=== PATIENT | male | born 1970 | race Caucasian/White ===

== ENCOUNTER 2020-06-05 20:19 | Inpatient (IN) ==
[2020-06-05] MEDS ORDERED: SODIUM CHLORIDE 0.9% 1000ML 1,000 ML IV STA (20:58)
[2020-06-05] MEDS ORDERED: ONDANSETRON INJ 2 MG/ML 2 ML VIAL IV STA ×2 (20:58→22:43)
[2020-06-05] MEDS ORDERED: MoRPHine SULFATE 4 MG/ML 1 ML CARP\\VIAL IV STA ×2 (20:58→22:43)
[2020-06-05 21:18] LABS: Basophils # (auto) 0.03 K/uL (0-0.2); Basophils % (auto) 0.2 %; Eosinophils # (auto) 0.13 K/uL (0-0.5); Eosinophils % (auto) 0.8 %; Hematocrit (blood only) 43.5 % (42-52); Hemoglobin 15.4 g/dL (14.0-18.0); Immature Granulocytes # (auto) 0.11 K/uL (0.00-0.02); Immature Granulocytes % (auto) 0.7 %; Lymphocytes # (auto) 2.59 K/uL (1.2-3.4); Lymphocytes % (auto) 16.7 %; Mean Corpuscular Hemoglobin 31.1 pg (25-34); Mean Corpuscular Hgb Conc 35.4 g/dL (32-36); Mean Corpuscular Volume 87.9 fL (80-100); Mean Platelet Volume 10.6 fL (7.4-10.4); Monocytes # (auto) 1.01 K/uL (0.11-0.59); Monocytes % (auto) 6.5 %; Neutrophils % (auto) 75.1 %; Platelet Count 202 K/uL (130-400); RDW Coefficient of Variation 12.8 % (11.5-14.5); RDW Standard Deviation 41.3 fL (36.4-46.3); Red Blood Count 4.95 M/uL (4.7-6.1); White Blood Count 15.47 K/uL (4.8-10.8)
[2020-06-05 21:29] LABS: INR 1.1 (0.9-1.1); Partial Thromboplastin Ratio 0.9; Partial Thromboplastin Time 22.4 Seconds (21.0-31.0)
[2020-06-05 21:33] LABS: Alanine Aminotransferase 25 U/L (12-78); Aspartate Aminotransferase 32 U/L (15-37); BUN Creatinine Ratio 19.5 (10-20); Bilirubin Direct < 0.1 mg/dl (0-0.2); Blood Urea Nitrogen 24 mg/dl (7-18); Calcium 8.8 mg/dl (8.5-10.1); Carbon Dioxide 22 mmol/L (21-32); Chloride 111 mmol/L (98-107); Creatinine Clr Calc Pharmacy 82.4 ml/min; Est GFR (African American) 77.5; Est GFR (Non-African American) 66.9; Glucose 136 mg/dl (70-99); Potassium 2.9 mmol/L (3.5-5.1); Sodium 142 mmol/L (136-145)
[2020-06-05 21:41] LABS: Alkaline Phosphatase 54 U/L (45-117); Bilirubin,Total 0.7 mg/dl (0.2-1); Lipase 27643 U/L (73-393); Total Protein 7.4 gm/dl (6.4-8.2); Troponin I < 0.015 ng/ml (0-0.045)
[2020-06-05 22:08] LABS: D Dimer 640 ug/L FEU (0-500)
[2020-06-05] MEDS ORDERED: SODIUM CHLORIDE 0.9% 1000ML 1,000 ML IV ONE (22:43)
[2020-06-05] MEDS ORDERED: OPTIRAY 320 125ml IV ONE (23:45)
[2020-06-06 00:56] LABS: Influenza A virus by PCR Negative (Neg); Influenza B virus by PCR Negative (Neg); RSV by PCR Negative (Neg); SARS CoV2 RNA(COVID-19) InHosp NEGATIVE (Negative)
[2020-06-06] MEDS ORDERED: ONDANSETRON INJ 2 MG/ML 2 ML VIAL IV STA (01:34)
[2020-06-06] MEDS ORDERED: SODIUM CHLORIDE 0.9% 1000ML 1,000 ML IV SCH (01:45)
[2020-06-06] MEDS: POTASSIUM CHLORIDE / WTR 10 MEQ/100 ML PLCT IV SCH ×2 (01:59→03:18)
--- NOTE | 2020-06-06 02:07 | History & Physical Report ---
Date of Service June 06, 2020 Assessment & Plan (1) Acute pancreatitis: Lipase 12446 upon admission. Follow serial CBC with differential, chemistry profile and lipase levels CT angiography chest PE protocol is negative for PE. Aneurysm of the aortic root measuring 5 cm. Mild cardiomegaly. Heterogeneous opacities in the left upper lobe and both lower lobes suggesting atelectasis or infiltrates NPO Famotidine 20 mg IV every 12 hours NSS + KCl 20 mEq at 125 mils per hour Zofran 4 mg IV every 6 hours as needed Famotidine 20 mg IV every [address] scan abdomen Order MRCP, since patient has already had CT angiography of chest, and unable to use dye for CT of abdomen and pelvis Will need orbital x-rays Present on Admission?: Yes (2) Hypokalemia: NSS + KCl 20 mEq at 125 mils per hour. Patient did receive 210 mEq riders while in the ED Repeat laboratories in a.m. Present on Admission?: Yes (3) Pneumonia: CT angiography suggesting infiltrates left upper and bilateral lower lobes. Hypoxia, with lowest pulse ox recorded 78% on room air With history of vomiting, may represent aspiration. Placed on Zosyn 4.5 g IV every 8 hours DuoNebs every 2 hours as needed Nasal cannula oxygen, titrate to keep pulse ox 94 to 95% Present on Admission?: Yes History of Present Illness Chief Complaint: The patient presents to the emergency department with acute onset of back pain, nausea vomiting about 7 PM this evening, about 1 1/2 hours after supper Primary Care Provider: Dharmesh Ryan The patient is a 50-year-old male with no significant past medical history, who presents with symptoms of acute onset of back pain, nausea and vomiting about 1- 1/2 hours after eating supper this evening. He said no previous occurrence of the symptoms. He denies any recent travel or sick exposures. He denies any alcohol use. Allergies Allergy/AdvReac Type Severity Reaction Status Date / Time No Known Allergies Allergy Verified 06/05/20 21:06 Home Medications Medication Instructions Recorded Confirmed Type No Known Home Medications 06/05/20 06/05/20 History Past Med/Surg History Medical History (Updated 06/06/20 @ 03:12 by Ar Hoyt MD) No pertinent family history No pertinent past medical history Surgical History (Updated 06/06/20 @ 02:13 by Vick Boswell) No pertinent past surgical history Social History Smoking Status: Never smoker Hx Alcohol Use: No Hx Substance Use: No Preferred Language: Belarusian Communication Ability: Effective Air Boatswain Required: No Current Living Situation: Spouse Feels Safe at Home: Yes Assistive Devices: None Review of Systems Review of Systems: The patient denies chest pain, palpitations, shortness of breath, dyspnea on exertion, cough, lower extremity swelling, sore throat, fevers, chills, sweats, diarrhea , constipation, abdominal pain, pelvic pain, blood in urine or stool, dysuria, urinary frequency or urgency, lightheadedness, dizziness, headache, memory loss, loss of consciousness, rash, abnormal bruising or bleeding, imbalance, focal or generalized weakness, numbness or tingling in arms or legs, generalized arthralgias or myalgias, neck pain, or night sweats. The review of systems is otherwise negative other than for that already noted above, and at least 10 systems have been reviewed. Physical Exam Physical Exam: The patient is awake, alert and oriented 3, well developed and well nourished, normocephalic and atraumatic, lying in bed and in no acute distress. HEENT--PERRL, EOMI, mucous membranes and oropharynx dry. Neck--supple. No JVD. No bruits. Thyroid normal, trachea midline, no theron opathy. Heart--normal S1 and S2. No murmurs, rubs or gallops. Lungs--clear bilaterally, no respiratory distress, no accessory muscle use. Abdomen--normal bowel sounds and soft. Tender left flank. Nondistended Extremities--no cyanosis or clubbing. No edema. Dermatologic--normal skin turgor, normal color, no abnormal lymph nodes, no rash. Neurologic--cranial nerves II through XII grossly intact. Rheumatologic--normal range of motion. Psychiatric--normal affect. Results & Data Results & Data ([facility]) Vital Signs (Past 12 Hours) Vital Signs Temp Pulse Resp BP Pulse Ox 06/06/20 00:49 92 06/06/20 00:48 66 24 149/93 H 90 06/06/20 00:30 64 21 06/06/20 00:00 73 20 06/05/20 23:30 91 06/05/20 23:00 94 06/05/20 22:58 93 06/05/20 22:08 126/82 06/05/20 21:30 58 L 17 125/76 99 06/05/20 21:20 58 L 14 98 06/05/20 21:15 55 L 15 117/77 95 06/05/20 21:10 69 22 93 06/05/20 21:00 58 L 20 95 06/05/20 20:50 65 15 94 06/05/20 20:40 65 22 96 06/05/20 20:39 61 20 96 06/05/20 20:38 98.1 F 56 L 20 117/71 96 06/05/20 20:33 60 26 H 117/71 96 Laboratory Results Laboratory Results WBC 15.47 K/uL (4.8-10.8) H 06/05/20 20:30 RBC 4.95 M/uL (4.7-6.1) 06/05/20 20:30 Hgb 15.4 g/dL (14.0-18.0) 06/05/20 20:30 Hct 43.5 % (42-52) 06/05/20 20:30 MCV 87.9 fL (80-100) 06/05/20 20:30 MCH 31.1 pg (25-34) 06/05/20 20:30 MCHC 35.4 g/dL (32-36) 06/05/20 20:30 RDW Std Deviation 41.3 fL (36.4-46.3) 06/05/20 20:30 RDW Coeff of Brittany 12.8 % (11.5-14.5) 06/05/20 20:30 Plt Count 202 K/uL (130-400) 06/05/20 20:30 MPV 10.6 fL (7.4-10.4) H 06/05/20 20:30 Immature Gran % (Auto) 0.7 % 06/05/20 20:30 Neut % (Auto) 75.1 % 06/05/20 20:30 Lymph % (Auto) 16.7 % 06/05/20 20:30 Barron % (Auto) 6.5 % 06/05/20 20:30 Eos % (Auto) 0.8 % 06/05/20 20:30 Baso % (Auto) 0.2 % 06/05/20 20:30 Neut # (Auto) 11.60 K/uL (1.4-6.5) H 06/05/20 20:30 Lymph # (Auto) 2.59 K/uL (1.2-3.4) 06/05/20 20:30 Barron # (Auto) 1.01 K/uL (0.11-0.59) H 06/05/20 20:30 Eos # (Auto) 0.13 K/uL (0-0.5) 06/05/20 20:30 Baso # (Auto) 0.03 K/uL (0-0.2) 06/05/20 20:30 Immature Gran # (Auto) 0.11 K/uL (0.00-0.02) H 06/05/20 20:30 PT 11.0 Seconds (9.0-12.0) 06/05/20 20:30 INR 1.1 (0.9-1.1) 06/05/20 20:30 APTT 22.4 Seconds (21.0-31.0) 06/05/20 20:30 PTT Ratio 0.9 06/05/20 20:30 D-Dimer 640 ug/L FEU (0-500) H* 06/05/20 20:30 Sodium 142 mmol/L (136-145) 06/05/20 20:30 Potassium 2.9 mmol/L (3.5-5.1) L 06/05/20 20:30 Chloride 111 mmol/L (98-107) H 06/05/20 20:30 Carbon Dioxide 22 mmol/L (21-32) 06/05/20 20:30 Anion Gap 9.0 (3-11) 06/05/20 20:30 BUN 24 mg/dl (7-18) H 06/05/20 20:30 Creatinine 1.24 mg/dl (0.6-1.4) 06/05/20 20:30 Est Cr Clr Drug Dosing 82.4 ml/min 06/05/20 20:30 Est GFR ( Amer) 77.5 06/05/20 20:30 Est GFR (Non-Af Amer) 66.9 06/05/20 20:30 BUN/Creatinine Ratio 19.5 (10-20) 06/05/20 20:30 Glucose 136 mg/dl (70-99) H 06/05/20 20:30 Calcium 8.8 mg/dl (8.5-10.1) 06/05/20 20:30 Total Bilirubin 0.7 mg/dl (0.2-1) 06/05/20 20:30 Direct Bilirubin < 0.1 mg/dl (0-0.2) 06/05/20 20:30 AST 32 U/L (15-37) 06/05/20 20:30 ALT 25 U/L (12-78) 06/05/20 20:30 Alkaline Phosphatase 54 U/L (45-117) 06/05/20 20:30 Troponin I < 0.015 ng/ml (0-0.045) 06/05/20 20:30 Total Protein 7.4 gm/dl (6.4-8.2) 06/05/20 20:30 Albumin 4.0 gm/dl (3.4-5.0) 06/05/20 20:30 Lipase 79946 U/L (73-393) H 06/05/20 20:30 COVID-19 Eval Order CovFluRsv at [facility] 06/06/20 00:01 SARS-CoV-2 (PCR) NEGATIVE (Negative) 06/06/20 00:01 Influenza Type A (PCR) Negative (Neg) 06/06/20 00:01 Influenza Type B (PCR) Negative (Neg) 06/06/20 00:01 RSV (RT-PCR) Negative (Neg) 06/06/20 00:[address] [facility] Patient: LIDIA PRECIADO (Male) : 68 Status: ER Date: 06/05/20 23:54 Room #: History: SHORTNESS OF BREATH, ABDOMINAL PAINS, NAUSEA AND VOMITING Slices: [id number] Priors: Tech: Shelby Joiner @ [phone] Exams: CTA CHEST Contrast: IV Amt: 119ML OF OPTIRAY 320 Accession Numbers: [id number] Preliminary Findings Only See Final Report For Complete Findings CTA CHEST: No acute pulmonary embolism. Aneurysm of the aortic root measuring 5 cm. Mild cardiomegaly. No pericardial effusion. Heterogeneous dependent opacities in the left upper lobe and both lower lobes, atelectasis or infiltrates. No pleural effusion or pneumothorax. Small sliding-type hiatal hernia. No acute osseous findings. Radiologist: Patrick Rasmussen M.D. Study ready at 00:00 and initial results transmitted at 00:11 *This report constitutes a preliminary interpretation only. Non-acute findings felt to be unrelated to the clinical presentation may not be discussed in this report. The study will be interpreted and a final report will be generated by the local Radiologist the following shift. To reach the hospital radiology department call [phone]. If a discrepancy is found between the preliminary and final interpretations of this study, please notify us via our Client Portal at [email or web address] under [email or web address].You can also fax this report with a description of the discrepancy, or include the final report, to our daytime fax number [phone].If faxing, please indicate the severity of discrepancy using one of the following categories: [ ] 1 - Agree/Informational [ ] 2 - Unlikely to Affect Management [ ] 3 - Possible Eventual Change of Management [ ] 4 - Probable Immediate Change of Management For all other patient related information, please fax us at [phone]. [id number] Code Status & VTE Plan Code Status Full code VTE Prophylaxis Plan VTE Prophylaxis will be ordered: Yes PG Care Time/CCT Total # of Minutes Spent Total Time Spent with Patient: Total time spent is greater than 50% in coordination of care (as documented) at patient's floor/unit and/or counseling patient: Coding Level of Care Code 87424 Initial Inpt Care Lvl 3 Diagnoses Acute pancreatitis K85.90 Acute pancreatitis complication: unspecified Pancreatitis type: unspecified pancreatitis type Hypokalemia E87.6 Pneumonia J18.9 (1) Acute pancreatitis Acute pancreatitis complication: unspecified Pancreatitis type: unspecified pancreatitis type Qualified Code(s): K85.90 - Acute pancreatitis without necrosis or infection, unspecified
--- NOTE | 2020-06-06 02:18 | Emergency Department Note ---
History of Present Illness General Chief Complaint: Abdominal Pain Time Seen by Provider: 06/05/20 20:30 History of Present Illness Provider Complaint: abdominal pain Onset (ago): 1 day(s) Pain Consistency: constant Location: epigastric Radiation: back Migration to: no migration Severity: moderate Maximum Pain Intensity: 5 Current Pain Intensity: 5 Quality: + stabbing and + sharp Relieved By: + nothing Exacerbated By: + nothing Context: no foreign travel, no possible food poisoning, no recent antibiotic use and no recent surgery/procedure Associated Symptoms: + nausea, + vomiting and + back pain; no diarrhea, no fever, no dysuria, no hematemesis, no hematochezia, no melena, no hematuria, no anorexia, no neck pain and no breathing difficulty Home Medications Medication Instructions Recorded Confirmed Type No Known Home Medications 06/05/20 06/05/20 History Allergies Allergy/AdvReac Type Severity Reaction Status Date / Time No Known Allergies Allergy Verified 06/05/20 21:06 Past Med/Surg History Medical History (Updated 06/06/20 @ 02:22 by Vick Boswell) No pertinent family history No pertinent past medical history Surgical History (Updated 06/06/20 @ 02:13 by Vick Boswell) No pertinent past surgical history Social History Smoking Status: Never smoker Hx Alcohol Use: No Hx Substance Use: No Preferred Language: Macedonian Communication Ability: Effective 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 Current Living Situation: Spouse Feels Safe at Home: Yes Assistive Devices: None Review of Systems A total of 10 systems reviewed and were otherwise negative Physical Exam Vital Signs: Vital Signs - 24 hr 06/05/20 20:33 06/05/20 20:38 06/05/20 20:39 Temperature 36.7 C Temperature Source Oral Pulse Rate 60 56 L 61 Pulse Rate from Sp O2 Sensor 60 61 Respiratory Rate 26 H 20 20 Respiratory Effort / Characteristics Non-Labored Sponta neous Respiratory Depth Normal Blood Pressure 117/71 117/71 Blood Pressure Shayy n 86 86 Blood Pressure Pos ition Lying Pulse Oximetry 96 96 96 Oxygen Delivery Me thod Room Air Oxygen Flow Rate Sepsis Recent Feve r Within 48 Hours No Sepsis New/Unexpla ined Change in Men jazzy Status No Sepsis Action Take n by Nursing No Action Required Oxygen Flow Rate - Titration Pulse Oximetry Pos t Tiitration 06/05/20 20:40 06/05/20 20:50 06/05/20 21:00 Temperature Temperature Source Pulse Rate 65 65 58 L Pulse Rate from Sp O2 Sensor 65 66 58 L Respiratory Rate 22 15 20 Respiratory Effort / Characteristics Respiratory Depth Blood Pressure Blood Pressure Shayy n Blood Pressure Pos ition Pulse Oximetry 96 94 95 Oxygen Delivery Me thod Room Air Oxygen Flow Rate Sepsis Recent Feve r Within 48 Hours Sepsis New/Unexpla ined Change in Men jazzy Status Sepsis Action Take n by Nursing Oxygen Flow Rate - Titration Pulse Oximetry Pos t Tiitration 06/05/20 21:10 06/05/20 21:15 06/05/20 21:20 Temperature Temperature Source Pulse Rate 69 55 L 58 L Pulse Rate from Sp O2 Sensor 69 55 L 58 L Respiratory Rate 22 15 14 Respiratory Effort / Characteristics Respiratory Depth Blood Pressure 117/77 Blood Pressure Shayy n 90 Blood Pressure Pos ition Pulse Oximetry 93 95 98 Oxygen Delivery Me thod Room Air Oxygen Flow Rate Sepsis Recent Feve r Within 48 Hours Sepsis New/Unexpla ined Change in Men jazzy Status Sepsis Action Take n by Nursing Oxygen Flow Rate - Titration 3 Pulse Oximetry Pos t Tiitration 97 06/05/20 21:30 06/05/20 22:08 06/05/20 22:58 Temperature Temperature Source Pulse Rate 58 L Pulse Rate from Sp O2 Sensor 58 L 64 Respiratory Rate 17 Respiratory Effort / Characteristics Respiratory Depth Blood Pressure 125/76 126/82 Blood Pressure Shayy n 92 96 Blood Pressure Pos ition Pulse Oximetry 99 93 Oxygen Delivery Me thod Oxygen Flow Rate Sepsis Recent Feve r Within 48 Hours Sepsis New/Unexpla ined Change in Men jazzy Status Sepsis Action Take n by Nursing Oxygen Flow Rate - Titration Pulse Oximetry Pos t Tiitration 06/05/20 23:00 06/05/20 23:30 06/06/20 00:00 Temperature Temperature Source Pulse Rate 73 Pulse Rate from Sp O2 Sensor 62 63 Respiratory Rate 20 Respiratory Effort / Characteristics Respiratory Depth Blood Pressure Blood Pressure Shayy n Blood Pressure Pos ition Pulse Oximetry 94 91 Oxygen Delivery Me thod Oxygen Flow Rate Sepsis Recent Feve r Within 48 Hours Sepsis New/Unexpla ined Change in Men jazzy Status Sepsis Action Take n by Nursing Oxygen Flow Rate - Titration Pulse Oximetry Pos t Tiitration 06/06/20 00:30 06/06/20 00:48 06/06/20 00:49 Temperature Temperature Source Pulse Rate 64 66 Pulse Rate from Sp O2 Sensor Respiratory Rate 21 24 Respiratory Effort / Characteristics Respiratory Depth Blood Pressure 149/93 H Blood Pressure Shayy n 111 Blood Pressure Pos ition Pulse Oximetry 90 92 Oxygen Delivery Me thod Room Air Nasal Cannula Oxygen Flow Rate 2 Sepsis Recent Feve r Within 48 Hours Sepsis New/Unexpla ined Change in Men jazzy Status Sepsis Action Take n by Nursing Oxygen Flow Rate - Titration Pulse Oximetry Pos t Tiitration Physical Exam: Physical Exam GENERAL: He is oriented to person, place, and time. He appears well-developed and well-nourished. He does not appear distressed. HENT: Exam performed. - Head: Normocephalic and atraumatic. - Right Ear: External ear normal. No mastoid tenderness. - Left Ear: External ear normal. No mastoid tenderness. - Mouth/Throat: The oropharynx is clear and moist. No trismus in the jaw. No dental abscesses or uvula swelling. No oropharyngeal exudate or tonsillar abscesses. EYES: Conjunctivae and EOM are normal. Pupils are equal, round, and reactive to light. Right eye exhibits no discharge. Left eye exhibits no discharge. No scleral icterus. NECK: Normal range of motion. Neck supple. No JVD present. No spinous process tenderness present. No carotid bruit present. No rigidity. No tracheal deviation and normal range of motion present. No Brudzinski's sign and no Kernig's sign noted. CV: Normal rate, regular rhythm, normal heart sounds and intact distal pulses. There is no peripheral edema. Palpable radial pulses bue. PULM/CHEST: Effort normal and breath sounds normal. No respiratory distress. No stridor. He has no wheezes. He has no rales. - Chest Wall: He exhibits no tenderness. ABD: The abdomen is soft. Bowel sounds are normal. He has no distension. No mass is present. There is tenderness to palpation of the epigastric area. There is no rebound, no guarding, no Chang's sign and no tenderness at McBurney's point. Rovsig negative. MUSC/SKEL: Normal range of motion. There is no peripheral edema, tenderness or deformity. LYMPH: No cervical adenopathy. NEURO: He is alert and oriented to person, place, and time. He has normal strength. No cranial nerve deficit or sensory deficit. Coordination and gait normal. GCS eye subscore is 4. GCS verbal subscore is 5. GCS motor subscore is 6. Cerebellar tests wnl. SKIN: Skin is warm and dry. He is not diaphoretic. PSYCH: He has a normal mood and affect. Behavior is normal. Judgment and thought content normal. Course Course 2030: The patient was evaluated in room C12. A complete history and physical exam was performed Cardiac monitoring: An order was placed for continuous cardiac monitoring. The monitor shows a rate of 60 with sinus rhythm 2245: Vital signs stable. Labs show leukocytosis of 15.4. Potassium 2.9. Lipase 27,643. D-dimer elevated 640. Will obtain CTA of the chest and plan on admitting the patient to the hospitalist team. Potassium will be replaced in the emergency department. 0015: CTA negative for PE. Patient required multiple doses of pain medication for pancreatitis. Will admit to the hospital service Dr. Rosy Romano any hospitalist. Administered Medications Sodium Chloride (Nss 1000ml) 1,000 mls @ 125 mls/hr IV .Q8H ARIANA Stop: 07/06/20 01:44 Last Admin: 06/06/20 01:59 Dose: 125 mls/hr Documented by: [id number] Potassium Chloride (K Cameron / Wtr) 10 meq in 100 mls @ 100 mls/hr IV Q1H ARIANA Stop: 06/06/20 03:44 Last Admin: 06/06/20 01:59 Dose: 100 mls/hr Documented by: [id number] Discontinued Medications Sodium Chloride (Nss 1000ml) 1,000 mls @ 999 mls/hr IV .Q1H1M STA Stop: 06/05/20 21:58 Last Infusion: 06/05/20 22:05 Dose: 0 mls/hr Documented by: [id number] Admin: 06/05/20 21:04 Dose: 999 mls/hr Documented by: [id number] Sodium Chloride (Nss 1000ml) 1,000 mls @ 999 mls/hr IV .Q1H1M ONE Stop: 06/05/20 23:43 Last Infusion: 06/06/20 00:49 Dose: 0 mls/hr Documented by: [id number] Admin: 06/05/20 22:56 Dose: 999 mls/hr Documented by: [id number] Ioversol (Optiray 320 125ml) 119 ml IV ONCE ONE Stop: 06/05/20 23:46 Last Admin: 06/05/20 23:45 Dose: 119 ml Documented by: [id number] Morphine Sulfate (Morphine Sulfate 4 Mg/Ml 1 Ml Carp\Vial) 4 mg IV NOW STA Stop: 06/05/20 20:59 Last Admin: 06/05/20 21:04 Dose: 4 mg Documented by: [id number] Morphine Sulfate (Morphine Sulfate 4 Mg/Ml 1 Ml Carp\Vial) 4 mg IV NOW STA Stop: 06/05/20 22:44 Last Admin: 06/05/20 22:56 Dose: 4 mg Documented by: [id number] Ondansetron HCl (Ondansetron Inj 2 Mg/Ml 2 Ml Vial) 4 mg IV NOW STA Stop: 06/05/20 20:59 Last Admin: 06/05/20 21:04 Dose: 4 mg Documented by: [id number] Ondansetron HCl (Ondansetron Inj 2 Mg/Ml 2 Ml Vial) 4 mg IV NOW STA Stop: 06/05/20 22:44 Last Admin: 06/05/20 22:56 Dose: 4 mg Documented by: [id number] Ondansetron HCl (Ondansetron Inj 2 Mg/Ml 2 Ml Vial) 4 mg IV NOW STA Stop: 06/06/20 01:35 Last Admin: 06/06/20 01:59 Dose: 4 mg Documented by: [id number] Medical Decision Making Laboratory Data Result diagrams: 06/05/20 20:30 06/05/20 20:30 Lab Results 06/05/20 06/05/20 06/05/20 Range/Units 20:30 20:30 20:30 WBC 15.47 H (4.8-10.8) K/uL RBC 4.95 (4.7-6.1) M/uL Hgb 15.4 (14.0-18.0) g/dL Hct 43.5 (42-52) % MCV 87.9 (80-100) fL MCH 31.1 (25-34) pg MCHC 35.4 (32-36) g/dL RDW Std Deviation 41.3 (36.4-46.3) fL RDW Coeff of Brittany 12.8 (11.5-14.5) % Plt Count 202 (130-400) K/uL MPV 10.6 H (7.4-10.4) fL Immature Gran % (Auto) 0.7 % Neut % (Auto) 75.1 % Lymph % (Auto) 16.7 % [place] % (Auto) 6.5 % Eos % (Auto) 0.8 % Baso % (Auto) 0.2 % Neut # (Auto) 11.60 H (1.4-6.5) K/uL Lymph # (Auto) 2.59 (1.2-3.4) K/uL [place] # (Auto) 1.01 H (0.11-0.59) K/uL Eos # (Auto) 0.13 (0-0.5) K/uL Baso # (Auto) 0.03 (0-0.2) K/uL Immature Gran # (Auto) 0.11 H (0.00-0.02) K/uL PT 11.0 (9.0-12.0) Seconds INR 1.1 (0.9-1.1) APTT 22.4 (21.0-31.0) Seconds PTT Ratio 0.9 D-Dimer 640 H* (0-500) ug/L FEU Sodium 142 (136-145) mmol/L Potassium 2.9 L (3.5-5.1) mmol/L Chloride 111 H (98-107) mmol/L Carbon Dioxide 22 (21-32) mmol/L Anion Gap 9.0 (3-11) BUN 24 H (7-18) mg/dl Creatinine 1.24 (0.6-1.4) mg/dl Est Cr Clr Drug Dosing 82.4 ml/min Est GFR ( Amer) 77.5 Est GFR (Non-Af Amer) 66.9 BUN/Creatinine Ratio 19.5 (10-20) Glucose 136 H (70-99) mg/dl Calcium 8.8 (8.5-10.1) mg/dl Total Bilirubin 0.7 (0.2-1) mg/dl Direct Bilirubin < 0.1 (0-0.2) mg/dl AST 32 (15-37) U/L ALT 25 (12-78) U/L Alkaline Phosphatase 54 (45-117) U/L Troponin I < 0.015 (0-0.045) ng/ml Total Protein 7.4 (6.4-8.2) gm/dl Albumin 4.0 (3.4-5.0) gm/dl Lipase 43341 H (73-393) U/L COVID-19 Eval Order SARS-CoV-2 (PCR) (Negative) Influenza Type A (PCR) (Neg) Influenza Type B (PCR) (Neg) RSV (RT-PCR) (Neg) 06/06/20 06/06/20 Range/Units 00:01 00:01 WBC (4.8-10.8) K/uL RBC (4.7-6.1) M/uL Hgb (14.0-18.0) g/dL Hct (42-52) % MCV (80-100) fL MCH (25-34) pg MCHC (32-36) g/dL RDW Std Deviation (36.4-46.3) fL RDW Coeff of Brittany (11.5-14.5) % Plt Count (130-400) K/uL MPV (7.4-10.4) fL Immature Gran % (Auto) % Neut % (Auto) % Lymph % (Auto) % [place] % (Auto) % Eos % (Auto) % Baso % (Auto) % Neut # (Auto) (1.4-6.5) K/uL Lymph # (Auto) (1.2-3.4) K/uL [place] # (Auto) (0.11-0.59) K/uL Eos # (Auto) (0-0.5) K/uL Baso # (Auto) (0-0.2) K/uL Immature Gran # (Auto) (0.00-0.02) K/uL PT (9.0-12.0) Seconds INR (0.9-1.1) APTT (21.0-31.0) Seconds PTT Ratio D-Dimer (0-500) ug/L FEU Sodium (136-145) mmol/L Potassium (3.5-5.1) mmol/L Chloride (98-107) mmol/L Carbon Dioxide (21-32) mmol/L Anion Gap (3-11) BUN (7-18) mg/dl Creatinine (0.6-1.4) mg/dl Est Cr Clr Drug Dosing ml/min Est GFR ( Amer) Est GFR (Non-Af Amer) BUN/Creatinine Ratio (10-20) Glucose (70-99) mg/dl Calcium (8.5-10.1) mg/dl Total Bilirubin (0.2-1) mg/dl Direct Bilirubin (0-0.2) mg/dl AST (15-37) U/L ALT (12-78) U/L Alkaline Phosphatase (45-117) U/L Troponin I (0-0.045) ng/ml Total Protein (6.4-8.2) gm/dl Albumin (3.4-5.0) gm/dl Lipase (73-393) U/L COVID-19 Eval Order CovFluRsv at [facility] SARS-CoV-2 (PCR) NEGATIVE (Negative) Influenza Type A (PCR) Negative (Neg) Influenza Type B (PCR) Negative (Neg) RSV (RT-PCR) Negative (Neg) Imaging Data My Impression: Chest x-ray negative. Airway clear. No pneumothorax. No consolidation. No cardiomegaly or cephalization.. No free air under the diaphragm. No fractures of the skeletal structures. No air-fluid levels. Radiologist's Impression: Preliminary Findings Only See Final Report For Complete Findings CTA CHEST: No acute pulmonary embolism. Aneurysm of the aortic root measuring 5 cm. Mild cardiomegaly. No pericardial effusion. Heterogeneous dependent opacities in the left upper lobe and both lower lobes, atelectasis or infiltrates. No pleural effusion or pneumothorax. Small sliding-type hiatal hernia. No acute osseous findings. Radiologist: Patrick Rasmussen M.D. Study ready at 00:00 and initial results transmitted at 00:11 Preliminary Findings Only See Final Report For Complete Findings US GALLBLADDER: No cholelithiasis. Borderline gallbladder wall thickness measuring 3 mm. No convincing imaging findings of acute cholecystitis. No biliary dilatation. No hydronephrosis of the right kidney. Liver is unremarkable. Radiologist: Patrick Rasmussen M.D. Study ready at 22:29 and initial results transmitted at 22:55 ECG Data Indication: abdominal pain Rate (beats per minute): 56 Rhythm: normal sinus Findings: no ST depression, no ST elevation and no prolonged QT MDM Narrative 2030: The patient was evaluated in room C12. A complete history and physical exam was performed Cardiac monitoring: An order was placed for continuous cardiac monitoring. The monitor shows a rate of 60 with sinus rhythm 2245: Vital signs stable. Labs show leukocytosis of 15.4. Potassium 2.9. Lipase 27,643. D-dimer elevated 640. Will obtain CTA of the chest and plan on admitting the patient to the hospitalist team. Potassium will be replaced in the emergency department. 0015: CTA negative for PE. Patient required multiple doses of pain medication for pancreatitis. Will admit to the hospital service Dr. Gallegos [facility] hospitalist. Impression & Plan Acute pancreatitis Discharge Plan Visit Data Chief Complaint: Abdominal Pain ED Provider: Vick Boswell Discharge Problem: Acute pancreatitis Patient Disposition: Admitted As Inpatient Forms Stand Alone Forms: [place] Prescriptions Prescriptions: No Action No Known Home Medications RF: 0 Referrals Referrals: Dharmesh Ryan [Primary Care Provider] - Discharge Problem: Acute pancreatitis Qualifiers: Pancreatitis type: unspecified pancreatitis type Acute pancreatitis complication: unspecified Qualified Code(s): K85.90 - Acute pancreatitis without necrosis or infection, unspecified
[2020-06-06] MEDS ORDERED: HYDROmorphone INJ 0.5 MG/0.5 ML SYR ONE (02:27)
[2020-06-06] MEDS: HYDROmorphone INJ 0.5 MG/0.5 ML SYR IV PRN ×6 (02:31→20:49)
[2020-06-06] MEDS ORDERED: PIPERACILL/TAZOBAC CONSULT ACTIVE PRN (03:13)
[2020-06-06] MEDS ORDERED: ALBUT/IPRATROP 3MG/0.5MG NEB 3 ML VIAL NEB PRN (03:14)
[2020-06-06] MEDS ORDERED: PROMETHAZINE HCL 12.5 MG in SODIUM CHLORIDE 0.9% 50 ML IV STA (03:25)
[2020-06-06] MEDS ORDERED: PIPERACILLIN/TAZOBACTAM 4.5 GM in DEXTROSE 5% 100 ML IV ONE (03:30)
[2020-06-06] MEDS: FAMOTIDINE 20 MG in SYRINGE 3 ML IV SCH ×2 (04:20→15:56)
[2020-06-06] MEDS: NSS + 20MEQ KCL 20 MEQ/1,000 ML BAG IV SCH ×2 (04:20→13:06)
--- NOTE | 2020-06-06 07:01 | XRay Report ---
XR abdomen 2V w PA chest HISTORY: 50 years-old Male epigastric pain acute epigastric abdominal pain COMPARISON: Right upper quadrant abdominal ultrasound and CTA chest study of same day TECHNIQUE: AP view of the chest with upright and supine views of the abdomen FINDINGS: Cardiac silhouette is mildly enlarged. Right hemidiaphragmatic elevation with mild bibasilar opacitie s. There is no pneumothorax, pleural effusion or overt pulmonary edema. Degenerative changes of the s houlders and spine. There is no pneumatosis or pneumoperitoneum. Bowel gas pattern is nonobstructive. No urolith identifi ed. Mild levoscoliosis of the lumbar spine. No acute fracture. IMPRESSION: 1. Right hemidiaphragm elevation with bibasilar opacities suggestive of atelectasis versus pneumoniti s. 2. Nonobstructive bowel gas pattern. ACT 112: Negative or not required by law. The above report was generated using voice recognition software. It may contain grammatical, syntax o r spelling errors. Electronically signed by: Wicho Haines M.D. 06/06/2020 7:00 AM
--- NOTE | 2020-06-06 07:18 | Hospitalist Progress Note ---
Date of Service June 06, 2020 Assessment & Plan (1) Acute pancreatitis: 50 y/o male w/ no significant past medical hx who presents w/ pancreatitis x 1 day. acute pancreatitis, confirmed by imaging - no etoh use, obesity, gallstones, or tobacco use. lipid panel wnl. - Lipase 67295->[id number] - no acute findings on gallbladder US. MRCP consistent w/ acute pancreatitis. outpt imaging f/u because cannot r/o pancreatic head mass - pain control w/ prn dilaudid, morphine and tylenol - clear liquid diet - famotidine IV BID. zofran IV prn pneumonia - bibailar densities on cxr. groundglass opacities on ct. imaging suggests pneumonia vs atelectasis. CTA neg for PE. + leukocytosis ~15. afebrile - on empiric IV Zosyn - duonebs as needed - new O2 requirement this admission, satting low 90s on 2L nasal cannula - will order sputum culture and gram stain because of purulent sputum hypokalemia, resolved - s/p repletion dilated aortic root - outpt f/u pulm nodules, up to 6 mm - outpt f/u FEN/GI: clear liquid diet. 250 mL/hr LR. code: full ppx: lovenox sq 40mg daily. famotidine IV 20 q12 dispo: med/surg (2) Pneumonia: (3) Hypokalemia: Admission and Anticipated Discharge Date Admission Date: June 06, 2020 Supervising Physician Co-Signing Physician Notes Attending Attestation I also saw the patient confirmed perez portions of the history and physical examination. Agree with the impression and plan as noted in the resident documentation. Upon my exam of the patient around 2 PM, he complained of continued abdominal pain, although improved compared to yesterday. His was at bedside. He describes discomfort really in his entire abdomen. He describes a tight sensation across his upper abdomen that radiates into his back. He also has a generalized discomfort of his lower abdomen as well. Exam 151/95, 79, 18, 36.8, 92% on nasal cannula 2 L/min He is alert and oriented. He does look to be uncomfortable. Heart regular Respirations are nonlabored. He is able to speak in full sentences. He does have tenderness throughout his abdomen. No rebound or guarding is appreciated on my exam Laboratory White blood cell count 15.26, hemoglobin 16.2, platelet count 183. Lipase upon admission 27,643, repeat today 3751. Lipid profile shows total cholesterol 169, LDL 113, HDL 39, triglycerides 84. Liver function is unremarkable with AST 29, ALT 23, alkaline phosphatase 50. D-dimer 640. Imaging Gallbladder ultrasound was unremarkable. Common bile duct measured at 6 mm. A CTA of the chest was negative for pulmonary emboli. Also noted was moderate ground glass opacities, atelectasis favored; a dilated aortic root; a small amount of fluid adjacent to the gallbladder; a few low suspicion pulmonary nodules measuring up to 6 mm. MRCP demonstrated moderate peripancreatic fluid and edematous pancreas consistent with acute pancreatitis. Follow-up dedicated pancreatic CT was recommended once acute infection was resolved. A KUB done this afternoon showed no evidence for bowel obstruction. Impression Acute pancreatitis Hypokalemia, resolved Pneumonia, with hypoxia Change severe to lactated Ringer's and increase rate Morphine added for additional pain management KUB ordered and completed today to exclude SBO Trend labs/markers Subjective Patient is still in considerable pain at mid-lower midline abdomen. Bilious emesis and mild purulent sputum this AM. Lack of appetite even w/ clear diet. Some tightness at chest. No fever or chills. Review of Systems Review of Systems: Constitutional: Denies fever, chills Cardiovascular: Denies chest pain, palpitations Respiratory: Denies shortness of breath Gastrointestinal: Denies vomiting, constipation, diarrhea. + abd pain. Genitourinary: Denies urinary symptoms including dysuria Musculoskeletal: Denies weakness Neurological: Denies headache, numbness, tingling, focal weakness Physical Exam Physical Exam: General: Grossly A&O. NAD. Cooperative. Appears uncomfortable from pain. HEENT: Atraumatic, normocephalic. Pulm: CTAB anteriorly. No respiratory distress. Cardiac: RRR, -mrg. No LE edema. Abdominal: Mild distension. Diffusely mild-moderately tender, most near epigastrium. Results & Data Results & Data ([facility]) Vital Signs (Past 12 Hours) Vital Signs Temp Pulse Pulse Resp BP BP Pulse Ox 06/06/20 07:15 36.7 C 65 18 152/98 H 95 06/06/20 03:01 36.4 C L 58 L 16 152/89 H 95 06/06/20 02:48 92 06/06/20 00:49 92 06/06/20 00:48 66 24 149/93 H 90 06/06/20 00:30 64 21 06/06/20 00:00 73 20 06/05/20 23:30 91 06/05/20 23:00 94 06/05/20 22:58 93 06/05/20 22:08 126/82 06/05/20 21:30 58 L 17 125/76 99 06/05/20 21:20 58 L 14 98 06/05/20 21:15 55 L 15 117/77 95 06/05/20 21:10 69 22 93 06/05/20 21:00 58 L 20 95 06/05/20 20:50 65 15 94 06/05/20 20:40 65 22 96 06/05/20 20:39 61 20 96 06/05/20 20:38 36.7 C 56 L 20 117/71 96 06/05/20 20:33 60 26 H 117/71 96 Resident Activity Tracking Resident Involvement: Resident Care Provided Care Provided: Adult Hospital Medicine (1) Acute pancreatitis Acute pancreatitis complication: unspecified Pancreatitis type: unspecified pancreatitis type Qualified Code(s): K85.90 - Acute pancreatitis without necrosis or infection, unspecified
--- NOTE | 2020-06-06 07:33 | Ultrasound Report ---
US gallbladder HISTORY: 50 years-old Male ro jose acute right upper quadrant abdominal pain COMPARISON: CTA chest of same day TECHNIQUE: Multiple real-time sonographic images of the abdominal right upper quadrant were obtained assessing grayscale appearance and color flow FINDINGS: The pancreas is mostly obscured by bowel gas. The liver appears unremarkable. The gallbladder wall me asures within the upper limits of normal at 3 mm. There is no shadowing cholelithiasis or pericholecy stic fluid. Common bile duct measures the upper limits of normal at 6 mm. Patient reports pain diffus miguelina throughout the abdomen. Imaged right kidney is unremarkable without hydronephrosis. IMPRESSION: 1. No cholelithiasis or definitive sonographic evidence of acute cholecystitis. 2. No biliary ductal dilation. ACT 112: Negative or not required by law. The above report was generated using voice recognition software. It may contain grammatical, syntax o r spelling errors. Electronically signed by: Wicho Haines M.D. 06/06/2020 7:31 AM
--- NOTE | 2020-06-06 07:47 | CT Scan Report ---
CT ANGIOGRAPHY OF THE CHEST, PULMONARY EMBOLUS PROTOCOL CLINICAL HISTORY: Shortness of breath. Evaluate for pulmonary embolus. COMPARISON STUDY: Chest radiograph June 05, 2020. TECHNIQUE: Following IV administration of 119 mL of Optiray-320, helical axial images of the chest we re obtained utilizing the pulmonary embolus protocol. Maximal intensity projections and sagittal and coronal reformats were viewed on an independent 3D workstation. IV contrast was administered withou t complication. Automated exposure control was utilized for the study. A dose lowering technique wa s utilized adhering to the principles of ALARA. CT DOSE: 481.20 mGy.cm FINDINGS: No pulmonary emboli are identified. There is no thoracic aortic dissection. The aortic jeana t is suboptimally assessed on this nongated exam but is dilated, measuring approximately 5 cm at the level of the sinuses of Valsalva. There is mild cardiomegaly. There is no pericardial effusion. No pn eumothorax or pleural effusion is noted. There is no thoracic lymphadenopathy. The central airways ar e patent. Note is made of moderate groundglass opacities within the lungs. There is a 6 mm right midd le lobe nodule on image 124 of 243 is noted. There is also a nodule along the right minor fissure marian t measures 5 mm. There is a possible additional 5 mm nodule within the apical segment of the right up per lobe on image 178. Bony thorax is unremarkable. There is a small hiatal hernia. There is probable small amount of fluid adjacent to the gallbladder. There is trace perisplenic fluid. IMPRESSION: 1. No pulmonary emboli identified. 2. Moderate ground glass opacities within the lungs. Atelectasis is favored although an infectious pr ocess could appear similar. 3. Dilated aortic root, suboptimally assessed on this nongated exam. Aortic root measures approximate ly 5 cm at the level of the sinuses of Valsalva. Nonemergent cardiology consultation is recommended. No thoracic aortic dissection. 4. Suspected small amount of fluid adjacent to the gallbladder, partially imaged on this examination. This could be correlated with right upper quadrant pain and can be assessed on MRCP which has been o rdered. Trace perisplenic fluid. 5. A few low suspicion pulmonary nodules measuring up to 6 mm. A follow-up chest CT in 6 months is re commended to ensure stability. ACT 112: Positive. There are findings on this exam that require communication between the performing entity and the patient following Patient Test Result Information Act ([place] Act 112) guidelines. Electronically signed by: Kumar Mccray M.D. 06/06/2020 7:45 AM
[2020-06-06 07:57] LABS: Chol HDL Ratio 4; Cholesterol 169 mg/dl (0-200); HDL Cholesterol 39 mg/dl; LDL Cholesterol Calculated 113 mg/dl; Triglycerides 84 mg/dl (0-150); VLDL Cholesterol 17 mg/dl
--- NOTE | 2020-06-06 08:53 | XRay Report ---
ORBIT RADIOGRAPHS 3 VIEWS HISTORY: pre-MRI screening. COMPARISON: None. FINDINGS: There are no radiopaque foreign bodies identified within the orbits. IMPRESSION: No radiopaque foreign bodies identified within the orbits. ACT 112: Negative or not required by law. Electronically signed by: Dilshad Miles M.D. 06/06/2020 8:52 AM
--- NOTE | 2020-06-06 09:49 | Magnetic Resonance Report ---
MR MRCP HISTORY: Mid abdominal pain. pancreatitis TECHNIQUE: MRCP of the abdomen was performed without contrast according to standard departmental prot ocol. COMPARISON STUDY: None. FINDINGS: There is mild motion artifact. The liver, spleen, adrenal glands, and kidneys are within no rmal limits. There is trace perihepatic and paraspinal ascites. There is edematous pancreas with mode rate peripancreatic fluid extending into the bilateral anterior pararenal spaces. Findings are consis tent with acute pancreatitis. The main portal vein appears patent. Bulbous appearance to the pancreat ic head which is diffusely heterogeneous. This is likely secondary to the acute pancreatitis. However , follow-up dedicated pancreatic CT is recommended once the patient's acute pancreatitis is resolved to exclude the possibility of underlying pancreatic mass. There are no gallstones identified. Near no ndiagnostic evaluation of the common bile duct given the motion artifact. However, the common bile du ct appears to be normal in caliber. Thickening at the second portion of the duodenum is likely reacti ve to the acute pancreatitis. Of note, the pancreas is not entirely included on this study. IMPRESSION: 1. Moderate peripancreatic fluid extending to the bilateral anterior perirenal spaces. The pancreas i s also heterogeneous and likely edematous consistent with acute pancreatitis. 2. Bulbous appearance to the pancreatic head which is diffusely heterogeneous. This is likely seconda ry to the acute pancreatitis. However, follow-up dedicated pancreatic CT is recommended once the travon ent's acute pancreatitis is resolved to exclude the possibility of underlying pancreatic mass. 3. Near nondiagnostic evaluation of the common bile duct given the motion artifact. However, the comm on bile duct appears to be normal in caliber. ACT 112: Positive. There are findings on this exam that require communication between the performing entity and the patient following Patient Test Result Information Act ([place] Act 112) guidelines. Electronically signed by: Dilshad Miles M.D. 06/06/2020 9:47 AM
[2020-06-06] MEDS: ONDANSETRON INJ 2 MG/ML 2 ML VIAL IV PRN ×2 (09:50→19:46)
[2020-06-06] MEDS: PIPERACILLIN/TAZOBACTAM 4.5 GM in DEXTROSE 5% 100 ML IV SCH ×2 (11:20→17:38)
[2020-06-06 11:40] LABS: Basophils # (auto) 0.01 K/uL (0-0.2); Basophils % (auto) 0.1 %; Eosinophils # (auto) 0.01 K/uL (0-0.5); Eosinophils % (auto) 0.1 %; Hematocrit (blood only) 46.7 % (42-52); Hemoglobin 16.2 g/dL (14.0-18.0); Immature Granulocytes # (auto) 0.04 K/uL (0.00-0.02); Immature Granulocytes % (auto) 0.3 %; Lymphocytes # (auto) 1.12 K/uL (1.2-3.4); Lymphocytes % (auto) 7.3 %; Mean Corpuscular Hemoglobin 30.5 pg (25-34); Mean Corpuscular Hgb Conc 34.7 g/dL (32-36); Mean Corpuscular Volume 87.9 fL (80-100); Mean Platelet Volume 10.3 fL (7.4-10.4); Monocytes # (auto) 0.58 K/uL (0.11-0.59); Monocytes % (auto) 3.8 %; Neutrophils % (auto) 88.4 %; Platelet Count 183 K/uL (130-400); RDW Coefficient of Variation 13.3 % (11.5-14.5); RDW Standard Deviation 43.1 fL (36.4-46.3); Red Blood Count 5.31 M/uL (4.7-6.1); White Blood Count 15.26 K/uL (4.8-10.8)
[2020-06-06 12:11] LABS: BUN Creatinine Ratio 15.4 (10-20); Creatinine Clr Calc Pharmacy 87.4 ml/min; Est GFR (African American) 83.2; Est GFR (Non-African American) 71.8; Potassium 4.4 mmol/L (3.5-5.1)
--- NOTE | 2020-06-06 12:55 | Electrocardiogram Report ---
Test Reason : Blood Pressure : / mmHG Vent. Rate : 056 BPM Atrial Rate : 056 BPM P-R Int : 178 ms QRS Dur : 096 ms QT Int : 436 ms P-R-T Axes : 030 -15 019 degrees QTc Int : 420 ms Sinus bradycardia with sinus arrhythmia Abnormal ECG Confirmed by Gus Tan ([id number]) on 06/06/2020 12:55:09 PM Referred By: REFERRED SELF Confirmed By:Beltran Tan
[2020-06-06] MEDS: LACTATED RINGER'S 1,000 ML IV SCH ×3 (12:58→21:41)
--- NOTE | 2020-06-06 16:17 | XRay Report ---
KUB HISTORY: Generalized abdominal pain. COMPARISON: Chest and abdominal series 06/05/2020. FINDINGS: The bowel gas pattern is unremarkable. There are no dilated loops of small bowel to suggest an obstruction. No renal calculi. No ureteral calculi. No pneumoperitoneum or pneumatosis. Bibasila r linear densities suggesting subsegmental atelectasis. IMPRESSION: No evidence for bowel obstruction. ACT 112: Negative or not required by law. Electronically signed by: Dilshad Miles M.D. 06/06/2020 4:15 PM
[2020-06-06 16:49] LABS: Albumin Level 3.7 gm/dl (3.4-5.0); Bilirubin,Total 0.9 mg/dl (0.2-1); Globulin 3.7 gm/dl (2.5-4.0); Total Protein 7.4 gm/dl (6.4-8.2)
[2020-06-06] MEDS: MoRPHine SULFATE 2 MG/ML CARP IV PRN ×2 (19:33→19:38)
[2020-06-06] MEDS: ENOXAPARIN INJ 40 MG/0.4 ML SYR SQ SCH (20:44)
[2020-06-07] MEDS: PIPERACILLIN/TAZOBACTAM 4.5 GM in DEXTROSE 5% 100 ML IV SCH ×4 (00:36→17:26)
[2020-06-07] MEDS: MoRPHine SULFATE 2 MG/ML CARP IV PRN (01:15)
[2020-06-07] MEDS: ONDANSETRON INJ 2 MG/ML 2 ML VIAL IV PRN ×2 (01:21→15:09)
[2020-06-07] MEDS: LACTATED RINGER'S 1,000 ML IV SCH ×6 (01:39→23:41)
[2020-06-07] MEDS: FAMOTIDINE 20 MG in SYRINGE 3 ML IV SCH ×2 (04:23→15:37)
[2020-06-07 06:06] LABS: Basophils # (auto) 0.01 K/uL (0-0.2); Eosinophils # (auto) 0.01 K/uL (0-0.5); Hematocrit (blood only) 43.7 % (42-52); Hemoglobin 15.2 g/dL (14.0-18.0); Immature Granulocytes # (auto) 0.07 K/uL (0.00-0.02); Immature Granulocytes % (auto) 0.3 %; Lymphocytes # (auto) 0.91 K/uL (1.2-3.4); Lymphocytes % (auto) 4.5 %; Mean Corpuscular Hemoglobin 30.7 pg (25-34); Mean Corpuscular Hgb Conc 34.8 g/dL (32-36); Mean Corpuscular Volume 88.3 fL (80-100); Mean Platelet Volume 10.4 fL (7.4-10.4); Monocytes # (auto) 1.44 K/uL (0.11-0.59); Monocytes % (auto) 7.1 %; Neutrophils # (auto) 17.82 K/uL (1.4-6.5); Neutrophils % (auto) 88.1 %; Platelet Count 175 K/uL (130-400); RDW Coefficient of Variation 13.3 % (11.5-14.5); RDW Standard Deviation 43.3 fL (36.4-46.3); Red Blood Count 4.95 M/uL (4.7-6.1); White Blood Count 20.26 K/uL (4.8-10.8)
--- NOTE | 2020-06-07 06:53 | Hospitalist Progress Note ---
Date of Service June 07, 2020 Assessment & Plan (1) Acute pancreatitis: 50 y/o male w/ no significant past medical hx who presents w/ pancreatitis. Stable. acute pancreatitis, confirmed by imaging - no etoh use, obesity, gallstones, or tobacco use. lipid panel wnl. - Lipase 58048->3751 - no acute findings on gallbladder US. MRCP consistent w/ acute pancreatitis. outpt imaging f/u because cannot r/o pancreatic head mass - pain control w/ prn dilaudid, morphine and tylenol - famotidine IV BID. zofran IV prn - continue LR 250 mL/hr - 06/07 consulted GI because of abdominal tenderness in context of bloating/distention. NG tube on low intermittent suction, 270 mL dark brown gastric output 2 hours after placement. - bloating may be secondary to pancreatitis. repeat KUB did not suggest bowel obstruction. hyperbilirubinemia - asymptomatic - GI consulted - no anemia. mrcp did not show bile ductal dilation. - will follow clinically pneumonia - bibailar densities on cxr. groundglass opacities on ct. imaging suggests pneumonia vs atelectasis. CTA neg for PE. - 06/07 cxr: Progressive bibasilar pulmonary opacities. + leukocytosis 15->20.26. afebrile - on empiric IV Zosyn - duonebs as needed - new O2 requirement this admission, satting low 90s on 2L nasal cannula - sputum culture ordered, but sample was contaminated. will defer reorder until after off NG suction. hypokalemia - 3.3 on 06/07. repleted dilated aortic root - outpt f/u pulm nodules, up to 6 mm - outpt f/u FEN/GI: NPO. 250 mL/hr LR. NG on low intermittent suction code: full ppx: lovenox sq 40mg daily. famotidine IV 20 q12 dispo: med/surg (2) Pneumonia: (3) Hypokalemia: (4) Hyperbilirubinemia: Admission and Anticipated Discharge Date Admission Date: June 06, 2020 Supervising Physician Co-Signing Physician Notes Attending Attestation I also saw the patient confirmed perez portions of the history and physical examination. Agree with the impression and plan as noted in the resident documentation. I also discussed the case with the gastroenterology team Per the patient, the abdominal pain is better than yesterday although he still complains of a considerable amount of bloating. He has not had a bowel movement. He is somewhat short of breath when walking although he believes this is mostly due to the operative pressure from his distended belly. Exam 142/86, 80, 16, 36.8, 90% via nasal cannula 2 L/min He is alert and oriented. He looks more comfortable than compared to yesterday Heart regular Respirations are nonlabored. He is able to speak in full sentences. Abdomen is distended, decreased bowel sounds, tympanic to percussion. Some generalized tenderness although this seems less than yesterday Laboratory White blood cell count 20.26, this is up from 15.26 yesterday. Hemoglobin 15.2. Sodium 138, potassium 3.3, BUN 10, creatinine 1.12. Lipase 2136, down from yesterday. Total bilirubin 2.0, up from 0.9 yesterday. Liver transaminases and alkaline phosphatase are normal. Imaging Chest x-ray done this morning shows progressive bibasilar pulmonary opacities with possibly small effusions. KUB done this afternoon shows a prominent small bowel loop within the left mid abdomen. There is no evidence of bowel obstruction. Gallbladder ultrasound was unremarkable. Common bile duct measured at 6 mm. A CTA of the chest was negative for pulmonary emboli. Also noted was moderate ground glass opacities, atelectasis favored; a dilated aortic root; a small amount of fluid adjacent to the gallbladder; a few low suspicion pulmonary nodules measuring up to 6 mm. MRCP demonstrated moderate peripancreatic fluid and edematous pancreas consistent with acute pancreatitis. Follow-up dedicated pancreatic CT was recommended once acute infection was resolved. A KUB done this afternoon showed no evidence for bowel obstruction. Impression Acute pancreatitis Pneumonia, with hypoxia Continue lactated Ringer's 250 cc/h Continue Zosyn for pneumonia Consult gastroenterology Given the patient's abdominal distention, discussed with him placement of NG tube for gastric decompression and comfort Labs and repeat chest x-ray in AM Subjective The patient's pain this morning was a 3-4 intensity. His abdomen is slightly more bloated. He is not passing flatus. Last BM was 2 days ago. Appetite is small, but he tolerated clear liquids. Review of Systems Review of Systems: Constitutional: Denies fever, chills Cardiovascular: Denies chest pain, palpitations Respiratory: Mild SOB that he attributes to his abdominal distention Gastrointestinal: + abdominal bloating and mild discomfort at rest Genitourinary: Denies urinary symptoms including dysuria Musculoskeletal: Denies weakness, muscle aches/pain, joint aches/pain Neurological: Denies headache, numbness, tingling, focal weakness Physical Exam Physical Exam: General: Grossly A&O. NAD. Cooperative. HEENT: Atraumatic, normocephalic. Pulm: CTAB anteriorly. No respiratory distress. Cardiac: RRR, -mrg. No LE edema. Abdominal: Mildly bloated/distended and is mildly diffusely tender to palpation. No rebound or guarding. Results & Data Results & Data ([facility]) Vital Signs (Past 12 Hours) Vital Signs Temp Pulse Resp BP Pulse Ox 06/06/20 21:46 37.0 C 71 18 136/80 93 Resident Activity Tracking Resident Involvement: Resident Care Provided Care Provided: Adult Hospital Medicine (1) Acute pancreatitis Acute pancreatitis complication: unspecified Pancreatitis type: unspecified pancreatitis type Qualified Code(s): K85.90 - Acute pancreatitis without necrosis or infection, unspecified
[2020-06-07 07:02] LABS: Albumin Globulin Ratio 0.9 (0.9-2); Albumin Level 3.1 gm/dl (3.4-5.0); BUN Creatinine Ratio 9.3 (10-20); Calcium 7.7 mg/dl (8.5-10.1); Creatinine Clr Calc Pharmacy 91.3 ml/min; Est GFR (African American) 87.7; Est GFR (Non-African American) 75.7; Globulin 3.4 gm/dl (2.5-4.0); Potassium 3.3 mmol/L (3.5-5.1); Total Protein 6.5 gm/dl (6.4-8.2)
[2020-06-07] MEDS ORDERED: ENOXAPARIN INJ 40 MG/0.4 ML SYR SQ SCH (09:00)
--- NOTE | 2020-06-07 13:08 | XRay Report ---
XR chest 1V portable CLINICAL HISTORY: pneumonia COMPARISON STUDY: 06/05/2020 FINDINGS: The heart is borderline enlarged. There are progressive bibasilar pulmonary opacities. Smal l pleural effusions cannot be excluded. There is no overt failure[ IMPRESSION: Progressive bibasilar pulmonary opacities. Possible small effusions. ACT 112: Negative or not required by law. Electronically signed by: Hammad Ley M.D. 06/07/2020 1:07 PM
--- NOTE | 2020-06-07 13:26 | XRay Report ---
KUB CLINICAL HISTORY: Abdominal distention. COMPARISON STUDY: KUB June 06, 2020. FINDINGS: A prominent small bowel loop within left mid abdomen is noted. There is no evidence for a b owel obstruction. Pelvic calcifications likely reflect phleboliths. Although sensitivity is diminishe d on this supine exam, there is no evidence for free air. No pneumatosis is identified. IMPRESSION: No evidence for a bowel obstruction. ACT 112: Negative or not required by law. Electronically signed by: Kumar Mccray M.D. 06/07/2020 1:25 PM
--- NOTE | 2020-06-07 14:06 | Gastrointestinal Consultation ---
Date of Consultation June 07, 2020 Assessment & Plan (1) Acute pancreatitis: (2) Abdominal distension: Acute pancreatitis: Patient presented to the ED with abdominal pain, nausea, vomiting and back pain 06/06/2020. Lipase elevated at 27,643 with WBC 15.47. Lipase trending down - now 2136. WBC trending up - now 20.26. LFTs were within normal limits on admission, total bilirubin today is 2.0. MRCP demonstrated acute pancreatitis, no gallstones identified. Near nondiagnostic evaluation of the common bile duct given the motion artifact. However, the common bile duct appears to be normal in caliber. Radiology recommended repeat imaging after acute inflammation resolved to better visualize pancreas to r/o underlying mass. Patient was started on Zosyn 4.5 gm IV q 6 hours on admission now with rising WBC count, will continue antibiotic and monitor. Daily labs CBCD, CMP, Lipase. Start IVF - LR @ 250 ml/hour. Continue supportive care measures. Abdominal distension: Patient with complaints of increasing abdominal distension. Hypoactive bowel sounds and now with generalized abdominal pain. KUB today demonstrated prominent small bowel loops within the left mid abdomen with no evidence for bowel obstruction. Would hold clear liquids and maintain NPO except medications. Spoke to Dr. Dumont regarding placement of NGT for decompression. Would recommend NGT insertion if patient is agreeable. Obtain KUB tomorrow morning. Case reviewed with Dr. Giron. Please refer to supervising physician addendum for further recommendations. Supervising Physician Co-Signing Physician Notes Attending Attestation I also saw the patient confirmed perez portions of the history and physical examination. Agree with the impression and plan as noted in the resident documentation. I also discussed the case with the gastroenterology team Per the patient, the abdominal pain is better than yesterday although he still complains of a considerable amount of bloating. He has not had a bowel movement. He is somewhat short of breath when walking although he believes this is mostly due to the operative pressure from his distended belly. Exam 142/86, 80, 16, 36.8, 90% via nasal cannula 2 L/min He is alert and oriented. He looks more comfortable than compared to yesterday Heart regular Respirations are nonlabored. He is able to speak in full sentences. Abdomen is distended, decreased bowel sounds, tympanic to percussion. Some generalized tenderness although this seems less than yesterday Laboratory White blood cell count 20.26, this is up from 15.26 yesterday. Hemoglobin 15.2. Sodium 138, potassium 3.3, BUN 10, creatinine 1.12. Lipase 2136, down from yesterday. Total bilirubin 2.0, up from 0.9 yesterday. Liver transaminases and alkaline phosphatase are normal. Imaging Chest x-ray done this morning shows progressive bibasilar pulmonary opacities with possibly small effusions. KUB done this afternoon shows a prominent small bowel loop within the left mid abdomen. There is no evidence of bowel obstruction. Gallbladder ultrasound was unremarkable. Common bile duct measured at 6 mm. A CTA of the chest was negative for pulmonary emboli. Also noted was moderate ground glass opacities, atelectasis favored; a dilated aortic root; a small amount of fluid adjacent to the gallbladder; a few low suspicion pulmonary nodules measuring up to 6 mm. MRCP demonstrated moderate peripancreatic fluid and edematous pancreas consistent with acute pancreatitis. Follow-up dedicated pancreatic CT was recommended once acute infection was resolved. A KUB done this afternoon showed no evidence for bowel obstruction. Impression Acute pancreatitis Pneumonia, with hypoxia Continue lactated Ringer's 250 cc/h Continue Zosyn for pneumonia Consult gastroenterology Given the patient's abdominal distention, discussed with him placement of NG tube for gastric decompression and comfort Labs and repeat chest x-ray in AM I have seen and examined the patient. I agree with note above by HANS Hernandez except as noted below. HPI Pt with abd pain and pancreatitsi. Pain somewhat better today but significant abd distension and elevated WBC. PE Abdomen pos bs, soft, moderate distension, NO guarding nor rebound A/P pancreatitis---NPO and adequate IVF in form of LR to perfuse pancreas following general guideline of watching urine output 0.5 ml/kg/hour. Etiology not clear with no stones, normal calcium, no ETOH, and normal triglycerides. NO obvious reason on MRCP although motion artifact degrades the interpretation of bile duct pathology. After resolution recommend EUS to look for underlying pancreas lesion as causative agent. IF zosyn for pneumonia then continue. Otherwise, prophylactic abx for pancreatitis is controversial. abdominal distension--- agree with NG and put on low, intermittent suction. if this does not help would repeat CT in am to see if he is massively third spacing fluid from pancreaitis causing this. If massively third spaces will have to watch for abdominal compartment syndrome and be careful with fluids. History of Present Illness Attending Physician: Donnie Dumont DO History of Present Illness The patient is a 50-year-old male with no significant past medical history that presented to the emergency department 06/06/2020 due to abrupt onset of epigastric pain, nausea, vomiting, back pain. Laboratory testing consistent with acute pancreatitis and he was admitted for further evaluation. The GI service was consulted today due to acute pancreatitis, elevated total bilirubin, and abdominal bloating. On exam/interview today, the patient reports that Thursday night he began having epigastric abdominal pain and pain in his chest with nausea and vomiting. He presented to the emergency department due to severity of symptoms. He reports now that his abdominal pain is generalized. It is worse in the epigastric region. Denies any nausea except when taking pain medications. Denies further vomiting. Denies any melena or hematochezia. He reports that he has not had much of an appetite and is poorly tolerating clear fluids diet. He has not had any fevers. He has been unable to move his bowels since prior to admission. He feels extremely bloated abdominally. He has been up and walking the floor per his and the nursing report. The patient is a lifetime non-smoker. He denies any alcohol intake. Denies use of recreational drugs including marijuana. 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 He is and has a total of 8 children, four of these children are still at home. Allergies Allergy/AdvReac Type Severity Reaction Status Date / Time No Known Allergies Allergy Verified 06/05/20 21:06 Home Medications Medication Instructions Recorded Confirmed Type No Known Home Medications 06/05/20 06/05/20 History Patient History Medical History (Updated 06/07/20 @ 14:11 by HANS Sanchez) No pertinent family history No pertinent past medical history Surgical History (Updated 06/06/20 @ 02:13 by Vick Boswell) No pertinent past surgical history Social History Smoking Status: Never smoker Hx Alcohol Use: No Hx Substance Use: No Preferred Language: Hungarian Communication Ability: Effective Spare [employer] Clerk Required: No Current Living Situation: Spouse Feels Safe at Home: Yes Assistive Devices: Glasses Review of Systems Review of Systems: All systems reviewed & are unremarkable except as noted in Subjective Physical Exam Constitutional: well developed and well nourished; no acute distress Eyes: EOM intact bilaterally ENMT: Ears: no hearing impairment Neck: normal visual inspection and trachea midline Respiratory: normal respiratory effort, lungs clear to auscultation Cardiovascular: RRR, no murmur, no edema Gastrointestinal (Abdomen): Inspection/Auscultation: abdomen normal to inspection, + abdomen distended and + hypoactive bowel sounds Percussion/Palpation: + abdomen tender (generalized tenderness with mild palpation worse epigastric area) and + tympanic to percussion; abdomen not rigid Musculoskeletal: Extremities: extremities normal to inspection Skin: no rashes, warm and dry Neurologic: PERRL, EOMI, accommodation nl, no face palsy, no dysarthria Psychiatric: A+Ox3, euthymic affect Results & Data ([facility]) Vital Signs (Past 12 Hours) Vital Signs Temp Pulse Resp BP Pulse Ox 06/07/20 07:19 36.8 C 74 16 141/81 H 94 Laboratory Results - last 24 hr 06/06/20 06/07/20 06/07/20 11:02 05:35 05:35 WBC 20.26 H RBC 4.95 Hgb 15.2 Hct 43.7 MCV 88.3 MCH 30.7 MCHC 34.8 RDW Std Deviation 43.3 RDW Coeff of Brittany 13.3 Plt Count 175 MPV 10.4 Immature Gran % (Auto) 0.3 Neut % (Auto) 88.1 Lymph % (Auto) 4.5 Briscoe % (Auto) 7.1 Eos % (Auto) 0.0 Baso % (Auto) 0.0 Neut # (Auto) 17.82 H Lymph # (Auto) 0.91 L Briscoe # (Auto) 1.44 H Eos # (Auto) 0.01 Baso # (Auto) 0.01 Immature Gran # (Auto) 0.07 H Sodium 141 138 Potassium 4.4 D 3.3 L D Chloride 112 H 105 Carbon Dioxide 26 28 Anion Gap 3.0 5.0 BUN 18 10 D Creatinine 1.17 1.12 Est Cr Clr Drug Dosing 87.4 91.3 Est GFR ( Amer) 83.2 87.7 Est GFR (Non-Af Amer) 71.8 75.7 BUN/Creatinine Ratio 15.4 9.3 L Glucose 160 H 128 H Calcium 8.0 L 7.7 L Total Bilirubin 0.9 2.0 H D AST 29 33 ALT 23 18 Alkaline Phosphatase 50 46 Total Protein 7.4 6.5 Albumin 3.7 3.1 L Globulin 3.7 3.4 Albumin/Globulin Ratio 1.0 0.9 Lipase 2136 H 06/07/2020: KUB today obtained for abdominal distention demonstrated prominent small bowel loops within the left mid abdomen with no evidence for bowel obstruction. 06/06/2020: MRCP demonstrated mild motion artifact. The liver, spleen, adrenal glands, and kidneys are within normal limits. There is trace perihepatic and paraspinal ascites. There is edematous pancreas with moderate peripancreatic fluid extending into the bilateral anterior pararenal spaces. Findings are consistent with acute pancreatitis. The main portal vein appears patent. Bulbous appearance to the pancreatic head which is diffusely heterogeneous. This is likely secondary to the acute pancreatitis. However, follow-up dedicated pancreatic CT is recommended once the patient's acute pancreatitis is resolved to exclude the possibility of underlying pancreatic mass. There are no gallstones identified. Near nondiagnostic evaluation of the common bile duct given the motion artifact. However, the common bile duct appears to be normal in caliber. Thickening at the second portion of the duodenum is likely reactive to the acute pancreatitis. Of note, the pancreas is not entirely included on this study. (1) Acute pancreatitis Acute pancreatitis complication: unspecified Pancreatitis type: unspecified pancreatitis type Qualified Code(s): K85.90 - Acute pancreatitis without necrosis or infection, unspecified
[2020-06-07] MEDS ORDERED: CHLORASEPTIC 1.4% SOLN 180 ML BTL MT PRN (19:22)
[2020-06-07] MEDS: ENOXAPARIN INJ 40 MG/0.4 ML SYR SQ SCH (19:45)
[2020-06-07] MEDS: POTASSIUM CHLORIDE / WTR 10 MEQ/100 ML PLCT IV SCH ×4 (20:03→23:39)
[2020-06-08] MEDS: PIPERACILLIN/TAZOBACTAM 4.5 GM in DEXTROSE 5% 100 ML IV SCH ×3 (00:53→12:02)
--- NOTE | 2020-06-08 01:18 | Communication Note ---
Date of Service: June 08, 2020 Called by bedside nursing staff earlier in the evening for patient's expressed concern of discomfort surrounding the NG tube. Chloraseptic [place] provided. Later in the evening patient reported that this discomfort became too much, and he removed the NG tube on his own without notifying nursing staff or this provider (this was done between 2220 and 2300). For several hours patient did not have any complications or increasing abdominal distention/tenderness following NG removal. At 0100 recalled by nursing staff, as patient having new onset crackles in bilateral lower lobes. Ordered KUB, CXR for evaluation of fluid status and abdominal distention given earlier removal of NG tube. On my presentation to bedside patient with nonlabored breathing, crackles to bilateral lower lobes, with poor inspiratory effort; tender abdomen with tympany and some mild distention. CXR demonstrating interval progression of bibasilar opacities, KUB demonstrating maintained gaseous distention of intestines. Discussed these findings with patient, and subsequently ordered Lasix and replacement of NG tube to low intermittent suction. Resident Activity Tracking Resident Involvement: Resident Care Provided and [employer] Operator Coverage Note Care Provided: Adult Hospital Medicine
[2020-06-08] MEDS ORDERED: FUROSEMIDE 80 MG in SYRINGE 0 ML IV ONE (02:30)
[2020-06-08] MEDS: FAMOTIDINE 20 MG in SYRINGE 3 ML IV SCH ×2 (03:27→16:23)
[2020-06-08] MEDS: LACTATED RINGER'S 1,000 ML IV SCH ×2 (05:06→16:24)
[2020-06-08 06:23] LABS: Basophils # (auto) 0.01 K/uL (0-0.2); Basophils % (auto) 0.1 %; Eosinophils # (auto) 0.02 K/uL (0-0.5); Eosinophils % (auto) 0.1 %; Hematocrit (blood only) 41.5 % (42-52); Hemoglobin 14.5 g/dL (14.0-18.0); Immature Granulocytes # (auto) 0.05 K/uL (0.00-0.02); Immature Granulocytes % (auto) 0.3 %; Lymphocytes # (auto) 0.68 K/uL (1.2-3.4); Lymphocytes % (auto) 3.6 %; Mean Corpuscular Hemoglobin 30.6 pg (25-34); Mean Corpuscular Hgb Conc 34.9 g/dL (32-36); Mean Corpuscular Volume 87.6 fL (80-100); Mean Platelet Volume 10.5 fL (7.4-10.4); Monocytes # (auto) 1.13 K/uL (0.11-0.59); Neutrophils % (auto) 89.9 %; Platelet Count 145 K/uL (130-400); RDW Coefficient of Variation 13.1 % (11.5-14.5); RDW Standard Deviation 42.1 fL (36.4-46.3); Red Blood Count 4.74 M/uL (4.7-6.1); White Blood Count 18.99 K/uL (4.8-10.8)
[2020-06-08 06:56] LABS: Albumin Level 2.9 gm/dl (3.4-5.0); BUN Creatinine Ratio 14.8 (10-20); Calcium 8.2 mg/dl (8.5-10.1); Creatinine Clr Calc Pharmacy 111.1 ml/min; Est GFR (African American) 111.2; Potassium 2.9 mmol/L (3.5-5.1)
[2020-06-08 06:59] LABS: Albumin Globulin Ratio 0.7 (0.9-2); Bilirubin,Total 2.1 mg/dl (0.2-1); Globulin 3.9 gm/dl (2.5-4.0); Total Protein 6.8 gm/dl (6.4-8.2)
--- NOTE | 2020-06-08 07:20 | Hospitalist Progress Note ---
Date of Service June 08, 2020 Assessment & Plan (1) Acute pancreatitis: 50 y/o male w/ no significant past medical hx who presents w/ pancreatitis. Stable. acute pancreatitis, confirmed by imaging - no etoh use, obesity, gallstones, or tobacco use. lipid panel wnl. - Lipase 37604->3751->489 - no acute findings on gallbladder US. MRCP consistent w/ acute pancreatitis. outpt imaging f/u because cannot r/o pancreatic head mass - pain control w/ prn morphine and tylenol - famotidine IV BID. zofran IV prn - continue LR 250 mL/hr - 06/07 consulted GI because of abdominal tenderness in context of bloating/distention. NG tube on low intermittent suction, 270 mL dark brown gastric output 2 hours after placement. - bloating may be secondary to pancreatitis. repeat KUB did not suggest bowel obstruction. - 06/08 CT abd/pelv ordered because patient having symptoms in AM despite night of NG suction. Result showed peripancreatic fat infiltration consistent w/ acute pancreatitis. No free air or evidence of bowel obstruction. - removed NG tube at 1830 after reexamination of abdomen did not suggest worsened distention since AM. total 24 hr NG output was 900cc. restarted clear liquid diet. will encourage ambulation. LR is at 75/hr. Additional IV fluids also from antibiotics and k riders. hyperbilirubinemia - asymptomatic. 0.9->2.0->2.1 - 06/08 also has mild ast elevation to 51 - GI consulted - no anemia. mrcp did not show bile ductal dilation. - will follow clinically pneumonia - bibailar densities on cxr. groundglass opacities on ct. imaging suggests pneumonia vs atelectasis. CTA neg for PE. - 06/07 cxr: Progressive bibasilar pulmonary opacities. - 06/08 cxr: Slight progression in the bibasilar pulmonary opacities. No overt failure + leukocytosis 15->20.26->18.99. afebrile - 06/08: empiric Zosyn switched to IV ceftriaxone 1g daily and IV azithromycin 500mg daily - duonebs as needed - ordered incentive spirometry - new O2 requirement this admission, satting low 90s on 2L nasal cannula - sputum culture ordered, but sample was contaminated. reordered hypokalemia - 2.9 on 06/08. repleting. 4 bags of 10 meq k rider and 20 meq PO power ordered dilated aortic root - outpt f/u pulm nodules, up to 6 mm - outpt f/u FEN/GI: Clear liquid diet. 75 mL/hr LR. code: full ppx: lovenox sq 40mg daily. famotidine IV 20 q12 dispo: med/surg (2) Pneumonia: (3) Hypokalemia: (4) Hyperbilirubinemia: (5) Pulmonary nodule: (6) Dilated aortic root: Admission and Anticipated Discharge Date Admission Date: June 06, 2020 Supervising Physician Co-Signing Physician Notes Patient seen and examined with PGY-1 Dr. Hernandez. Agree with history, exam findings, assessment and plan as outlined. In brief, Mr. Fung is a 50 year old healthy male admitted with acute pancreatitis of unclear etiology. Pulled out NGT last night, but it was replaced. Feels that the abdomen is less distended. Denies nausea, vomiting. Has not had a bowel movement since Thursday. Vital signs and nursing notes reviewed. Ill appearing. Abdomen is quiet. Midly distended, but soft. Tender in the epigastric area. 1. Pancreatitis. Unclear etiology. Improving. Will need outpatient EUS to rule out pancreatic head mass. CT Abd/Pelvis today consistent with acute pancreatitis. Noted small bibasilar effusions. Pain control with dilaudid, morphine, Tylenol. Decreased IVFs today. Fairly insistent about having NGT removed. Did ok with several hours of NGT clamped. Ok to continue with sips and chips. Appreciate GI recommendations. 2. Hyperbili. Stable. Possibly secondary to pancreatic process. 3. Acute hypoxic respiratory failure. New O2 requirement this admission. 2L. Wean as able. 4. Pneumonia. CXR with bibasilar densities and follow up CT with ground glass opacities. Repeat CXR on 06/07 with worsening opacities. Switched to ceftriaxone and azithromycin to cover for community acquired pneumonia. 5. Pulm edema/effusion. Received Lasix. 6. Hypokalemia. Likely secondary from Lasix and decreased PO intake. Repleting potassium. Will also check Mg level in the AM. 7. Pulm nodules. Outpatient follow up imaging. Dispo: pending clinical improvement. Subjective Overnight events: patient self-removed NG tube. NG tube was reinserted after discussion/explanation. Mild dyspnea and crackles on lung exam, so lasix 40 mg IV was given, w/ symptom improvement. This morning, patient stated that he was still uncomfortable at abdomen felt about the same. His breathing felt better though. At PM rounds, patient's stated that compared to yesterday, the patient's abdomen is noticeably less bloated. NG clamped afterwards. Per nursing, patient woke up from nap w/ nausea and mild bilious emesis. Review of Systems Review of Systems: Constitutional: Denies fever, chills Eyes: Denies blurry vision Cardiovascular: Denies chest pain, palpitations Respiratory: See HPI Gastrointestinal: See HPI Genitourinary: Denies dysuria Musculoskeletal: Denies weakness, muscle aches/pain Neurological: Denies headache, numbness, tingling Physical Exam Physical Exam: General: Grossly A&O. NAD. Cooperative. HEENT: Atraumatic, normocephalic. Pulm: No wheezes. Quieter at bases. Mild crackles at middle lung [place] on PM exam. Cardiac: RRR, -mrg. Radial pulses intact and symmetrical. No LE edema. Abdominal: Mild diffuse TTP, worse at periumbiical and epigastric areas. No rebound or guarding. Slight bloating. Results & Data Results & Data ([facility]) Vital Signs (Past 12 Hours) Vital Signs Temp Pulse Resp BP Pulse Ox 06/08/20 07:12 36.7 C 86 18 122/82 93 06/07/20 22:17 36.8 C 77 18 137/84 93 Diagnostic Findings 06/08 ct abd/pelv w/o contrast 1. Infiltration of peripancreatic fat, trace perihepatic and perisplenic fluid, and minimal retroperitoneal fluid. The findings are consistent with acute pancreatitis 2. Bilateral pleural effusions with associated basilar parenchymal opacities statistically atelectatic 3. Mild splenomegaly 4. Gastric antral and duodenal wall thickening likely secondary to acute pancreatitis. 5. No evidence of bowel obstruction. No evidence of free air 6. Low volume ascites Resident Activity Tracking Resident Involvement: Resident Care Provided Care Provided: Adult [facility] Medicine (1) Acute pancreatitis Acute pancreatitis complication: unspecified Pancreatitis type: unspecified pancreatitis type Qualified Code(s): K85.90 - Acute pancreatitis without necrosis or infection, unspecified
--- NOTE | 2020-06-08 07:40 | XRay Report ---
XR chest 1V portable CLINICAL HISTORY: new onset crackles COMPARISON STUDY: 06/07/2020 FINDINGS: The cardiac and mediastinal contours remain stable. There is slight progression in the biba silar pulmonary opacities.. There is no overt failure. Small pleural effusions must be considered.[ IMPRESSION: Slight progression in the bibasilar pulmonary opacities. ACT 112: Negative or not required by law. Electronically signed by: Hammad Ley M.D. 06/08/2020 7:39 AM
--- NOTE | 2020-06-08 07:59 | XRay Report ---
XR KUB/Abdomen 1 view CLINICAL HISTORY: NG placement COMPARISON STUDY: 06/08/2020 FINDINGS: There are bibasilar pulmonary airspace opacities. There is a enteric tube positioned within the stomach. IMPRESSION: The recently placed enteric tube is positioned within the stomach. ACT 112: Negative or not required by law. Electronically signed by: Hammad Ley M.D. 06/08/2020 7:57 AM
--- NOTE | 2020-06-08 08:01 | XRay Report ---
XR KUB/Abdomen 1 view CLINICAL HISTORY: abdominal distension COMPARISON STUDY: 06/07/2020 FINDINGS: There is an enteric tube within the stomach. There is mild gaseous prominence of the colon to the level of the splenic flexure. There is no conventional radiographic evidence of high-grade bow el obstruction IMPRESSION: 1. Enteric tube the stomach 2. Mild gaseous prominence of the colon. No conventional radiographic evidence of a high-grade bowel obstruction ACT 112: Negative or not required by law. Electronically signed by: Hammad Ley M.D. 06/08/2020 8:00 AM
--- NOTE | 2020-06-08 08:24 | Gastroenterology Progress Note ---
Date of Service June 08, 2020 Assessment & Plan (1) Abdominal distension: (2) Acute pancreatitis: Acute pancreatitis: Lipase continues to trending down - now 489. WBC elevated - now 18.99. LFTs within normal limits, total bilirubin today is 2.1. Daily labs CBCD, CMP, Lipase. Continue IVF. Continue supportive care measures. Abdominal distension: Patient with complaints of continued abdominal distension. Hypoactive bowel sounds with generalized abdominal pain. KUB today demonstrat ed no conventional radiographic evidence of high-grade bowel obstruction. Maintain NPO except medications. Continue NGT for decompression. Obtain CT A/P without contrast. Case reviewed with Dr. Giron this morning. Dr. Mccabe will be rounding this afternoon. We will continue to closely monitor patient. Please refer to supervising physician addendum for further recommendations. Admission and Anticipated Discharge Date Admission Date: June 06, 2020 Subjective Patient lying in bed awake this morning. Continues to complain of abdominal bloating and distension. Abdominal pain is improved. Denies abdominal pain at rest. Reports pain 3-4/10 with epigastric and bilateral lower abdominal palpation. NGT to LIS, tolerating at this time. Reports increased nausea with the NGT. Drainage from NGT overnight was about 250-275ml. States he is not passing flatus. Has not had a bowel movement since prior to admission. 2L O2 via nasal cannula. Review of Systems Review of Systems: All systems reviewed & are unremarkable except as noted in Subjective Physical Exam Constitutional: well developed, well nourished and + ill appearing (acutely) Eyes: EOM intact bilaterally ENMT: Ears: no hearing impairment Neck: normal visual inspection and trachea midline Respiratory: normal respiratory effort; no respiratory distress and no labored breathing Cardiovascular: RRR, no murmur, no edema Gastrointestinal (Abdomen): Inspection/Auscultation: abdomen normal to inspection, + abdomen distended and + hypoactive bowel sounds Percussion/Palpation: + abdomen tender (generalized tenderness with light palpation worse epigastric area) and + tympanic to percussion; abdomen not rigid Musculoskeletal: Extremities: extremities normal to inspection Skin: no rashes, warm and dry Neurologic: PERRL, EOMI, accommodation nl, no face palsy, no dysarthria Psychiatric: A+Ox3, euthymic affect Results & Data ([facility]) Vital Signs (Past 12 Hours) Vital Signs Temp Pulse Resp BP Pulse Ox 03/26/21 07:12 36.7 C 86 18 122/82 93 06/07/20 22:17 36.8 C 77 18 137/84 93 Laboratory Results - last 24 hr 06/08/20 06/08/20 05:35 05:35 WBC 18.99 H RBC 4.74 Hgb 14.5 Hct 41.5 L MCV 87.6 MCH 30.6 MCHC 34.9 RDW Std Deviation 42.1 RDW Coeff of Brittany 13.1 Plt Count 145 MPV 10.5 H Immature Gran % (Auto) 0.3 Neut % (Auto) 89.9 Lymph % (Auto) 3.6 [place] % (Auto) 6.0 Eos % (Auto) 0.1 Baso % (Auto) 0.1 Neut # (Auto) 17.10 H Lymph # (Auto) 0.68 L [place] # (Auto) 1.13 H Eos # (Auto) 0.02 Baso # (Auto) 0.01 Immature Gran # (Auto) 0.05 H Sodium 135 L Potassium 2.9 L Chloride 100 Carbon Dioxide 31 Anion Gap 4.0 BUN 14 Creatinine 0.92 Est Cr Clr Drug Dosing 111.1 Est GFR ( Amer) 111.2 Est GFR (Non-Af Amer) 96.0 BUN/Creatinine Ratio 14.8 Glucose 134 H Calcium 8.2 L Total Bilirubin 2.1 H AST 51 H ALT 22 Alkaline Phosphatase 57 Total Protein 6.8 Albumin 2.9 L Globulin 3.9 Albumin/Globulin Ratio 0.7 L Lipase 489 H 06/08/2020: KUB demonstrated an enteric tube within the stomach. There is mild gaseous prominence of the colon to the level of the splenic flexure. There is no conventional radiographic evidence of high-grade bowel obstruction (1) Acute pancreatitis Acute pancreatitis complication: unspecified Pancreatitis type: unspecified pancreatitis type Qualified Code(s): K85.90 - Acute pancreatitis without necrosis or infection, unspecified
--- NOTE | 2020-06-08 08:24 | XRay Report ---
KUB CLINICAL HISTORY: NG placement COMPARISON STUDY: KUB June 07, 2020. FINDINGS: No nasogastric tube is identified on this examination. Bibasilar opacities and bilateral pl eural effusions are better depicted on the chest radiograph. There is no evidence for a bowel obstruc tion. Moderate amount stool within the right colon is noted. There is mild dilatation of the ascendin g colon. Pelvic calcifications reflect phleboliths. IMPRESSION: 1. Mild dilatation of the ascending colon without radiographic evidence for a bowel obstruction. 2. Bibasilar opacities and bilateral pleural effusions better depicted on the chest radiograph. ACT 112: Negative or not required by law. Electronically signed by: Kumar Mccray M.D. 06/08/2020 8:23 AM
--- NOTE | 2020-06-08 09:35 | CT Scan Report ---
CT SCAN OF THE ABDOMEN AND PELVIS WITHOUT CONTRAST CLINICAL HISTORY: Abdominal distention and pancreatitis. COMPARISON STUDY: MRCP dated 06/06/2020 TECHNIQUE: CT scan of the abdomen and pelvis was performed from the lung bases to the proximal femurs . Images are reviewed in the axial, sagittal, and coronal planes. IV contrast was not administered fo r this examination. A dose lowering technique was utilized adhering to the principles of ALARA. CT DOSE: 735.51 mGy.cm FINDINGS: Lower chest: There are bilateral pleural effusions with associated bibasilar parenchymal opacities st atistically atelectatic. There is elevation of the right hemidiaphragm Liver: There is a 1 cm left hepatic lobe hypodensity possibly likely representing a cyst. Gallbladder: Increased density with mild distention. No discrete calculi identified Spleen: Mildly enlarged measuring 13 cm Pancreas: There is peripancreatic edema, consistent with acute pancreatitis. Adrenal glands: Unremarkable. Kidneys: No renal calculi are visualized. There is no hydronephrosis. Bowel: There are no transition zones to indicate bowel obstruction. There is no evidence of acute div erticulitis. There are no findings to indicate acute appendicitis. There is gastric antral and duoden al wall thickening, likely secondary to acute pancreatitis. There is an enteric tube positioned withi n the stomach. Peritoneum: There is no free intraperitoneal air. There is minimal retroperitoneal fluid likely secon mikala to pancreatitis. There is trace perihepatic and perisplenic fluid. There is a fat-containing umb ilical hernia. There is a small amount of pelvic ascites. Vasculature: The abdominal aorta is normal in course and caliber. Adenopathy: None. There are no abnormal pelvic masses. Skeletal structures: No destructive osseous lesions are seen. Examination limited due by the lack of intravenous and oral contrast. IMPRESSION: 1. Infiltration of peripancreatic fat, trace perihepatic and perisplenic fluid, and minimal retroperi toneal fluid. The findings are consistent with acute pancreatitis 2. Bilateral pleural effusions with associated basilar parenchymal opacities statistically atelectati c 3. Mild splenomegaly 4. Gastric antral and duodenal wall thickening likely secondary to acute pancreatitis. 5. No evidence of bowel obstruction. No evidence of free air 6. Low volume ascites ACT 112: Negative or not required by law. Electronically signed by: Hammad Ley M.D. 06/08/2020 9:33 AM
[2020-06-08] MEDS ORDERED: SOD PHOSPHATE/SOD BIPHOSPHATE ENEMA 132 ML BTL PR STA (14:44)
--- NOTE | 2020-06-08 15:25 | Progress Notes ---
DATE: 06/08/2020 Addition to Telma Roche's note today: I reviewed the chart and labs and examined the patient and discussed the case with him. The patient has acute pancreatitis of unclear etiology. His CAT scan today demonstrates diffuse inflammation of the pancreas with bilateral pleural effusions. His abdomen is distended, but they are going to try to clamp it today. In addition to that, I recommended a glycerin suppository to try to get his stools moving and once he is able to eat, we can advance him to clear liquids, but he is not ready for that at this time. I also strongly encouraged the use of his incentive spirometer at his bedside. Dr. Giron will be covering this weekend.
[2020-06-08] MEDS: POTASSIUM CHLORIDE / WTR 10 MEQ/100 ML PLCT IV SCH ×4 (17:12→21:05)
[2020-06-08] MEDS: cefTRIAXone SODIUM 2,000 MG in DEXTROSE 5% 50 ML IV SCH (17:33)
[2020-06-08] MEDS ORDERED: cefTRIAXone SODIUM 1,000 MG in DEXTROSE 5% 50 ML IV SCH (18:00)
[2020-06-08] MEDS: AZITHROMYCIN 500 MG in DEXTROSE 5% 250 ML IV SCH (18:08)
[2020-06-08] MEDS ORDERED: FUROSEMIDE 40 MG in SYRINGE 0 ML IV ONE (19:00)
[2020-06-08] MEDS ORDERED: POTASSIUM CHLORIDE PWD 20 MEQ PACK PO ONE (19:00)
[2020-06-08] MEDS: ENOXAPARIN INJ 40 MG/0.4 ML SYR SQ SCH (21:06)
[2020-06-09] MEDS: FAMOTIDINE 20 MG in SYRINGE 3 ML IV SCH ×2 (05:23→17:21)
[2020-06-09] MEDS: LACTATED RINGER'S 1,000 ML IV SCH ×2 (05:23→17:21)
--- NOTE | 2020-06-09 07:08 | Hospitalist Progress Note ---
Date of Service June 09, 2020 Assessment & Plan (1) Acute pancreatitis: 50 y/o male w/ no significant past medical hx who presented w/ pancreatitis w/ persistent bloating symptoms this admission. Stable. acute pancreatitis, confirmed by imaging - no etoh use, obesity, gallstones, or tobacco use. lipid panel wnl. - Lipase [id number]->489->154 - no acute findings on gallbladder US. MRCP consistent w/ acute pancreatitis. outpt imaging f/u because cannot r/o pancreatic head mass - pain control w/ prn morphine and tylenol - famotidine IV BID. zofran IV prn - LR was 125/hr at admission ->250/hr->75/hr after concerns of fluid overload - 06/07 consulted GI because of abdominal tenderness in context of bloating/distention which may be 2/2 pancreatitis. NG tube low intermittent suction. repeat KUB did not suggest obstruction - 06/08 CT abd/pelv ordered because patient having symptoms in AM despite night of NG suction. Result showed peripancreatic fat infiltration consistent w/ acute pancreatitis. No free air or evidence of bowel obstruction. - removed NG tube at 1830 after reexamination of abdomen did not suggest worsened distention since AM. total 24 hr NG output was 900cc. restarted clear liquid diet. will encourage ambulation. LR is at 75/hr. - Additional IV fluids also from antibiotics and k riders. 06/09 abd is nontender on exam and slightly distended, but soft and hypoactive bowel sounds. subjectively, still bloated. will advance to full liquid diet + low fat criterion. hyperbilirubinemia - asymptomatic. 0.9->2.0->2.1->1.3 - 06/08 also has mild ast elevation to 51. 06/09 resolved - no anemia. mrcp did not show bile ductal dilation. - will follow clinically pneumonia vs atelectasis - bibailar densities on cxr. groundglass opacities on ct. imaging suggests pneumonia vs atelectasis. CTA neg for PE. - 06/07 cxr: Progressive bibasilar pulmonary opacities. - 06/08 cxr: Slight progression in the bibasilar pulmonary opacities. No overt failure + leukocytosis 15->20.26->18.99. afebrile - 06/08: empiric Zosyn switched to IV ceftriaxone 1g daily and IV azithromycin 500mg daily - duonebs as needed - 06/08 ordered incentive spirometry. continue encouraging use - good symptom improvement w/ 40 mg IV lasix the past 2 days. will order 20 mg IV lasix PM of 06/09 - Is/Os 2.8L in 2L out. cumulative 15L in 7L out - new O2 requirement this admission, satting low 90s on 2L nasal cannula. 06/09: tolerating room air, satting 90. - will give 40 mg IV lasix this evening after reassessing - will check cxr in AM - 2 sets of sputum culture ordered, both contaminated hypokalemia - 2.9 on 06/08. repleting. 4 bags of 10 meq k rider and 20 meq PO power ordered - 2.7 on 06/09. repleted w/ 40 meq PO and 20meq k rider. PM lab: K of 2.9. Will replete with another 40 meq k rider this evening. - not using NG tube so should have less GI losses dilated aortic root - outpt f/u pulm nodules, up to 6 mm - outpt f/u FEN/GI: full liquid + low fat diet. 75 mL/hr LR. will d/c fluids if tolerating diet code: full ppx: lovenox sq 40mg daily. famotidine IV 20 q12 dispo: med/surg (2) Pneumonia: (3) Hypokalemia: (4) Hyperbilirubinemia: (5) Pulmonary nodule: (6) Dilated aortic root: Admission and Anticipated Discharge Date Admission Date: June 06, 2020 Supervising Physician Co-Signing Physician Notes Patient seen and examined independently of PGY-1 Dr. Hernandez. Agree with history, exam findings, assessment and plan as outlined. In brief, Mr. Fung is a 50 year old healthy male admitted with acute pancreatitis of unclear etiology. NGT removed yesterday. Doing well. No nausea or vomiting. Still reports some bloating sensation, but abdomen is less uncomfortable. Did have a small bowel movement yesterday. Vital signs and nursing notes reviewed. Nontoxic appearing. Abdomen + bowel sounds. Distended, but soft. Non-tender in the epigastric region. 1. Pancreatitis. Unclear etiology. Improving. Will need outpatient EUS to rule out pancreatic head mass. CT Abd/Pelvis consistent with acute pancreatitis. Noted small bibasilar effusions. Pain control with dilaudid, morphine, Tylenol. Decreased IVFs today. Encouraged oral liquids. NGT removed. Clears to full liquids. Appreciate GI recommendations. 2. Abdominal distention. Soft, non-tender. ?ileus secondary to resolving acute pancreatitis vs constipation. Per GI, will trial miralax BID (was previously ordered as TID) and repeat fleet enema. However, he may have increased bloating with the miralax. Continues to ambulate in the hallways. 3. Hyperbili. Improving. 4. Acute hypoxic respiratory failure. New O2 requirement this admission, now off supplemental O2. 5. Pneumonia. CXR with bibasilar densities and follow up CT with ground glass opacities. Repeat CXR on 06/07 with worsening opacities. Switched to ceftriaxone and azithromycin to cover for community acquired pneumonia. 6. Pulm edema/effusion. Received Lasix. 7. Hypokalemia. Likely secondary from Lasix and decreased PO intake. Repleting potassium. 8. Pulm nodules. Outpatient follow up imaging. Dispo: pending clinical improvement Subjective Constipation was his main complaint this morning. He had small BM last night. No flatus. Appetite is small. + nausea, no vomiting. He has a low back ache. PM update: patient feels bloated and was unable to finish the Miralax. Review of Systems Review of Systems: Constitutional: Denies fever, chills Cardiovascular: Denies chest pain Respiratory: + symptomatic improvement after PM Lasix yesterday. No pleuritic pain, but breathing is not as full as baseline. Gastrointestinal: See HPI Genitourinary: Denies urinary symptoms including dysuria Musculoskeletal: Denies weakness, muscle aches/pain, joint aches/pain Neurological: Denies headache, numbness, tingling, focal weakness Physical Exam Physical Exam: General: Grossly A&O. NAD. Cooperative. HEENT: Atraumatic, normocephalic. EOMI Pulm: Mild crackles at middle lung langston, improved from yesterday. Crackles at R lower lobe, posteriorly. No respiratory distress. Cardiac: RRR, -mrg. No LE edema. Abdominal: Soft, mild distention, but soft. Nontender to palpation at all quadrants to light-moderate palpation. Hypoactive bowel sounds. Results & Data Results & Data ([facility]) Vital Signs (Past 12 Hours) Vital Signs Temp Pulse Resp BP Pulse Ox 06/08/20 22:19 37.4 C 81 14 137/83 90 06/08/20 21:12 91 Resident Activity Tracking Resident Involvement: Resident Care Provided Care Provided: Adult Hospital Medicine (1) Acute pancreatitis Acute pancreatitis complication: unspecified Pancreatitis type: unspecified pancreatitis type Qualified Code(s): K85.90 - Acute pancreatitis without necrosis or infection, unspecified
[2020-06-09 08:25] LABS: Basophils # (auto) 0.01 K/uL (0-0.2); Basophils % (auto) 0.1 %; Eosinophils # (auto) 0.07 K/uL (0-0.5); Eosinophils % (auto) 0.4 %; Hematocrit (blood only) 38.2 % (42-52); Hemoglobin 13.3 g/dL (14.0-18.0); Immature Granulocytes # (auto) 0.06 K/uL (0.00-0.02); Immature Granulocytes % (auto) 0.3 %; Lymphocytes # (auto) 0.86 K/uL (1.2-3.4); Lymphocytes % (auto) 4.9 %; Mean Corpuscular Hemoglobin 30.6 pg (25-34); Mean Corpuscular Hgb Conc 34.8 g/dL (32-36); Mean Corpuscular Volume 87.8 fL (80-100); Mean Platelet Volume 10.4 fL (7.4-10.4); Monocytes # (auto) 1.24 K/uL (0.11-0.59); Monocytes % (auto) 7.1 %; Neutrophils # (auto) 15.26 K/uL (1.4-6.5); Neutrophils % (auto) 87.2 %; Platelet Count 178 K/uL (130-400); RDW Coefficient of Variation 12.9 % (11.5-14.5); RDW Standard Deviation 42.1 fL (36.4-46.3); Red Blood Count 4.35 M/uL (4.7-6.1)
[2020-06-09 08:48] LABS: Albumin Level 2.6 gm/dl (3.4-5.0); BUN Creatinine Ratio 17.7 (10-20); Creatinine Clr Calc Pharmacy 109.9 ml/min; Est GFR (African American) 109.8; Est GFR (Non-African American) 94.7; Magnesium 2.1 mg/dl (1.8-2.4); Potassium 2.7 mmol/L (3.5-5.1)
[2020-06-09 09:09] LABS: Albumin Globulin Ratio 0.7 (0.9-2); Bilirubin,Total 1.3 mg/dl (0.2-1); Total Protein 6.6 gm/dl (6.4-8.2)
[2020-06-09] MEDS: POTASSIUM CHLORIDE PWD 20 MEQ PACK PO SCH (11:54)
[2020-06-09] MEDS: POTASSIUM CHLORIDE / WTR 10 MEQ/100 ML PLCT IV SCH ×2 (11:58→13:40)
[2020-06-09] MEDS ORDERED: POLYETHYLENE (MIRALAX) 17 GM PACK PO SCH (13:00)
[2020-06-09] MEDS ORDERED: POLYETHYLENE (MIRALAX) 17 GM PACK PO PRN ×2 (13:25→13:26)
[2020-06-09 14:57] LABS: BUN Creatinine Ratio 17.7 (10-20); Calcium 8.1 mg/dl (8.5-10.1); Creatinine Clr Calc Pharmacy 103.3 ml/min; Est GFR (African American) 101.8; Est GFR (Non-African American) 87.8; Potassium 2.9 mmol/L (3.5-5.1)
[2020-06-09] MEDS: ACETAMINOPHEN 500 MG TAB PO PRN (15:24)
[2020-06-09] MEDS ORDERED: SOD PHOSPHATE/SOD BIPHOSPHATE ENEMA 132 ML BTL PR ONE (16:49)
--- NOTE | 2020-06-09 16:55 | Gastroenterology Progress Note ---
Date of Service June 09, 2020 Assessment & Plan (1) Acute pancreatitis: lipase is normal and no abdominal pain so seems to be improving. TB 1.3 improved and other LFTS normal. WBC 17.5 trending down. Urine output 0.52 ml/hour per last 26 hours as of 1630. Continue IVF until po adequate (current po not on I/O sheet but per patient he is not drinking much). Etiology unclear so recommend outpt EUS in about 6 weeks to look for underlying pancreas pathology. abdominal distension---? partial ileus vs obstipation---will order another Fleet enema and give miralax bid on scheduled basis rather than prn. No pain and abdomen not tense so doubt abdominal compartment syndrome (CT yesterday did not suggest it also. Admission and Anticipated Discharge Date Admission Date: June 06, 2020 Subjective CC abdominal distension HPI Pt with ongoing abdominal distension but no abd pain. Had minimal BM post enema yesterday and minimal BM this am. Fills up quickly with eating clear liquids. Physical Exam Respiratory: normal respiratory effort Gastrointestinal (Abdomen): pos bs, moderate distension and tympany, no guarding nor rebound. Results & Data ([facility]) Vital Signs (Past 12 Hours) Vital Signs Temp Pulse Resp BP Pulse Ox 06/09/20 16:00 37.2 C 63 16 157/97 H 92 06/09/20 07:43 37.3 C 71 18 119/78 90 (1) Acute pancreatitis Acute pancreatitis complication: unspecified Pancreatitis type: unspecified pancreatitis type Qualified Code(s): K85.90 - Acute pancreatitis without necrosis or infection, unspecified
[2020-06-09] MEDS: cefTRIAXone SODIUM 2,000 MG in DEXTROSE 5% 50 ML IV SCH (17:21)
[2020-06-09] MEDS: AZITHROMYCIN 500 MG in DEXTROSE 5% 250 ML IV SCH (18:03)
[2020-06-09] MEDS: ENOXAPARIN INJ 40 MG/0.4 ML SYR SQ SCH (21:02)
[2020-06-09] MEDS: POLYETHYLENE (MIRALAX) 17 GM PACK PO SCH (21:05)
[2020-06-10] MEDS: ACETAMINOPHEN 500 MG TAB PO PRN ×3 (00:04→23:10)
[2020-06-10] MEDS: FAMOTIDINE 20 MG in SYRINGE 3 ML IV SCH ×2 (04:57→17:05)
[2020-06-10 05:51] LABS: Basophils # (auto) 0.01 K/uL (0-0.2); Basophils % (auto) 0.1 %; Eosinophils # (auto) 0.12 K/uL (0-0.5); Eosinophils % (auto) 0.8 %; Hematocrit (blood only) 35.2 % (42-52); Hemoglobin 12.1 g/dL (14.0-18.0); Immature Granulocytes # (auto) 0.13 K/uL (0.00-0.02); Immature Granulocytes % (auto) 0.8 %; Lymphocytes # (auto) 1.05 K/uL (1.2-3.4); Lymphocytes % (auto) 6.8 %; Mean Corpuscular Hemoglobin 30.4 pg (25-34); Mean Corpuscular Hgb Conc 34.4 g/dL (32-36); Mean Corpuscular Volume 88.4 fL (80-100); Mean Platelet Volume 9.7 fL (7.4-10.4); Monocytes # (auto) 1.34 K/uL (0.11-0.59); Monocytes % (auto) 8.6 %; Neutrophils # (auto) 12.87 K/uL (1.4-6.5); Neutrophils % (auto) 82.9 %; Platelet Count 165 K/uL (130-400); RDW Coefficient of Variation 13.1 % (11.5-14.5); RDW Standard Deviation 42.5 fL (36.4-46.3); Red Blood Count 3.98 M/uL (4.7-6.1); White Blood Count 15.52 K/uL (4.8-10.8)
--- NOTE | 2020-06-10 06:09 | Hospitalist Progress Note ---
Date of Service June 10, 2020 Assessment & Plan (1) Acute pancreatitis: 50 y/o male w/ no significant past medical hx who presented w/ pancreatitis w/ persistent bloating symptoms this admission. Stable. abdominal bloating, likely secondary to acute pancreatitis - s/p 24 hrs NG tube 06/07-06/08 w/ some relief - nontender on abd exam - will attempt to advance diet as tolerated, encourage ambulation and provide enemas/suppositories and bowel regimen (as tolerated) - will use Fleet enemas as needed during upcoming days - changed scheduled miralax to prn because increased discomfort/bloating when used - held narcotic pain prns acute pancreatitis, confirmed by imaging - no etoh use, obesity, gallstones, or tobacco use. lipid panel wnl. - Lipase 46838->3751->489->154 - no acute findings on gallbladder US. MRCP consistent w/ acute pancreatitis. outpt imaging f/u because cannot r/o pancreatic head mass - pain control w/ prn tylenol. avoiding morphine prn because of constipation and has not requested it - famotidine IV BID. zofran IV prn - LR was 125/hr at admission ->250/hr->75/hr after concerns of fluid overload - 06/07 consulted GI because of abdominal tenderness in context of bloating/distention which may be 2/2 pancreatitis. NG tube low intermittent suction. repeat KUB did not suggest obstruction - 06/08 CT abd/pelv ordered because patient having symptoms in AM despite night of NG suction. Result showed peripancreatic fat infiltration consistent w/ acute pancreatitis. No free air or evidence of bowel obstruction. - removed NG tube at 1830 after reexamination of abdomen did not suggest worsened distention since AM. total 24 hr NG output was 900cc. restarted clear liquid diet. will encourage ambulation. LR is at 75/hr. - Additional IV fluids also from antibiotics and k riders. 06/09 abd is nontender on exam and slightly distended, but soft and hypoactive bowel sounds. subjectively, still bloated. will advance to full liquid diet + low fat criterion. 06/10 more distended this PM. glycerin suppository provided temporary relief and small-mod BM. continue full liquid diet though patient is not intaking much. d/c'd fluids tonight. hyperbilirubinemia - asymptomatic. 0.9->2.0->2.1->1.3->1.8 - 06/08 also has mild ast elevation to 51. 06/09 resolved - no anemia. mrcp did not show bile ductal dilation. - will follow clinically leukocytosis wbc downtrending. 20.26->18.99->17.5->15.52 - could be from lung infection. continue empiric abx. sputum cultures inconclusive - low suspicion for abdominal infection or urinary infection. no urinary sxs. no abd pain. abd imaging reviewed pneumonia vs atelectasis - bibailar densities on cxr. groundglass opacities on ct. imaging suggests pneumonia vs atelectasis. CTA neg for PE. - 06/07 cxr: Progressive bibasilar pulmonary opacities. - 06/08 cxr: Slight progression in the bibasilar pulmonary opacities. No overt failure + leukocytosis, see above. afebrile - 06/08: empiric Zosyn switched to IV ceftriaxone 1g daily and IV azithromycin 500mg daily - duonebs as needed - 06/08 ordered incentive spirometry. continue encouraging use - good symptom improvement w/ 40 mg IV lasix the past 06/07-06/08. will order 20 mg IV lasix PM of 06/09 - 1.7L in. 400mL out. cumulative 18L in. 8L out - new O2 requirement this admission, satting low 90s on 2L nasal cannula. 06/09: tolerating room air, satting 90. - will give 40 mg IV lasix this evening after reassessing - will check cxr in AM. 06/10 cxr: Unchanged small pleural effusions with bibasilar consolidation. PM exam: increased crackles. Dc'd fluids and will order 40 mg IV lasix. - 2 sets of sputum culture ordered, both contaminated hypokalemia - 2.9 on 06/08. repleting. 4 bags of 10 meq k rider and 20 meq PO power ordered - 2.7 on 06/09. repleted w/ 40 meq PO and 20meq k rider. PM lab: K of 2.9. Will replete with another 40 meq k rider this evening. - not using NG tube so should have less GI losses - 3.5 on 06/10. will replete dilated aortic root - outpt f/u pulm nodules, up to 6 mm - outpt f/u FEN/GI: full liquid + low fat diet. d/c'd fluids 06/10 code: full ppx: lovenox sq 40mg daily. famotidine IV 20 q12 dispo: med/surg. not ready for dispo because of persistent abd bloating (2) Pneumonia: (3) Hypokalemia: (4) Hyperbilirubinemia: (5) Pulmonary nodule: (6) Dilated aortic root: (7) Abdominal bloating: (8) Leukocytosis: Admission and Anticipated Discharge Date Admission Date: June 06, 2020 Supervising Physician Co-Signing Physician Notes Patient seen and examined independently of PGY-1 Dr. Hernandez. Agree with history, exam findings, assessment and plan as outlined. In brief, Mr. Fung is a 50 year old healthy male admitted with acute pancreatitis of unclear etiology. Has been walking, tolerating liquids. Can't sleep--mind keeps racing. No history of prior anxiety or insomnia. Vital signs and nursing notes reviewed. Nontoxic appearing. Abdomen + bowel sounds. Distended, but soft. Non-tender in the epigastric region. 1. Pancreatitis. Unclear etiology. Improving. Will need outpatient EUS to rule out pancreatic head mass. CT Abd/Pelvis consistent with acute pancreatitis. Decrease IVFs to 50/hr. 2. Abdominal distention. Soft, non-tender. ?ileus secondary to resolving acute pancreatitis vs constipation. Per GI, will trial miralax BID (was previously ordered as TID) gave glycerin suppository with some relief. Continues to ambulate in the hallways. 3. Hyperbili. Improving. 4. Acute hypoxic respiratory failure. New O2 requirement this admission, now off supplemental O2. 5. Pneumonia. CXR with bibasilar densities and follow up CT with ground glass opacities. Repeat CXR on 06/07 with worsening opacities. Switched to ceftriaxone and azithromycin to cover for community acquired pneumonia. 6. Pulm edema/effusion. Lasix again today. 7. Hypokalemia. Likely secondary from Lasix and decreased PO intake. Repleting potassium. 8. Pulm nodules. Outpatient follow up imaging. Dispo: pending clinical improvement Subjective He had some SOB overnight. He did not recceive lasix yesterday evening. Main complaint is abd bloating. +small BM. Bilat low back ache. Small appetite. No N/V. PM update: increased bloating. Had temporary relief and small-mod BM after glycerin suppository. Patient has not been able to eat/drink much. Review of Systems Review of Systems: Constitutional: Denies fever, chills Cardiovascular: Denies chest pain Respiratory: More comfortable when supine. Gastrointestinal: Denies abdominal pain, nausea, vomiting, constipation, diarrhea. + discomfort from bloating. Genitourinary: Denies urinary symptoms including dysuria Musculoskeletal: See HPI Neurological: Denies headache, numbness, tingling, focal weakness Physical Exam Physical Exam: General: Grossly A&O. NAD. Cooperative. HEENT: Atraumatic, normocephalic. Pulm: Faint crackles L mid and lower langston. End exp wheeze, faint at RML and RLL, resolved on repeat.No respiratory distress. PM exam: crackles at L middle, L lower and faint at R lower lobes. No wheezes. Cardiac: RRR, -mrg. Abdominal: Mild-mod distended, soft.No ttp to palpation at lower back. Resident Activity Tracking Resident Involvement: Resident Care Provided Care Provided: Adult Hospital Medicine (1) Acute pancreatitis Acute pancreatitis complication: unspecified Pancreatitis type: unspecified pancreatitis type Qualified Code(s): K85.90 - Acute pancreatitis without necrosis or infection, unspecified
[2020-06-10 06:24] LABS: Albumin Level 2.3 gm/dl (3.4-5.0); BUN Creatinine Ratio 19.2 (10-20); Calcium 7.8 mg/dl (8.5-10.1); Creatinine Clr Calc Pharmacy 131.1 ml/min; Est GFR (African American) 121.1; Est GFR (Non-African American) 104.5; Potassium 2.9 mmol/L (3.5-5.1)
[2020-06-10 06:39] LABS: Albumin Globulin Ratio 0.6 (0.9-2); Bilirubin,Total 1.8 mg/dl (0.2-1); Globulin 3.8 gm/dl (2.5-4.0); Total Protein 6.1 gm/dl (6.4-8.2)
[2020-06-10] MEDS: LACTATED RINGER'S 1,000 ML IV SCH (07:02)
[2020-06-10] MEDS: POTASSIUM CHLORIDE PWD 20 MEQ PACK PO SCH (07:34)
[2020-06-10] MEDS: POLYETHYLENE (MIRALAX) 17 GM PACK PO SCH (07:41)
[2020-06-10] MEDS: POTASSIUM CHLORIDE / WTR 10 MEQ/100 ML PLCT IV SCH ×4 (07:41→11:05)
[2020-06-10] MEDS ORDERED: ZOLPIDEM TARTRATE 5 MG TAB PO PRN (09:33)
--- NOTE | 2020-06-10 09:49 | XRay Report ---
XR chest 1V portable HISTORY: 50 years-old Male atlectasis vs pneumonia acute shortness breath with pulmonary opacities COMPARISON: CT abdomen and pelvis 06/08/2020, chest radiograph 06/08/2020 TECHNIQUE: Portable AP view of the chest FINDINGS: Cardiac silhouette is mildly enlarged. Unchanged pleural effusions with bibasilar consolidation. No p neumothorax or overt pulmonary edema. The bones of the chest appear grossly intact. IMPRESSION: Unchanged small pleural effusions with bibasilar consolidation. These findings favor atel ectasis, however pneumonitis could appear similarly. ACT 112: Negative or not required by law. The above report was generated using voice recognition software. It may contain grammatical, syntax o r spelling errors. Electronically signed by: Wicho Haines M.D. 06/10/2020 9:47 AM
[2020-06-10] MEDS ORDERED: GLYCERIN ADULT 12 SUPP/BOX SUPP PR ONE (10:00)
[2020-06-10 13:26] LABS: BUN Creatinine Ratio 16.1 (10-20); Calcium 8.1 mg/dl (8.5-10.1); Creatinine Clr Calc Pharmacy 120.3 ml/min; Est GFR (African American) 116.9; Est GFR (Non-African American) 100.9; Potassium 3.5 mmol/L (3.5-5.1)
--- NOTE | 2020-06-10 14:27 | Gastroenterology Progress Note ---
Date of Service June 10, 2020 Assessment & Plan (1) Acute pancreatitis: improving overall----lipase is normal and no abdominal pain. TB 1.8 higher but other LFTS normal. WBC 15.5 trending down. Cut back LR to 50 ml/hour as he is tolerating po. Etiology unclear so recommend outpt EUS in about 6 weeks to look for underlying pancreas pathology. abdominal distension---? partial ileus vs obstipation---had a bm this am and active bowel sounds. Will continue Miralax bid. No pain and abdomen not tense so doubt abdominal compartment syndrome. I am going off service tomorrow at [address] Mccabe is assuming GI care then. Admission and Anticipated Discharge Date Admission Date: June 06, 2020 Subjective cc f/u pancreatitisi HPI Pt states abdominal distension present but improved slighltly. Had some more of a bm today post suppository. He feels a lot of rumbling in the abdomen. No abd pain. Eating a full liquid diet and tolterating so far. Physical Exam Respiratory: normal respiratory effort Gastrointestinal (Abdomen): pos bs, mild to mod distension, no guarding nor rebound Results & Data ([facility]) Vital Signs (Past 12 Hours) Vital Signs Temp Pulse Resp BP Pulse Ox 06/10/ 07:28 37.0 C 56 L 14 125/70 91 (1) Acute pancreatitis Acute pancreatitis complication: unspecified Pancreatitis type: unspecified pancreatitis type Qualified Code(s): K85.90 - Acute pancreatitis without necrosis or infection, unspecified
[2020-06-10] MEDS: cefTRIAXone SODIUM 2,000 MG in DEXTROSE 5% 50 ML IV SCH (17:07)
[2020-06-10] MEDS ORDERED: POTASSIUM CHLORIDE PWD 20 MEQ PACK PO ONE (17:24)
[2020-06-10] MEDS ORDERED: POLYETHYLENE (MIRALAX) 17 GM PACK PO PRN (17:25)
[2020-06-10] MEDS ORDERED: FUROSEMIDE 40 MG in SYRINGE 0 ML IV ONE (17:30)
[2020-06-10] MEDS: AZITHROMYCIN 500 MG in DEXTROSE 5% 250 ML IV SCH (17:40)
[2020-06-10] MEDS: ENOXAPARIN INJ 40 MG/0.4 ML SYR SQ SCH (19:28)
[2020-06-11] MEDS: FAMOTIDINE 20 MG in SYRINGE 3 ML IV SCH (03:08)
[2020-06-11 07:52] LABS: Basophils # (auto) 0.02 K/uL (0-0.2); Basophils % (auto) 0.1 %; Eosinophils # (auto) 0.18 K/uL (0-0.5); Eosinophils % (auto) 1.1 %; Hematocrit (blood only) 38.8 % (42-52); Hemoglobin 13.6 g/dL (14.0-18.0); Immature Granulocytes # (auto) 0.42 K/uL (0.00-0.02); Immature Granulocytes % (auto) 2.6 %; Lymphocytes % (auto) 6.9 %; Mean Corpuscular Hemoglobin 30.8 pg (25-34); Mean Corpuscular Hgb Conc 35.1 g/dL (32-36); Mean Platelet Volume 9.9 fL (7.4-10.4); Monocytes % (auto) 9.4 %; Neutrophils # (auto) 12.68 K/uL (1.4-6.5); Neutrophils % (auto) 79.9 %; Platelet Count 217 K/uL (130-400); RDW Coefficient of Variation 13.6 % (11.5-14.5); Red Blood Count 4.41 M/uL (4.7-6.1)
[2020-06-11] MEDS: ACETAMINOPHEN 500 MG TAB PO PRN (08:07)
[2020-06-11 08:31] LABS: Albumin Level 2.6 gm/dl (3.4-5.0); BUN Creatinine Ratio 12.6 (10-20); Calcium 8.6 mg/dl (8.5-10.1); Creatinine Clr Calc Pharmacy 111.1 ml/min; Est GFR (African American) 111.2; Potassium 3.1 mmol/L (3.5-5.1)
[2020-06-11 09:04] LABS: Albumin Globulin Ratio 0.7 (0.9-2); Bilirubin,Total 2.4 mg/dl (0.2-1); Globulin 3.9 gm/dl (2.5-4.0); Total Protein 6.5 gm/dl (6.4-8.2)
[2020-06-11] MEDS ORDERED: POTASSIUM CHLORIDE CRTAB 20 MEQ TABCR PO ONE (09:30)
--- NOTE | 2020-06-11 09:33 | Gastroenterology Progress Note ---
Date of Service June 11, 2020 Assessment & Plan (1) Acute pancreatitis: improving overall----lipase is normal and no abdominal pain. TB 2.4 today but other LFTS normal. WBC 15.5 trending down. Tolerating regular po diet. Etiology unclear so recommend outpt EUS in about 6 weeks to look for underlying pancreas pathology. Will arrange outpatient follow-up. Please refer to supervising physician addendum for further recommendations. Admission and Anticipated Discharge Date Admission Date: June 06, 2020 Subjective Patient sitting in a chair eating regular diet. States he is feeling better. Denies abdominal pain. Denies nausea or vomiting. Reports 3 small bowel movements after suppository yesterday. Reports miralax held yesterday due to increased abdominal bloating and shortness of breath. He received lasix yesterday. Review of Systems Review of Systems: All systems reviewed & are unremarkable except as noted in Subjective Physical Exam Constitutional: WD/WN, vitals as above Respiratory: normal respiratory effort; no respiratory distress and no labored breathing Cardiovascular: Rate/Rhythm: regular rate and regular rhythm Extremities: no edema Gastrointestinal (Abdomen): pos bs, mild to mod distension, no guarding nor rebound Results & Data ([facility]) Vital Signs (Past 12 Hours) Vital Signs Temp Pulse Resp BP Pulse Ox 06/11/20 07:49 36.8 C 64 18 137/91 92 06/10/20 23:10 37.1 C 69 16 133/79 92 Laboratory Results - last 24 hr 06/10/20 06/11/20 06/11/20 12:56 07:35 07:35 WBC 15.90 H RBC 4.41 L Hgb 13.6 L Hct 38.8 L MCV 88.0 MCH 30.8 MCHC 35.1 RDW Std Deviation 44.0 RDW Coeff of Brittany 13.6 Plt Count 217 MPV 9.9 Immature Gran % (Auto) 2.6 Neut % (Auto) 79.9 Lymph % (Auto) 6.9 [place] % (Auto) 9.4 Eos % (Auto) 1.1 Baso % (Auto) 0.1 Neut # (Auto) 12.68 H Lymph # (Auto) 1.10 L [place] # (Auto) 1.50 H Eos # (Auto) 0.18 Baso # (Auto) 0.02 Immature Gran # (Auto) 0.42 H Sodium 138 Potassium 3.5 D Chloride 103 Carbon Dioxide 30 Anion Gap 5.0 BUN 14 Creatinine 0.85 Est Cr Clr Drug Dosing 120.3 Est GFR ( Amer) 116.9 Est GFR (Non-Af Amer) 100.9 BUN/Creatinine Ratio 16.1 Glucose 118 H Calcium 8.1 L Total Bilirubin AST ALT Alkaline Phosphatase Total Protein Albumin Globulin Albumin/Globulin Ratio Lipase Procalcitonin 0.74 H 06/11/20 07:35 WBC RBC Hgb Hct MCV MCH MCHC RDW Std Deviation RDW Coeff of Brittany Plt Count MPV Immature Gran % (Auto) Neut % (Auto) Lymph % (Auto) [place] % (Auto) Eos % (Auto) Baso % (Auto) Neut # (Auto) Lymph # (Auto) [place] # (Auto) Eos # (Auto) Baso # (Auto) Immature Gran # (Auto) Sodium 136 Potassium 3.1 L Chloride 100 Carbon Dioxide 28 Anion Gap 7.0 BUN 12 Creatinine 0.92 Est Cr Clr Drug Dosing 111.1 Est GFR ( Amer) 111.2 Est GFR (Non-Af Amer) 96.0 BUN/Creatinine Ratio 12.6 Glucose 113 H Calcium 8.6 Total Bilirubin 2.4 H AST 22 ALT 20 Alkaline Phosphatase 123 H Total Protein 6.5 Albumin 2.6 L Globulin 3.9 Albumin/Globulin Ratio 0.7 L Lipase 113 Procalcitonin (1) Acute pancreatitis Acute pancreatitis complication: unspecified Pancreatitis type: unspecified pancreatitis type Qualified Code(s): K85.90 - Acute pancreatitis without necrosis or infection, unspecified
[2020-06-11] MEDS ORDERED: METOCLOPRAMIDE HCL 10 MG TABLET PO ONE (10:45)
--- NOTE | 2020-06-11 10:55 | Hospitalist Progress Note ---
Date of Service June 11, 2020 Assessment & Plan Admission and Anticipated Discharge Date Admission Date: June 06, 2020 Results & Data Results & Data ([facility]) Vital Signs (Past 12 Hours) Vital Signs Temp Pulse Resp BP Pulse Ox 06/11/20 07:49 36.8 C 64 18 137/91 92 06/10/20 23:10 37.1 C 69 16 133/79 92
--- NOTE | 2020-06-11 12:36 | Discharge Summary ---
Date of Service June 11, 2020 Admission HPI Per Admitting Provider The patient is a 50-year-old male with no significant past medical history, who presents with symptoms of acute onset of back pain, nausea and vomiting about 1- 1/2 hours after eating supper this evening. He said no previous occurrence of the symptoms. He denies any recent travel or sick exposures. He denies any alcohol use. Principal Diagnosis Pancreatitis Discharge Exam Constitutional WD/WN, vitals as above Eyes PERRL, conjunctivae normal, anicteric sclerae ENMT external ear and nose normal, oropharynx normal Respiratory normal respiratory effort, lungs clear to auscultation Cardiovascular Rate/Rhythm: regular rate and regular rhythm Heart Sounds: no gallop, no murmur and no cardiac rub Gastrointestinal (Abdomen) normal bowel sounds, soft, nontender, no hepatosplenomegaly Musculoskeletal no cyanosis or clubbing, extremities motor strength 5/5 Skin no rashes, warm and dry Psychiatric Orientation: alert and oriented x 3 Discharge Data Allergies Allergy/AdvReac Type Severity Reaction Status Date / Time No Known Allergies Allergy Verified 06/05/20 21:06 Consultations 06/06/20 00:21 ED Decision to Admit Stat 06/07/20 11:25 Consult Gastroenterology Routine Ordered Studies 06/05/20 20:58 US gallbladder Urgent 06/05/20 22:10 CT angio chest PE protocol Urgent 06/06/20 02:06 MR MRCP Stat 06/08/20 08:30 CT abd pelvis wo con Daily Hospital Course (1) Acute pancreatitis: 50 y/o male w/ no significant past medical hx who presented w/ pancreatitis w/ persistent bloating symptoms this admission. Pancreatitis: - no etoh use, obesity, gallstones, or tobacco use. lipid panel wnl. - Lipase [id number] on admission with downtrend to 113 - CT abd/pelv showed peripancreatic fat infiltration consistent w/ acute pancreatitis. No free air or evidence of bowel obstruction - no acute findings on gallbladder US. MRCP consistent w/ acute pancreatitis. outpt imaging f/u because cannot r/o pancreatic head mass - patient having slowed progression of bowel movements, likely secondary to remaining irritation from pancreatitis, with progression prior to discharge - encourage Miralax as needed for maintenance of bowel movements, and low fat diet - Gastroenterology consulted: to have follow-up for EUS in 6 weeks Pneumonia: - CXR demonstrating bibailar densities. - CT chest demonstrating groundglass opacities suggestive of pneumonia vs atelec tasis - completed course of Azithromycin in hospital (2) Pneumonia: (3) Abdominal distension: (4) Pulmonary nodule: Total Time Total Time Spent Total Time Spent (In Minutes): <30 Discharge Plan Discharge Items Patient Disposition: Home - Self-Care Reason For Visit: PANCREATITIS Discharge Diagnosis: Pancreatitis Activity: Per Instructions section Non-emergency contact: Primary Care Provider and [facility] Call non-emergency contact if: you have any medication questions, your symptoms worsen and you have a fever Follow-up/Referrals: Wagner Mccabe [Physician] - 07/23/20 9:40 am Dharmesh Ryan [Primary Care Provider] - 06/18/20 9:50 am Diet: Regular and Carb Count or DM1 Addtl Attending Provider Instructions: You were seen and admitted for concern for abdominal pain; during this admission, it was discovered that you had pancreatitis that then caused a large amount of bloating and slowing of your bowel movements. Now that you are being discharged home, it is important that over the coming weeks you continue to abstain from alcohol consumption, as well as limit your consumption of fatty foods as these things can re-agitate your pancreas. This will be a temporary diet change as the farther you get from this original episode of pancreatitis you should be able to better tolerate a normal diet without complications. You should have a follow-up with the Green Plumber in 6 weeks. Pending Studies at Discharge: No Stand-Alone Forms: My [facility] Stem, Smoking Cessation Medications and DC Order Prescriptions: No Action No Known Home Medications RF: 0 Discharge Orders: Discharge Order (Routine); Ordered 06/11/20 Ordered By: Arnol Macias Admission Data Admit Date/Time: 06/06/20 02:06 Attending Provider: Marquise Duque Admit Provider: Ar Hoyt Primary Care Provider: Dharmesh Ryan Other Providers: Ar Hoyt ; Wagner Mccabe ; Carissa Shipman Other Interventions: Discharge Summary Assessment (RN) Last Done: 06/11/20 12:51 Supervising Physician Co-Signing Physician Notes I personally examined the patient and verified all perez points of history and exam, discussed case, and agree with decision making with Dr Macias Had a bowel movement. Feeling much better. Feeling up to going home. Eating okay. Vitals noted, in general he is awake and alert pleasant no distress. HEENT normocephalic atraumatic mucous membranes moist. Breathing unlabored no accessory muscle use good effort. Skin shows no rashes no pallor or icterus. Abdomen soft nondistended nontender. Acute pancreatitis, subsequent constipation versus post pancreatitis ileuseither way improving. Stable/safe for home. Outpatient PCP and GI follow- up. Otherwise as above. Resident Activity Tracking Resident Involvement: Resident Care Provided Care Provided: Adult [facility]
--- NOTE | 2020-06-11 15:06 | Progress Notes ---
DATE: 06/11/2020 ADDENDUM To progress note done by Telma Roche earlier today. I reviewed the patient's chart, labs, imaging and talked to the patient. The patient has acute idiopathic pancreatitis. He is improving and is scheduled to be discharged today. I have recommended a low fat diet for 2 weeks and avoidance of alcohol. Also recommended that he follow up in the office and consider an outpatient EUS once his pancreatitis has completely resolved.
--- NOTE | 2020-06-11 21:09 | Billing Data ---
Date of Service June 11, 2020 Coding Level of Care Code D/C Day Management <30 mins
== END 2020-06-11 14:46 | disposition home or self-care (01) | DRG 438 ==
LOC: ED 20:19 → SUATTDRO 06-06 02:06 → 3W 06-06 02:06

== ENCOUNTER 2020-06-25 17:38 | Inpatient (IN) ==
--- NOTE | 2020-06-25 18:59 | Emergency Department Note ---
Impression & Plan Acute pancreatitis, Hyperbilirubinemia, Pancreatic pseudocyst ED Provider Note NAME: LIDIA PRECIADO AGE: 50 SEX: M : 1970 ARRIVES VIA: Walk-In INFORMANT: Patient, ED PROVIDER(S): Jarod Blevins MD Chief Complaint: Abdominal pain, weakness HPI: Patient does present with concern for abdominal pain and weakness. The patient did have a recent admission and discharge toward the end of May with the patient was diagnosed with pancreatitis. The patient did not have a known etiology and was deemed idiopathic. The patient states that he was doing well as an outpatient until about Thursday when he was having some lower abdominal discomfort and weakness. The patient has had decreased p.o. appetite. The patient denies any upper respiratory type symptoms. The patient denies any alcohol or tobacco use. Patient did take some Tylenol earlier today which he says slightly improved his discomfort which he locates in the epigastric and lower abdomen. The patient was told that he did not have any gallstones at the time of his admission. The patient has not had any abdominal surgeries. Patie nt denies any fevers or chills. They also did note that he appeared somewhat jaundiced today. ROS: See HPI for pertinent positives and negatives. A total of 10 systems were reviewed and otherwise negative. Past medical history: See below Surgical history: See below Social history: See below Physical Exam: GENERAL: Wearing a mask. NAD, non-toxic. EYE EXAM: Scleral icterus noted. PERRL, no anisocoria and EOM's grossly intact w/o pain. NECK: Supple, no nuchal rigidity, no adenopathy, non-tender. No signs of meningismus. LUNGS: Clear to auscultation. Normal chest wall mechanics. HEART: NSR, no MRG. ABDOMEN: Abdomen soft, epigastric and right upper quadrant pain, negative obturators and psoas. Normo-active bowel sounds, no masses, no rebound or guarding. BACK: No CVA TTP. SKIN: No rashes and no bruising. UPPER EXTREMITIES: Upper extremities are grossly normal. LOWER EXTREMITIES: Grossly normal, no edema. NEURO EXAM: A&O x3, cranial nerves II-XII grossly intact, normal speech, moves all 4 extremities on command w/o issue. Differential diagnoses: Appendicitis, testicular torsion, infections, diverticulitis, UTI, obstruction, mesenteric ischemia, aortic pathology, inflammatory bowel disease, renal colic, PUD, pancreatitis, biliary pathology, hernia, volvulus, constipation, as well as other pathologies. Course: Patient was seen and evaluated the bedside. Full history physical exam was performed. EKG: Indication: Abdominal pain Normal sinus rhythm, rate of 99, normal intervals, left axis deviation, T wave inversion in lead III not in contiguous leads. No ST changes. Imaging Studies: See below Cardiac monitoring: An order was placed for continuous cardiac monitoring. The monitor shows a rate of 102 with sinus tachycardia rhythm. MDM: Patient did present with concern for abdominal pain. Blood work is obtained along with CT abdomen pelvis patient was treated with IV fluids blood cultures and Zosyn empirically given the jaundice with associated upper abdominal pain. Patient is a white count of 10.9. The patient's LFTs are elevated. CT abdomen pelvis did show concern for pancreatic pseudocyst and associated possible pericholecystic stranding with gallbladder wall thickening. I did speak with on-call general surgery Ori Patrick PA-C who did evaluate the patient discussed case with on-call general surgeon Dr. Watson who stated that the patient was not a surgical candidate at this time. I subsequently did speak with Dr. Glasgow with GI who stated that the patient could get an MRCP and that we discussed the possibility of a biliary stent if there was a true obstruction. I did speak with the on-call hospitalist and the patient was admitted to the medicine service by Dr. Ma. Past Med/Surg History Medical History No pertinent family history No pertinent past medical history Surgical History No pertinent past surgical history Social History Smoking Status: Never smoker Second Hand Exposure: No; Do You Dip or Chew Tobacco: No; Hx Alcohol Use: No Hx Substance Use: No Preferred Language: Vietnamese Communication Ability: Effective Summer Internship Required: No Beliefs That Will Affect Care: None Current Living Situation: Spouse Other Information That Helps Us Care for You: No Feels Safe at Home: Yes Safety Concerns: Feels Safe At This Time Assistive Devices: None Allergies Allergies Allergy/AdvReac Type Severity Reaction Status Date / Time No Known Allergies Allergy Verified 06/25/20 20:08 Home Meds Home Medications Medication Instructions Recorded Confirmed omeprazole 40 mg PO DAILY 06/25/20 06/25/20 Results & Data (ED) Vital Signs Vital Signs - 24 hr 06/25/20 17:41 06/25/20 19:30 06/25/20 20:00 Temperature 36.4 C L Temperature Source Temporal Artery Scan Pulse Rate 107 H Pulse Rate [Apical] 90 87 Respiratory Rate 18 18 18 Respiratory Effort / Characteristics Non-Labored Respiratory Depth Normal Blood Pressure 129/79 Blood Pressure [Left Arm] 121/95 127/78 Blood Pressure Mean 95 Blood Pressure Mean [Left Arm] 103 94 Blood Pressure Position Sitting Pulse Oximetry 96 96 96 Oxygen Delivery Method Room Air Room Air Room Air Sepsis Recent Fever Within 48 Hours No Sepsis New/Unexplained Change in Mental Status N/A Sepsis Action Taken by Nursing No Action Required 06/25/20 20:47 06/25/20 21:30 06/25/20 22:02 Temperature 37 C Temperature Source Oral Pulse Rate Pulse Rate [Apical] 94 H 90 90 Respiratory Rate 18 18 18 Respiratory Effort / Characteristics Non-Labored Respiratory Depth Normal Blood Pressure Blood Pressure [Left Arm] 123/80 117/86 130/81 Blood Pressure Mean Blood Pressure Mean [Left Arm] 94 96 97 Blood Pressure Position Pulse Oximetry 95 96 96 Oxygen Delivery Method Room Air Room Air Room Air Sepsis Recent Fever Within 48 Hours Sepsis New/Unexplained Change in Mental Status Sepsis Action Taken by [facility] Medications Current Medication List: was personally reviewed by me Laboratory Data Attestation: I reviewed the patient's lab results. Result diagrams: 06/25/20 19:35 06/25/20 19:35 Lab Results 06/25/20 06/25/20 06/25/20 Range/Units 19:25 19:25 19:35 WBC 10.92 H (4.8-10.8) K/uL RBC 4.32 L (4.7-6.1) M/uL Hgb 13.2 L (14.0-18.0) g/dL POC Hgb (14.0-18.0) g/dl Hct 38.7 L (42-52) % POC Hct (42-52) % MCV 89.6 (80-100) fL MCH 30.6 (25-34) pg MCHC 34.1 (32-36) g/dL RDW Std Deviation 44.1 (36.4-46.3) fL RDW Coeff of Brittany 13.3 (11.5-14.5) % Plt Count 388 (130-400) K/uL MPV 10.7 H (7.4-10.4) fL Immature Gran % (Auto) 0.5 % Neut % (Auto) 86.1 % Lymph % (Auto) 5.7 % Highland % (Auto) 6.6 % Eos % (Auto) 0.9 % Baso % (Auto) 0.2 % Neut # (Auto) 9.41 H (1.4-6.5) K/uL Lymph # (Auto) 0.62 L (1.2-3.4) K/uL Highland # (Auto) 0.72 H (0.11-0.59) K/uL Eos # (Auto) 0.10 (0-0.5) K/uL Baso # (Auto) 0.02 (0-0.2) K/uL Immature Gran # (Auto) 0.05 H (0.00-0.02) K/uL POC Sodium (135-144) mmol/L Sodium (136-145) mmol/L POC Potassium (3.3-5.0) mmol/L Potassium (3.5-5.1) mmol/L POC Chloride (101-112) mmol/L Chloride (98-107) mmol/L Carbon Dioxide (21-32) mmol/L POC Total CO2 (24-31) mmol/L Anion Gap (3-11) POC Anion Gap (16-25) mmol/L POC BUN (7-18) mg/dl BUN (7-18) mg/dl Creatinine (0.6-1.4) mg/dl POC Creatinine (0.6-1.3) mg/dl Est Cr Clr Drug Dosing ml/min Est GFR ( Amer) Est GFR (Non-Af Amer) BUN/Creatinine Ratio (10-20) Glucose (70-99) mg/dl POC Glucose (other) (70-99) mg/dl Calcium (8.5-10.1) mg/dl POC Ioniz Calcium Yaneli (1.12-1.32) mmol/l Total Bilirubin (0.2-1) mg/dl AST (15-37) U/L ALT (12-78) U/L Alkaline Phosphatase (45-117) U/L Total Protein (6.4-8.2) gm/dl Albumin (3.4-5.0) gm/dl Globulin (2.5-4.0) gm/dl Albumin/Globulin Ratio (0.9-2) Lipase (73-393) U/L TSH (0.300-4.500) uIu/ml COVID-19 Eval Order CovFluRsv at [facility] SARS-CoV-2 (PCR) NEGATIVE (Negative) Influenza Type A (PCR) Negative (Neg) Influenza Type B (PCR) Negative (Neg) RSV (RT-PCR) Negative (Neg) 06/25/20 06/25/20 Range/Units 19:35 19:52 WBC (4.8-10.8) K/uL RBC (4.7-6.1) M/uL Hgb (14.0-18.0) g/dL POC Hgb 14.6 (14.0-18.0) g/dl Hct (42-52) % POC Hct 43 (42-52) % MCV (80-100) fL MCH (25-34) pg MCHC (32-36) g/dL RDW Std Deviation (36.4-46.3) fL RDW Coeff of Brittany (11.5-14.5) % Plt Count (130-400) K/uL MPV (7.4-10.4) fL Immature Gran % (Auto) % Neut % (Auto) % Lymph % (Auto) % Highland % (Auto) % Eos % (Auto) % Baso % (Auto) % Neut # (Auto) (1.4-6.5) K/uL Lymph # (Auto) (1.2-3.4) K/uL Highland # (Auto) (0.11-0.59) K/uL Eos # (Auto) (0-0.5) K/uL Baso # (Auto) (0-0.2) K/uL Immature Gran # (Auto) (0.00-0.02) K/uL POC Sodium 136 (135-144) mmol/L Sodium 136 (136-145) mmol/L POC Potassium 4.1 (3.3-5.0) mmol/L Potassium 3.9 (3.5-5.1) mmol/L POC Chloride 98 L (101-112) mmol/L Chloride 101 (98-107) mmol/L Carbon Dioxide 26 (21-32) mmol/L POC Total CO2 27 (24-31) mmol/L Anion Gap 9.0 (3-11) POC Anion Gap 15.0 L (16-25) mmol/L POC BUN 14 (7-18) mg/dl BUN 13 (7-18) mg/dl Creatinine 1.02 (0.6-1.4) mg/dl POC Creatinine 0.9 (0.6-1.3) mg/dl Est Cr Clr Drug Dosing 93.0 ml/min Est GFR ( Amer) 98.2 Est GFR (Non-Af Amer) 84.7 BUN/Creatinine Ratio 13.2 (10-20) Glucose 112 H (70-99) mg/dl POC Glucose (other) 117 H (70-99) mg/dl Calcium 9.4 (8.5-10.1) mg/dl POC Ioniz Calcium Yaneli 1.17 (1.12-1.32) mmol/l Total Bilirubin 7.1 H (0.2-1) mg/dl AST 42 H (15-37) U/L ALT 66 (12-78) U/L Alkaline Phosphatase 355 H (45-117) U/L Total Protein 8.6 H (6.4-8.2) gm/dl Albumin 3.1 L (3.4-5.0) gm/dl Globulin 5.5 H (2.5-4.0) gm/dl Albumin/Globulin Ratio 0.6 L (0.9-2) Lipase 2505 H (73-393) U/L TSH 4.190 (0.300-4.500) uIu/ml COVID-19 Eval Order SARS-CoV-2 (PCR) (Negative) Influenza Type A (PCR) (Neg) Influenza Type B (PCR) (Neg) RSV (RT-PCR) (Neg) Administered Medications Piperacillin Sod/Tazobactam (Sod 3.375 gm/ Dextrose) 115 mls @ 30 mls/hr IV Q8H [facility]; Protocol Stop: 07/06/20 01:59 Last Admin: 06/26/20 10:41 Dose: 30 mls/hr Documented by: [id number] Infusion: 06/26/20 04:58 Dose: 0 mls/hr Documented by: [id number] Admin: 06/26/20 01:04 Dose: 30 mls/hr Documented by: [id number] Famotidine 20 mg/ Syringe 5 mls @ 2.5 mls/min IV Q12 ARIANA Stop: 07/25/20 23:41 Last Admin: 06/26/20 08:31 Dose: 2.5 mls/min Documented by: [id number] Admin: 06/26/20 01:04 Dose: 2.5 mls/min Documented by: [id number] Potassium Chloride/Sodium Chloride (Normal Saline W/20 Meq Kcl) 20 meq in 1,000 mls @ 100 mls/hr IV .Q10H ARIANA Stop: 07/26/20 04:44 Last Admin: 06/26/20 05:07 Dose: 100 mls/hr Documented by: [id number] Discontinued Medications Sodium Chloride (Nss 1000ml) 1,000 mls @ 999 mls/hr IV .Q1H1M ARIANA Stop: 06/25/20 20:15 Last Infusion: 06/25/20 21:45 Dose: 0 mls/hr Documented by: [id number] Admin: 06/25/20 20:45 Dose: 999 mls/hr Documented by: [id number] Sodium Chloride (Nss 1000ml) 1,000 mls @ 999 mls/hr IV .Q1H1M ONE Stop: 06/25/20 20:04 Last Infusion: 06/25/20 20:44 Dose: 0 mls/hr Documented by: [id number] Admin: 06/25/20 20:00 Dose: 999 mls/hr Documented by: [id number] Piperacillin Sod/Tazobactam Sod (Zosyn) 4.5 gm in 120 mls @ 240 mls/hr IV NOW ONE Stop: 06/25/20 19:33 Last Infusion: 06/25/20 20:44 Dose: 0 mls/hr Documented by: [id number] Admin: 06/25/20 20:03 Dose: 240 mls/hr Documented by: [id number] Prochlorperazine (Compazine) 2 mls @ 1 mls/min IV ONE ONE Stop: 06/25/20 22:01 Last Admin: 06/25/20 22:07 Dose: 1 mls/min Documented by: [id number] Sodium Chloride (Nss) 500 mls @ 125 mls/hr IV .Q4H ARIANA Stop: 07/25/20 21:59 Last Infusion: 06/25/20 23:56 Dose: 0 mls/hr Documented by: [id number] Admin: 06/25/20 23:05 Dose: 125 mls/hr Documented by: [id number] Ioversol (Ioversol 100ml) 82 ml IV ONCE ONE Stop: 06/25/20 20:32 Last Admin: 06/25/20 20:32 Dose: 82 ml Documented by: [id number] Ondansetron HCl (Ondansetron Inj 2 Mg/Ml 2 Ml Vial) 4 mg IV NOW STA Stop: 06/25/20 19:05 Last Admin: 06/25/20 20:01 Dose: 4 mg Documented by: [id number] Imaging Data Radiologist's Impression: Cholangiopancreatography MRI 06/25/20 21:58 MRCP CLINICAL HISTORY: Abdominal pain. Elevated bilirubin. TECHNIQUE: Utilizing a 1.5 Sandra magnet and dedicated coil, multiplanar, multiecho imaging of the upper abdomen was performed utilizing heavily T2 weighted pulsing sequences without IV contrast. COMPARISON STUDY: MRCP June 06, 2020. CT of the abdomen and pelvis June 25, 2020. FINDINGS: Note is made of a large complex fluid collection which nearly replaces the pancreatic neck, head and uncinate process. This collection measures 14.4 x 7.7 x 6.9 cm. Anteriorly, this collection does not have a well-defined wall. This is new since CT of June 08, 2020 and corresponds the collection shown on CT performed earlier today. This collection has marked mass effect upon the portosplenic confluence and distal superior mesenteric vein, suboptimally assessed on this exam. Note is made of peripancreatic infiltration and fluid. There is no pancreatic ductal dilatation. Mild dilatation of the common bile duct, measuring 7 mm is noted. No common bile duct calculi are identified. There is layering material within the gallbladder which could reflect sludge or stones. Mild gallbladder distention is noted. Is no significant gallbladder wall thickening. There is trace pericholecystic fluid. Note is made of a 1.1 cm la teral segment hepatic cyst. Dilatation of the aortic root is suboptimally assessed on this exam. The aortic root measures approximately 5 cm at the level of the sinuses of Valsalva. IMPRESSION: 1. Large complex fluid collection which nearly replaces the pancreatic neck, head and uncinate process, measuring approximately 14.4 x 7.7 x 6.9 cm. This favors an acute necrotic collection. Mass effect upon the superior mesenteric vein and portosplenic confluence which are markedly attenuated. 2. Findings consistent with severe acute/subacute pancreatitis with pancreatic necrosis involving the neck, head and uncinate process. 3. Slight dilatation of the common bile duct. No common bile duct calculi identified. 4. Layering material within the gallbladder which favor sludge although stones could appear similar. Mild gallbladder distention. 5. Dilatation of the aortic root, suboptimally assessed on this exam. Aortic root measures approximately 5 cm at the level of the sinuses of Valsalva. ACT 112: Negative or not required by law. Electronically signed by: Kumar Mccray M.D. 06/26/2020 8:20 AM Discharge Plan Visit Data Chief Complaint: Abdominal Pain Stated Complaint: ABD PAIN ED Provider: Jarod Blevins Discharge Problem: Acute pancreatitis, Hyperbilirubinemia, Pancreatic pseudocyst Patient Disposition: Admitted As Inpatient Discharge Instructions Interventions: ED Discharge Assessment Last Done: 06/25/20 23:19 Discharge Problem: Acute pancreatitis Qualifiers: Pancreatitis type: unspecified pancreatitis type Acute pancreatitis complication: unspecified Qualified Code(s): K85.90 - Acute pancreatitis without necrosis or infection, unspecified
[2020-06-25] MEDS ORDERED: PIPERACILLIN/TAZOBACTAM 4.5 GM/120 ML BAG IV ONE (19:04)
[2020-06-25] MEDS ORDERED: PIPERACILL/TAZOBAC CONSULT ACTIVE PRN ×2 (19:04→23:42)
[2020-06-25] MEDS ORDERED: SODIUM CHLORIDE 0.9% 1000ML 1,000 ML IV ONE (19:04)
[2020-06-25] MEDS ORDERED: ONDANSETRON INJ 2 MG/ML 2 ML VIAL IV STA (19:04)
[2020-06-25] MEDS ORDERED: SODIUM CHLORIDE 0.9% 1000ML 1,000 ML IV SCH (19:15)
[2020-06-25 19:57] LABS: Basophils # (auto) 0.02 K/uL (0-0.2); Basophils % (auto) 0.2 %; Eosinophils % (auto) 0.9 %; Hematocrit (blood only) 38.7 % (42-52); Hemoglobin 13.2 g/dL (14.0-18.0); Immature Granulocytes # (auto) 0.05 K/uL (0.00-0.02); Immature Granulocytes % (auto) 0.5 %; Lymphocytes # (auto) 0.62 K/uL (1.2-3.4); Lymphocytes % (auto) 5.7 %; Mean Corpuscular Hemoglobin 30.6 pg (25-34); Mean Corpuscular Hgb Conc 34.1 g/dL (32-36); Mean Corpuscular Volume 89.6 fL (80-100); Mean Platelet Volume 10.7 fL (7.4-10.4); Monocytes # (auto) 0.72 K/uL (0.11-0.59); Monocytes % (auto) 6.6 %; Neutrophils # (auto) 9.41 K/uL (1.4-6.5); Neutrophils % (auto) 86.1 %; Platelet Count 388 K/uL (130-400); RDW Coefficient of Variation 13.3 % (11.5-14.5); RDW Standard Deviation 44.1 fL (36.4-46.3); Red Blood Count 4.32 M/uL (4.7-6.1); White Blood Count 10.92 K/uL (4.8-10.8)
[2020-06-25 20:05] LABS: iSTAT Creatinine 0.9 mg/dl (0.6-1.3); iSTAT Hemoglobin 14.6 g/dl (14.0-18.0); iSTAT Ionized Calcium 1.17 mmol/l (1.12-1.32); iSTAT Potassium 4.1 mmol/L (3.3-5.0)
[2020-06-25] MEDS ORDERED: OPTIRAY 320 100ml IV ONE (20:31)
[2020-06-25 20:46] LABS: Influenza A virus by PCR Negative (Neg); Influenza B virus by PCR Negative (Neg); RSV by PCR Negative (Neg); SARS CoV2 RNA(COVID-19) InHosp NEGATIVE (Negative)
--- NOTE | 2020-06-25 20:58 | CT Scan Report ---
CT SCAN OF THE ABDOMEN AND PELVIS WITH IV CONTRAST CLINICAL HISTORY: Upper abdominal pain. Pancreatitis. Jaundice. COMPARISON STUDY: Abdominal CT dated 06/08/2020. Chest CT dated 06/05/2020. TECHNIQUE: Following the IV administration of 82 cc of Optiray 320, CT scan of the abdomen and pelvi s is performed from the lung bases to the proximal femora. Images are reviewed in the axial, sagittal , and coronal planes. IV contrast was administered without complication. A dose lowering technique wa s utilized adhering to the principles of ALARA. CT DOSE: 520.29 mGy.cm FINDINGS: Lung bases: The heart is. Normal in size and without pericardial effusion. There is bibasilar atelect asis with elevation of the right hemidiaphragm. No airspace consolidation is seen typical for pneumon ia and there is no pleural effusion. There are 2 pulmonary and pleural-based nodules in the right mid dle lobe measuring up to 6 mm seen on images #9 and #13. These are unchanged from a recent chest CT. A small hiatal hernia is noted. Liver: The contrast-enhanced liver is normal in size, contour, and attenuation. There is minimal cent ral intrahepatic biliary ductal dilatation. The hepatic veins and portal veins are patent. A 1.3 cm l eft lobe cyst is unchanged. Gallbladder: The gallbladder is distended. There is pericholecystic inflammation. Spleen: The spleen is mildly enlarged measuring 14.6 cm in length. Pancreas: There is a significant inflammatory change and stranding identified around the pancreas wit h peripancreatic fluid. The pancreatic body and tail enhance homogeneously, and the pancreatic duct i s normal in caliber. The pancreatic head and neck is largely replaced by a large, multiloculated, thi ck-walled, and peripherally enhancing fluid collection. This measures approximately 13.5 x 6.5 x 9.5 cm in aggregate dimension as seen on image #205. There is no gas within this fluid collection. A smal l contiguous loculation extends inferiorly in the right midabdomen on image #288 measuring 2.7 x 2.9 cm. This causes localized mass effect on the distal stomach and duodenum as well as the regional vess els. There is marked attenuation of the superior mesenteric vein and the splenic vein near the portos plenic confluence. The vessels likely remain patent. Adrenal glands: Unremarkable. Kidneys: The contrast enhanced kidneys are normal in size and without hydronephrosis. The kidneys enh ance symmetrically. Abdominal vasculature: The abdominal aorta is normal in course and caliber. Bowel: There is no bowel obstruction. There is mild wall thickening of the duodenum, as well as signi ficant mass effect upon the duodenum from the large pancreatic/peripancreatic fluid collection. The a ppendix is not well visualized. Peritoneum: No intraperitoneal free air is identified. There is trace pelvic ascites. There is a larg e fat-containing umbilical hernia. Lymphadenopathy: None. Pelvic viscera: The prostate gland is mildly enlarged and heterogeneous. The bladder wall appears thi ckened and trabeculated suggesting chronic outlet obstruction. There are bilateral fat-containing ing uinal hernias. Surgical clips are noted along the spermatic cord bilaterally. Skeletal structures: No lytic or blastic lesions are seen. IMPRESSION: 1. Findings are consistent with severe acute/subacute pancreatitis. 2. There is evidence of pancreatic necrosis with a large complex/multiloculated fluid collection repl acing the pancreatic head and neck as detailed above. This likely represents a pseudocyst. The steril ity of this collection cannot be assessed by CT. 3. The pancreatic body and tail enhance homogeneously. 4. The fluid collection causes significant mass effect upon the adjacent stomach and duodenum. 5. There is marked attenuation of the superior mesenteric vein and splenic vein at the portosplenic c onfluence. These vessels remain patent. 6. The gallbladder is distended and there is pericholecystic stranding. Superimposed acute cholecysti tis is not excluded. 7. There is trace pelvic ascites. 8. Pleural effusions have resolved as compared to 06/08/2020. 9. Mild splenomegaly. 10. Additional findings as above. ACT 112: Negative or not required by law. Electronically signed by: Daquan Da Silva M.D. 06/25/2020 8:57 PM
[2020-06-25 21:01] LABS: Albumin Globulin Ratio 0.6 (0.9-2); Albumin Level 3.1 gm/dl (3.4-5.0); BUN Creatinine Ratio 13.2 (10-20); Bilirubin,Total 7.1 mg/dl (0.2-1); Calcium 9.4 mg/dl (8.5-10.1); Est GFR (African American) 98.2; Est GFR (Non-African American) 84.7; Globulin 5.5 gm/dl (2.5-4.0); Potassium 3.9 mmol/L (3.5-5.1); Thyroid Stimulating Hormone 4.19 uIu/ml (0.300-4.500); Total Protein 8.6 gm/dl (6.4-8.2)
[2020-06-25] MEDS ORDERED: PROCHLORPERAZINE 2 ML IV ONE (22:00)
[2020-06-25] MEDS ORDERED: SODIUM CHLORIDE 0.9% 500 ML IV SCH (22:00)
--- NOTE | 2020-06-25 22:04 | Surgery Consultation ---
Date of Consultation June 25, 2020 Assessment & Plan (1) Acute pancreatitis: Cause of patient's pancreatitis is uncertain at this time. Recommend proceeding in the following manner: Keep patient n.p.o. as any oral intake will exacerbate his pancreatitis Provide analgesics Provide antiemetics Provide IV fluid for hydration Continue antibiotics is unclear if the fluid collection near patient's pancreatic head is sterile or infected. He has received Zosyn in the emergency department Recommend GI consultation to evaluate the patient for ERCP, endoscopic ultrasound and stenting of the biliary tree. I discussed with the patient at the present time we will not proceed with any surgical intervention due to his underlying pancreatitis. The above plan was discussed with the treating physician in the emergency department. We will continue to follow along while the patient is hospitalized History of Present Illness Reason for Consultation: Pancreatitis with concern for cholecystitis History of Present Illness This is a 50-year-old male who was recently hospitalized at [facility] from June 06 through June 11 of this year. Patient was admitted for pancreatitis with unclear etiology. Patient denies any alcohol use and during the intervention admission he had a gallbladder ultrasound that showed no evidence of cholecystitis or gallstones. He did have an MRCP which showed evidence of pancreatitis however his common bile duct was noted to be normal. He also a CT scan of the abdomen only showed findings concerning for pancreatitis. During this admission the patient had no elevation of his transaminases. At time of discharge his total bilirubin is 2.4 and his lipase was normal. His alkaline phosphatase at time of discharge was 123. He was seen by gastroenterology during this admission and as there was no clear etiology to his pancreatitis an outpatient endoscopic ultrasound was recommended. Patient has not yet had time to schedule the study. Patient presented to the emergency department today secondary to worsening fatigue. Patient notes that this has been going on for approximately 3 to 4 days. In addition he notes a weight loss of approximately 10 pounds over 2 weeks. Again he says he does not drink. In addition to the symptoms the patient has had worsening abdominal pain in his epigastric area. He says that he tried to drink some liquids along with some crackers this morning but had ensuing nausea vomiting. He denies any fevers. He denies any palliative factors other than not eating. He denies any provocative factors and notes the pain does not radiate anywhere. I did asked the patient about family history of cancer which he denies. He also denies smoking. Patient did have a colonoscopy when he was in his 40s and this was performed secondary to blood in his stool. He notes during the study they only found some polyps that this is not been problematic since. In addition to what was noted above the patient's also notes that his skin and eyes appear to be somewhat yellow. Today the emergency department the patient had labs and imaging which I independently reviewed.Patient had a CT scan of his abdomen that showed findings that were consistent with acute pancreatitis. There is evidence of pancreatic necrosis with a large complex multiloculated fluid collection nearly replacing the pancreatic head. This was felt to likely represent a pseudocyst and whether or not this collection was sterile could not be ascertained by CT. Fluid collection cause significant mass-effect on the adjacent stomach and duodenum. Patient's gallbladder was also noted to be distended with pericholecystic stranding on the study. Labs included a CBC where his white blood cell count was 10.9, hemoglobin was 13.2, and hematocrit is 14.6. Platelet count was within normal range. Chemistry profile did show his sodium, potassium, BUN, and creatinine were all within normal range. Patient was noted to have a normal calcium. Patient's total bilirubin was noted to be 7.1. His AST and ALT were 42 and 66 respectively and his alkaline phosphatase was 355. Patient's lipase was 2505. In addition the patient had a Covid test which was noted to be negative. At the time of my interview the patient was resting comfortably in bed he was in no distress. Allergies Allergy/AdvReac Type Severity Reaction Status Date / Time No Known Allergies Allergy Verified 06/25/20 20:08 Home Medications Medication Instructions Recorded Confirmed Type omeprazole 40 mg PO DAILY 06/25/20 06/25/20 History Patient History Medical History No pertinent family history No pertinent past medical history Surgical History No pertinent past surgical history Social History Smoking Status: Never smoker Hx Alcohol Use: No Hx Substance Use: No Preferred Language: Romansh Communication Ability: Effective Licensed Therapist Required: No Current Living Situation: Spouse Feels Safe at Home: Yes Assistive Devices: None Review of Systems Constitutional: + fatigue and + weight loss (As noted in the HPI); no fever and no chills Eyes: Jaundice Ear, Nose, Mouth, Throat: no ear pain Respiratory: no cough and no dyspnea Cardiovascular: no chest pain Gastrointestinal: + abdominal pain, + nausea and + vomiting Genitourinary: no dysuria Musculoskeletal: no back pain Integumentary: + change in skin color (Jaundice); no rash Neurologic: + generalized weakness Physical Exam Constitutional: + ill appearing; no acute distress Eyes: Scleral jaundice noted ENMT: Ears: no hearing impairment Neck: trachea midline Respiratory: normal respiratory effort, lungs clear to auscultation Cardiovascular: Rate/Rhythm: regular rate and regular rhythm Gastrointestinal (Abdomen): Abdomen is soft and nondistended. There is no rebound tenderness or guarding. Patient had significant tenderness with palpation in the right upper quadrant as well as epigastric areas. There is no evidence of [place] or [place] sign. Musculoskeletal: No calf tenderness Skin: + jaundice Neurologic: moves all extremities Psychiatric: Orientation: alert and oriented x 3 Affect: + flat affect Results & Data ([facility]) Vital Signs (Past 12 Hours) Vital Signs Temp Pulse Pulse Resp BP BP Pulse Ox 06/25/20 21:30 90 18 117/86 96 06/25/20 20:47 94 H 18 123/80 95 06/25/20 20:00 87 18 127/78 96 06/25/20 19:30 90 18 121/95 96 06/25/20 17:41 36.4 C L 107 H 18 129/79 96 PG Care Time/CCT Total # of Minutes Spent Total Time Spent with Patient: Total time spent is greater than 50% in coordination of care (as documented) at patient's floor/unit and/or counseling patient: Coding Level of Care Code 38746 Inpt Consult Level 5 Diagnoses Acute pancreatitis K85.90 Acute pancreatitis complication: unspecified Pancreatitis type: unspecified pancreatitis type (1) Acute pancreatitis Acute pancreatitis complication: unspecified Pancreatitis type: unspecified pancreatitis type Qualified Code(s): K85.90 - Acute pancreatitis without nec rosis or infection, unspecified
--- NOTE | 2020-06-25 22:42 | History & Physical Report ---
Date of Service June 25, 2020 Assessment & Plan (1) Acute pancreatitis: Acute/subacute pancreatitis, with pseudocyst and pancreatic necrosis- N.p.o. Admit to medical surgical floor Zosyn 4.5 g IV every 8 hours Zofran 4 mg IV every 6 hours as needed Famotidine 20 mg IV every 12 hours General surgery has been consulted by the ED, and will follow the patient. Gastroenterology has been consulted by the ED, and reportedly will attempt to place a biliary stent tomorrow. MRCP has been ordered as follow-up studies this evening Morphine sulfate 2 mg IV every 4 hours as needed severe pain NSS + KCl 20 mEq at 100 mils per hour Present on Admission?: Yes (2) Pancreatic pseudocyst: (3) Pancreatic necrosis: History of Present Illness Chief Complaint: Patient presents to the emergency department with worsening abdominal pain and nausea with generalized weakness Primary Care Provider: Dharmesh Ryan The patient is a 50-year-old male most recently discharged from [facility] after admission from 06/06-06/11 for pancreatitis. He was feeling somewhat improved, but over the last 6 days has had progressively worsening abdominal discomfort and nausea. CT scan in the emergency department showed severe acute/subacute pancreatitis, with evidence of pancreatic necrosis with a large complex/multiloculated fluid collection replacing the pancreatic head and neck likely representing a pseudocyst. The fluid collection was causing significant mass-effect upon the adjacent stomach and duodenum, and there was marked attenuation of the superior mesenteric vein and splenic vein at the portal splenic confluence, but these veins remain patent. The gallbladder is distended and there is pericholecystic stranding, with a superimposed acute cholecystitis not excluded. Allergies Allergy/AdvReac Type Severity Reaction Status Date / Time No Known Allergies Allergy Verified 06/25/20 20:08 Home Medications Medication Instructions Recorded Confirmed Type omeprazole 40 mg PO DAILY 06/25/20 06/25/20 History Past Med/Surg History Medical History No pertinent family history No pertinent past medical history Surgical History No pertinent past surgical history Social History Smoking Status: Never smoker Second Hand Exposure: No; Do You Dip or Chew Tobacco: No; Hx Alcohol Use: No Hx Substance Use: No Preferred Language: Slovenian Communication Ability: Effective Forest Officer Required: No Beliefs That Will Affect Care: None Current Living Situation: Spouse Other Information That Helps Us Care for You: No Feels Safe at Home: Yes Safety Concerns: Feels Safe At This Time Assistive Devices: None Review of Systems Review of Systems: The patient denies chest pain, palpitations, cough, lower extremity swelling, sore throat, fevers, chills, sweats, vomiting, blood in urine or stool, dysuria, urinary frequency or urgency, lightheadedness, dizziness, headache, memory loss, loss of consciousness, rash, abnormal bruising or bleeding, imbalance, focal or generalized weakness, numbness or tingling in arms or legs, generalized arthralgias or myalgias, neck pain, or night sweats. The review of systems is otherwise negative other than for that already noted above, and at least 10 systems have been reviewed. Physical Exam Physical Exam: The patient is awake, alert and oriented 3, well developed and well nourished, normocephalic and atraumatic, lying in bed and in no acute di stress. HEENT--PERRL, EOMI, mucous membranes and oropharynx dry. Neck--supple. No JVD. No bruits. Thyroid normal, trachea midline, no adenopathy. Heart--normal S1 and S2. No murmurs, rubs or gallops. Lungs--clear bilaterally, no respiratory distress, no accessory muscle use. Abdomen--normal bowel sounds and soft. Epigastric and right upper quadrant tenderness. Mildly distended. Extremities--no cyanosis or clubbing. No edema. Dermatologic--normal skin turgor, normal color, no abnormal lymph nodes, no rash. Neurologic--cranial nerves II through XII grossly intact. Rheumatologic--normal range of motion. Psychiatric--normal affect. Results & Data Results & Data ([facility]) Vital Signs (Past 12 Hours) Vital Signs Temp Pulse Pulse Resp BP BP Pulse Ox 06/25/20 22:02 90 18 130/81 96 06/25/20 21:30 90 18 117/86 96 06/25/20 20:47 94 H 18 123/80 95 06/25/20 20:00 87 18 127/78 96 06/25/20 19:30 90 18 121/95 96 06/25/20 17:41 97.5 F L 107 H 18 129/79 96 Laboratory Results Laboratory Results WBC 10.92 K/uL (4.8-10.8) H 06/25/20 19:35 RBC 4.32 M/uL (4.7-6.1) L 06/25/20 19:35 Hgb 13.2 g/dL (14.0-18.0) L 06/25/20 19:35 POC Hgb 14.6 g/dl (14.0-18.0) 06/25/20 19:52 Hct 38.7 % (42-52) L 06/25/20 19:35 POC Hct 43 % (42-52) 06/25/20 19:52 MCV 89.6 fL (80-100) 06/25/20 19:35 MCH 30.6 pg (25-34) 06/25/20 19:35 MCHC 34.1 g/dL (32-36) 06/25/20 19:35 RDW Std Deviation 44.1 fL (36.4-46.3) 06/25/20 19:35 RDW Coeff of Brittany 13.3 % (11.5-14.5) 06/25/20 19:35 Plt Count 388 K/uL (130-400) 06/25/20 19:35 MPV 10.7 fL (7.4-10.4) H 06/25/20 19:35 Immature Gran % (Auto) 0.5 % 06/25/20 19:35 Neut % (Auto) 86.1 % 06/25/20 19:35 Lymph % (Auto) 5.7 % 06/25/20 19:35 [place] % (Auto) 6.6 % 06/25/20 19:35 Eos % (Auto) 0.9 % 06/25/20 19:35 Baso % (Auto) 0.2 % 06/25/20 19:35 Neut # (Auto) 9.41 K/uL (1.4-6.5) H 06/25/20 19:35 Lymph # (Auto) 0.62 K/uL (1.2-3.4) L 06/25/20 19:35 [place] # (Auto) 0.72 K/uL (0.11-0.59) H 06/25/20 19:35 Eos # (Auto) 0.10 K/uL (0-0.5) 06/25/20 19:35 Baso # (Auto) 0.02 K/uL (0-0.2) 06/25/20 19:35 Immature Gran # (Auto) 0.05 K/uL (0.00-0.02) H 06/25/20 19:35 POC Sodium 136 mmol/L (135-144) 06/25/20 19:52 Sodium 136 mmol/L (136-145) 06/25/20 19:35 POC Potassium 4.1 mmol/L (3.3-5.0) 06/25/20 19:52 Potassium 3.9 mmol/L (3.5-5.1) 06/25/20 19:35 POC Chloride 98 mmol/L (101-112) L 06/25/20 19:52 Chloride 101 mmol/L (98-107) 06/25/20 19:35 Carbon Dioxide 26 mmol/L (21-32) 06/25/20 19:35 POC Total CO2 27 mmol/L (24-31) 06/25/20 19:52 Anion Gap 9.0 (3-11) 06/25/20 19:35 POC Anion Gap 15.0 mmol/L (16-25) L 06/25/20 19:52 POC BUN 14 mg/dl (7-18) 06/25/20 19:52 BUN 13 mg/dl (7-18) 06/25/20 19:35 Creatinine 1.02 mg/dl (0.6-1.4) 06/25/20 19:35 POC Creatinine 0.9 mg/dl (0.6-1.3) 06/25/20 19:52 Est Cr Clr Drug Dosing 93.0 ml/min 06/25/20 19:35 Est GFR ( Amer) 98.2 06/25/20 19:35 Est GFR (Non-Af Amer) 84.7 06/25/20 19:35 BUN/Creatinine Ratio 13.2 (10-20) 06/25/20 19:35 Glucose 112 mg/dl (70-99) H 06/25/20 19:35 POC Glucose (other) 117 mg/dl (70-99) H 06/25/20 19:52 Calcium 9.4 mg/dl (8.5-10.1) 06/25/20 19:35 POC Ioniz Calcium Yaneli 1.17 mmol/l (1.12-1.32) 06/25/20 19:52 Total Bilirubin 7.1 mg/dl (0.2-1) H 06/25/20 19:35 AST 42 U/L (15-37) H 06/25/20 19:35 ALT 66 U/L (12-78) 06/25/20 19:35 Alkaline Phosphatase 355 U/L (45-117) H 06/25/20 19:35 Total Protein 8.6 gm/dl (6.4-8.2) H 06/25/20 19:35 Albumin 3.1 gm/dl (3.4-5.0) L 06/25/20 19:35 Globulin 5.5 gm/dl (2.5-4.0) H 06/25/20 19:35 Albumin/Globulin Ratio 0.6 (0.9-2) L 06/25/20 19:35 Lipase 2505 U/L (73-393) H 06/25/20 19:35 TSH 4.190 uIu/ml (0.300-4.500) 06/25/20 19:35 COVID-19 Eval Order CovFluRsv at [facility] 06/25/20 19:25 SARS-CoV-2 (PCR) NEGATIVE (Negative) 06/25/20 19:25 Influenza Type A (PCR) Negative (Neg) 06/25/20 19:25 Influenza Type B (PCR) Negative (Neg) 06/25/20 19:25 RSV (RT-PCR) Negative (Neg) 06/25/20 19:25 Impressions Abdomen/Pelvis CT 06/25/20 20:03 CT SCAN OF THE ABDOMEN AND PELVIS WITH IV CONTRAST CLINICAL HISTORY: Upper abdominal pain. Pancreatitis. Jaundice. COMPARISON STUDY: Abdominal CT dated 06/08/2020. Chest CT dated 06/05/2020. TECHNIQUE: Following the IV administration of 82 cc of Optiray 320, CT scan of the abdomen and pelvis is performed from the lung bases to the proximal femora. Images are reviewed in the axial, sagittal, and coronal planes. IV contrast was administered without complication. A dose lowering technique was utilized adhering to the principles of ALARA. CT DOSE: 520.29 mGy.cm FINDINGS: Lung bases: The heart is. Normal in size and without pericardial effusion. There is bibasilar atelectasis with elevation of the right hemidiaphragm. No airspace consolidation is seen typical for pneumonia and there is no pleural effusion. There are 2 pulmonary and pleural-based nodules in the right middle lobe measuring up to 6 mm seen on images #9 and #13. These are unchanged from a recent chest CT. A small hiatal hernia is noted. Liver: The contrast-enhanced liver is normal in size, contour, and attenuation. There is minimal central intrahepatic biliary ductal dilatation. The hepatic veins and portal veins are patent. A 1.3 cm left lobe cyst is unchanged. Gallbladder: The gallbladder is distended. There is pericholecystic inflammation. Spleen: The spleen is mildly enlarged measuring 14.6 cm in length. Pancreas: There is a significant inflammatory change and stranding identified around the pancreas with peripancreatic fluid. The pancreatic body and tail enhance homogeneously, and the pancreatic duct is normal in caliber. The pancreatic head and neck is largely replaced by a large, multiloculated, thick- walled, and peripherally enhancing fluid collection. This measures approximately 13.5 x 6.5 x 9.5 cm in aggregate dimension as seen on image #205. There is no gas within this fluid collection. A small contiguous loculation extends inferiorly in the right midabdomen on image #288 measuring 2.7 x 2.9 cm. This causes localized mass effect on the distal stomach and duodenum as well as the regional vessels. There is marked attenuation of the superior mesenteric vein and the splenic vein near the portosplenic confluence. The vessels likely remain patent. Adrenal glands: Unremarkable. Kidneys: The contrast enhanced kidneys are normal in size and without hydronephrosis. The kidneys enhance symmetrically. Abdominal vasculature: The abdominal aorta is normal in course and caliber. Bowel: There is no bowel obstruction. There is mild wall thickening of the duodenum, as well as significant mass effect upon the duodenum from the large pancreatic/peripancreatic fluid collection. The appendix is not well visualized. Peritoneum: No intraperitoneal free air is identified. There is trace pelvic ascites. There is a large fat-containing umbilical hernia. Lymphadenopathy: None. Pelvic viscera: The prostate gland is mildly enlarged and heterogeneous. The bladder wall appears thickened and trabeculated suggesting chronic outlet obstruction. There are bilateral fat-containing inguinal hernias. Surgical clips are noted along the spermatic cord bilaterally. Skeletal structures: No lytic or blastic lesions are seen. IMPRESSION: 1. Findings are consistent with severe acute/subacute pancreatitis. 2. There is evidence of pancreatic necrosis with a large complex/multiloculated fluid collection replacing the pancreatic head and neck as detailed above. This likely represents a pseudocyst. The sterility of this collection cannot be assessed by CT. 3. The pancreatic body and tail enhance homogeneously. 4. The fluid collection causes significant mass effect upon the adjacent stomach and duodenum. 5. There is marked attenuation of the superior mesenteric vein and splenic vein at the portosplenic confluence. These vessels remain patent. 6. The gallbladder is distended and there is pericholecystic stranding. Superimposed acute cholecystitis is not excluded. 7. There is trace pelvic ascites. 8. Pleural effusions have resolved as compared to 06/08/2020. 9. Mild splenomegaly. 10. Additional findings as above. ACT 112: Negative or not required by law. Electronically signed by: Daquan Da Silva M.D. 06/25/2020 8:57 PM Code Status & VTE Plan Code Status Full code VTE Prophylaxis Plan VTE Prophylaxis will be ordered: Yes PG Care Time/CCT Total # of Minutes Spent Total Time Spent with Patient: Total time spent is greater than 50% in coordination of care (as documented) at patient's floor/unit and/or counseling patient: Coding Level of Care Code 39135 Initial Inpt Care Lvl 3 Diagnoses Acute pancreatitis K85.90 Acute pancreatitis complication: unspecified Pancreatitis type: unspecified pancreatitis type Pancreatic pseudocyst K86.3 Pancreatic necrosis K86.89 (1) Acute pancreatitis Acute pancreatitis complication: unspecified Pancreatitis type: unspecified pancreatitis type Qualified Code(s): K85.90 - Acute pancreatitis without necrosis or infection, unspecified
[2020-06-25] MEDS ORDERED: ONDANSETRON INJ 2 MG/ML 2 ML VIAL IV PRN (23:42)
[2020-06-25] MEDS ORDERED: MoRPHine SULFATE 2 MG/ML CARP IV PRN (23:42)
[2020-06-26] MEDS: FAMOTIDINE 20 MG in SYRINGE 3 ML IV SCH ×3 (01:04→20:41)
[2020-06-26] MEDS: PIPERACILLIN/TAZOBACTAM 3.375 GM in DEXTROSE 5% 100 ML IV SCH ×3 (01:04→18:37)
[2020-06-26] MEDS: NSS + 20MEQ KCL 20 MEQ/1,000 ML BAG IV SCH ×2 (05:07→14:44)
--- NOTE | 2020-06-26 08:21 | Magnetic Resonance Report ---
MRCP CLINICAL HISTORY: Abdominal pain. Elevated bilirubin. TECHNIQUE: Utilizing a 1.5 Sandra magnet and dedicated coil, multiplanar, multiecho imaging of the [facility] er abdomen was performed utilizing heavily T2 weighted pulsing sequences without IV contrast. COMPARISON STUDY: MRCP June 06, 2020. CT of the abdomen and pelvis June 25, 2020. FINDINGS: Note is made of a large complex fluid collection which nearly replaces the pancreatic neck, head and uncinate process. This collection measures 14.4 x 7.7 x 6.9 cm. Anteriorly, this collection does not have a well-defined wall. This is new since CT of June 08, 2020 and corresponds the collec tion shown on CT performed earlier today. This collection has marked mass effect upon the portospleni c confluence and distal superior mesenteric vein, suboptimally assessed on this exam. Note is made of peripancreatic infiltration and fluid. There is no pancreatic ductal dilatation. Mild dilatation of the common bile duct, measuring 7 mm is noted. No common bile duct calculi are identified. There is l ayering material within the gallbladder which could reflect sludge or stones. Mild gallbladder disten tion is noted. Is no significant gallbladder wall thickening. There is trace pericholecystic fluid. N ote is made of a 1.1 cm lateral segment hepatic cyst. Dilatation of the aortic root is suboptimally a ssessed on this exam. The aortic root measures approximately 5 cm at the level of the sinuses of Vals carrillo. IMPRESSION: 1. Large complex fluid collection which nearly replaces the pancreatic neck, head and uncinate proces s, measuring approximately 14.4 x 7.7 x 6.9 cm. This favors an acute necrotic collection. Mass effect upon the superior mesenteric vein and portosplenic confluence which are markedly attenuated. 2. Findings consistent with severe acute/subacute pancreatitis with pancreatic necrosis involving the neck, head and uncinate process. 3. Slight dilatation of the common bile duct. No common bile duct calculi identified. 4. Layering material within the gallbladder which favor sludge although stones could appear similar. Mild gallbladder distention. 5. Dilatation of the aortic root, suboptimally assessed on this exam. Aortic root measures approximat miguelina 5 cm at the level of the sinuses of Valsalva. ACT 112: Negative or not required by law. Electronically signed by: Kumar Mccray M.D. 06/26/2020 8:20 AM
--- NOTE | 2020-06-26 10:43 | Surgery Progress Note ---
Date of Service June 26, 2020 Assessment & Plan (1) Pancreatic pseudocyst: pancreatitis with developing pseudocyst. ? etiology clinically stable. ? if GI can place stents here we could do cystjejunostomy here in 6 weeks or so if still indicated. will continue to follow closely and await GI consult. (2) Pancreatic necrosis: Admission and Anticipated Discharge Date Admission Date: June 25, 2020 Subjective pt seen. still with some upper abdominal "pressure" and discomfort but improved from yesterday. no new symptoms Physical Exam Constitutional: WD/WN, vitals as above no acute distress and not ill appearing Eyes: PERRL, conjunctivae normal, anicteric sclerae EOM intact bilaterally ENMT: external ear and nose normal, oropharynx normal Ears: no hearing imp airment Neck: trachea midline, no thyromegaly Respiratory: normal respiratory effort; no respiratory distress and does not use accessory muscles Cardiovascular: Rate/Rhythm: regular rate and regular rhythm Gastrointestinal (Abdomen): soft. +epigastric/RUQ ttp. no peritoneal signs. Skin: no rashes, warm and dry Psychiatric: Orientation: alert, oriented x 3 and cooperative Results & Data ([facility]) Vital Signs (Past 12 Hours) Vital Signs Temp Pulse Pulse Resp BP Pulse Ox 06/26/20 07:52 37.5 C 96 H 18 126/85 94 06/25/20 23:35 37.6 C H 97 H 16 129/78 93 06/25/20 23:02 96 H 18 135/89 95 PG Care Time/CCT Total # of Minutes Spent Total Time Spent with Patient: Total time spent is greater than 50% in coordination of care (as documented) at patient's floor/unit and/or counseling patient: Coding Level of Care Code 91529 Subseq Hosp Care Lvl 3 Diagnoses Pancreatic pseudocyst K86.3 Pancreatic necrosis K86.89
--- NOTE | 2020-06-26 13:20 | Consultation Report ---
DATE OF CONSULTATION: 06/26/2020 GASTROINTESTINAL CONSULTATION NOTE REASON FOR EVALUATION: Pancreatic pseudocyst with jaundice. HISTORY OF PRESENT ILLNESS: The patient is a 50-year-old hospitalized on 06/06 with acute pancreatitis. After an extensive evaluation, no specific etiology was found for his pancreatitis. He was eventually able to be discharged about 5 or 6 days later. Over the last 48 hours, the patient has developed increasing epigastric pain. His p.o. intake has been diminished over the last few days and he has been feeling somewhat weak. He was seen by his primary care physician yesterday and was noted to be jaundiced with a bilirubin of 7 and was referred for admission. MRI and CT of the abdomen both show a 14 cm complex pancreatic pseudocyst in the head of the pancreas impinging on the posterior wall of the stomach and bile duct. He has been started on IV Zosyn and arrangements are being made for him to be transferred to [place] for potential endoscopic drainage through the stomach wall. HOME MEDICATIONS: Omeprazole. ALLERGIES: None. FAMILY HISTORY: Noncontributory. PHYSICAL EXAMINATION: GENERAL: The patient appears in no acute distress. VITAL SIGNS: Normal. He is afebrile. ABDOMEN: Shows some firmness in the right upper quadrant with tenderness in this area. IMPRESSION AND PLAN: The patient has an enlarging complex pancreatic pseudocyst following acute pancreatitis little over 2 weeks ago. There is a concern that this could be developing an infection with a white count of 10.92 and he has been started on antibiotics and arrangements are in the process for him to be transferred to [place] for endoscopic drainage of the cyst. In the meantime, [place] has requested nasojejunal feedings and this is yet to be initiated. We will follow the patient during his hospital stay.
--- NOTE | 2020-06-26 14:54 | Hospitalist Progress Note ---
Date of Service June 26, 2020 Assessment & Plan (1) Acute pancreatitis: Acute/subacute pancreatitis, with pseudocyst and pancreatic necrosis. - Continue Zosyn - NPO except sips/chips/meds -> Attempting to obtain [place] access to initiate feedings per [facility] - Pain and nausea control PRN - [facility] consulted - Have discussed several times with him today. Plan for transfer when [place] has a bed available for endoscopic intervention. Pushing images (CT a/p and MRCP) to [place] today. (2) Pancreatic pseudocyst: MRCP on 06/25 showed "large complex fluid collection which nearly replaces the pancreatic neck, head and uncinate process, measuring approximately 14.4 x 7.7 x 6.9 cm." - Avoid oral feeding as this can cause it to enlarge. - As above (3) Pancreatic necrosis: As above (4) DVT prophylaxis: SCDs - Low DVT risk per admission calculator Admission and Anticipated Discharge Date Admission Date: June 25, 2020 Subjective Feeling some better than yesterday. Still with some nausea (but no emesis) and general fatigue. Reports no fevers/chills, chest pain, shortness of breath, or vomiting. Physical Exam Constitutional: WD/WN, vitals as above Eyes: EOM intact bilaterally; no conjunctival abnormality ENMT: external ear and nose normal, oropharynx normal Neck: trachea midline, no thyromegaly normal visual inspection Respiratory: normal respiratory effort, lungs clear to auscultation no respiratory distress Cardiovascular: RRR, no murmur, no edema Gastrointestinal (Abdomen): Inspection/Auscultation: abdomen normal to inspection; abdomen not distended Musculoskeletal: no cyanosis or clubbing, extremities motor strength 5/5 Skin: no rashes, warm and dry Neurologic: moves all extremities and awake Psychiatric: Orientation: alert, oriented to person and cooperative Results & Data Results & Data ([facility]) Vital Signs (Past 12 Hours) Vital Signs Temp Pulse Resp BP Pulse Ox 06/26/20 07:52 37.5 C 96 H 18 126/85 94 PG Care Time/CCT Total # of Minutes Spent Total Time Spent with Patient: Total time spent is greater than 50% in coordination of care (as documented) at patient's floor/unit and/or counseling patient: Coding Level of Care Code 61070 Subseq Hosp Care Lvl 3 Diagnoses Acute pancreatitis K85.90 Acute pancreatitis complication: unspecified Pancreatitis type: unspecified pancreatitis type Pancreatic pseudocyst K86.3 Pancreatic necrosis K86.89 DVT prophylaxis Z29.9 Time Spent (min) 35 (1) Acute pancreatitis Acute pancreatitis complication: unspecified Pancreatitis type: unspecified pancreatitis type Qualified Code(s): K85.90 - Acute pancreatitis without necrosis or infection, unspecified
--- NOTE | 2020-06-26 17:03 | Operative Report (OR) ---
DATE OF OPERATION: 06/26/2020 PROCEDURE: Placement of a nasojejunal feeding tube. The patient had a [place] feeding tube placed into the right naris at bedside. There was extra tubing allowed as the tube was passed, so that it would eventually by contractility go from the stomach into the small intestine. The tube was taped in place and the patient tolerated the procedure well. A KUB x-ray was ordered following the procedure to check the tube position. It is expected that over the next several hours the tube will hopefully advance into the small intestine. I attest to the content of the Intraoperative Record and any orders documented therein. Any exception s are noted below.
--- NOTE | 2020-06-26 17:20 | XRay Report ---
KUB HISTORY: Check [place] tube position COMPARISON: Abdomen and pelvis CT 06/25/2020. FINDINGS: No dilated loops of bowel to suggest an obstruction. The tip of the feeding tube terminates in a postpyloric position and likely at the duodenal bulb. No renal calculi. No ureteral calculi. N o pneumoperitoneum or pneumatosis. IMPRESSION: The tip of the feeding tube terminates in a postpyloric position and likely at the duodenal bulb. ACT 112: Negative or not required by law. Electronically signed by: Dilshad Miles M.D. 06/26/2020 5:18 PM
--- NOTE | 2020-06-26 19:00 | Discharge Summary ---
Date of Service June 26, 2020 Admission HPI Per Admitting Provider The patient is a 50-year-old male most recently discharged from [facility] after admission from 06/06-06/11 for pancreatitis. He was feeling somewhat improved, but over the last 6 days has had progressively worsening abdominal discomfort and nausea. CT scan in the emergency department showed severe acute/subacute pancreatitis, with evidence of pancreatic necrosis with a large complex/multiloculated fluid collection replacing the pancreatic head and neck likely representing a pseudocyst. The fluid collection was causing significant mass-effect upon the adjacent stomach and duodenum, and there was marked atten uation of the superior mesenteric vein and splenic vein at the portal splenic confluence, but these veins remain patent. The gallbladder is distended and there is pericholecystic stranding, with a superimposed acute cholecystitis not excluded. Principal Diagnosis Pancreatic pseudocyst Discharge Exam Constitutional WD/WN, vitals as above Eyes EOM intact bilaterally; no conjunctival abnormality ENMT external ear and nose normal, oropharynx normal Neck trachea midline, no thyromegaly normal visual inspection Respiratory normal respiratory effort, lungs clear to auscultation no respiratory distress Cardiovascular RRR, no murmur, no edema Gastrointestinal (Abdomen) Inspection/Auscultation: abdomen normal to inspection; abdomen not distended Musculoskeletal no cyanosis or clubbing, extremities motor strength 5/5 Skin no rashes, warm and dry Neurologic moves all extremities and awake Psychiatric Orientation: alert, oriented to person and cooperative Discharge Data Allergies Allergy/AdvReac Type Severity Reaction Status Date / Time No Known Allergies Allergy Verified 06/25/20 20:08 Consultations 06/25/20 21:58 Consult General Surgery Stat ED Decision to Admit Stat 06/26/20 09:58 Consult Gastroenterology Routine Ordered Studies 06/25/20 20:03 CT abd pelvis IV con only Stat 06/25/20 21:58 MR MRCP Stat Hospital Course (1) Acute pancreatitis: Acute/subacute pancreatitis, with pseudocyst and pancreatic necrosis. - Continue Zosyn - NPO except sips/chips/meds -> Attempting to obtain [place] access to initiate feedings per [facility] - Pain and nausea control PRN - [facility] consulted - Have discussed several times with him today. Plan for transfer when [facility] has a bed available for endoscopic intervention. Pushing images (CT a/p and MRCP) to [facility] today. - NG placed by Dr. Mccabe. Was meant to be nasojejunal, but ends in the duodenal bulb per KUB. Will need to be repositioned prior to use, but he is being transferred at this time. (2) Pancreatic pseudocyst: MRCP on 06/25 showed "large complex fluid collection which nearly replaces the pancreatic neck, head and uncinate process, measuring approximately 14.4 x 7.7 x 6.9 cm." - Avoid oral feeding as this can cause it to enlarge. - As above (3) Pancreatic necrosis: As above (4) DVT prophylaxis: SCDs - Low DVT risk per admission calculator Total Time Total Time Spent Total Time Spent (In Minutes): 35 Discharge Plan Discharge Items Patient Disposition: Transfer Acute Care Hospital Reason For Visit: PANCREATITIS, PSEUDOCYST Discharge Diagnosis: Pancreatic pseudocyst Activity: Resume your previous activity Non-emergency contact: Primary Care Provider Call non-emergency contact if: your symptoms worsen Follow-up/Referrals: Dharmesh Ryan [Primary Care Provider] - Diet: Nothing by Mouth Addtl Attending Provider Instructions: Admitted to the hospital with continued weakness, nausea, and fatigue. Found to have a large pancreatic pseudocyst. Plan for transfer to [place] for intervention per local GI attending, Wagner Mccabe. Started on Zosyn for concern for infection of pseudocyst. Pending Studies at Discharge: No Stand-Alone Forms: [facility] Skilled Items Patient informed of condition?: Yes DNR: No Discharge Level of Care: Other Communicable Disease: No Discharge Prognosis: Stable Lines: Peripheral IV Urinary Catheter: No Medications and DC Order Prescriptions: New Piperacill/Tazobac Consult [Consult] 1 dose Not Applicable UD PRNQty: 0 RF: 0 Continued omeprazole 40 mg capsule,delayed release(DR/EC) 40 mg PO DAILY RF: 0 Discharge Orders: Discharge Order (Routine); Ordered 06/26/20 Ordered By: Lazaro Gtz Admission Data Admit Date/Time: 06/25/20 22:41 Attending Provider: Lazaro Gtz Admit Provider: Ar Hoyt Primary Care Provider: Dharmesh Ryan Other Providers: Roel Watson ; Lazaro Gtz ; Wagner Mccabe Coding Level of Care Code D/C Day Management >30 mins Diagnoses Acute pancreatitis K85.90 Acute pancreatitis complication: unspecified Pancreatitis type: unspecified pancreatitis type Pancreatic pseudocyst K86.3 Pancreatic necrosis K86.89 DVT prophylaxis Z29.9
--- NOTE | 2020-06-27 06:08 | Electrocardiogram Report ---
Test Reason : Blood Pressure : / mmHG Vent. Rate : 099 BPM Atrial Rate : 099 BPM P-R Int : 158 ms QRS Dur : 088 ms QT Int : 338 ms P-R-T Axes : 012 -41 020 degrees QTc Int : 433 ms Normal sinus rhythm Left axis deviation Minimal voltage criteria for LVH, may be normal variant Anterior infarct (cited on or before 25-JUN-2020) Abnormal ECG When compared with ECG of 05-JUN-2020 20:27, Vent. rate has increased BY 43 BPM Questionable change in initial forces of Anteroseptal leads Confirmed by Mahendra Menendez ([id number]) on 06/27/2020 6:07:48 AM Referred By: REFERRED SELF Confirmed By:Mahendra Menendez
== END 2020-06-27 00:23 | disposition short-term general hospital (02) | DRG 438 ==
LOC: ED 17:38 → 3W 22:41 → SUATTDRO 22:41 → 3W 23:19

== ENCOUNTER 2021-01-30 12:02 | Inpatient (IN) ==
[2021-01-30] MEDS ORDERED: ONDANSETRON INJ 2 MG/ML 2 ML VIAL IV STA (12:46)
[2021-01-30] MEDS ORDERED: SODIUM CHLORIDE 0.9% 500 ML IV STA (12:46)
[2021-01-30 13:31] LABS: Basophils # (auto) 0.01 K/uL (0-0.2); Basophils % (auto) 0.1 %; Eosinophils # (auto) 0.05 K/uL (0-0.5); Eosinophils % (auto) 0.4 %; Hematocrit (blood only) 46.6 % (42-52); Immature Granulocytes # (auto) 0.04 K/uL (0.00-0.02); Immature Granulocytes % (auto) 0.3 %; Lymphocytes # (auto) 0.85 K/uL (1.2-3.4); Lymphocytes % (auto) 7.1 %; Mean Corpuscular Hemoglobin 30.6 pg (25-34); Mean Corpuscular Hgb Conc 34.3 g/dL (32-36); Mean Corpuscular Volume 89.1 fL (80-100); Mean Platelet Volume 11.5 fL (7.4-10.4); Monocytes # (auto) 0.65 K/uL (0.11-0.59); Monocytes % (auto) 5.4 %; Neutrophils # (auto) 10.43 K/uL (1.4-6.5); Neutrophils % (auto) 86.7 %; Platelet Count 115 K/uL (130-400); RDW Coefficient of Variation 13.1 % (11.5-14.5); Red Blood Count 5.23 M/uL (4.7-6.1); White Blood Count 12.03 K/uL (4.8-10.8)
[2021-01-30] MEDS ORDERED: ACETAMINOPHEN 1,000 MG/100 ML VIAL IV STA (13:39)
[2021-01-30] MEDS ORDERED: SODIUM CHLORIDE 0.9% 1000ML 1,000 ML IV ONE ×2 (13:39→14:41)
--- NOTE | 2021-01-30 13:54 | Emergency Department Note ---
Impression & Plan Acute pancreatitis, Dilated aortic root ED Provider Note CHIEF COMPLAINT: Epigastric and mid abdominal pain HISTORY OF PRESENTING ILLNESS: This is a 51-year-old male who presents to the emergency department by private vehicle with complaint of sudden onset of epigastric and mid abdominal pain that started this morning around 8 AM. Patient states that he got up like usual around 4:30 AM and ate his usual breakfast around 5 AM. He states he was feeling fine at work until around 8 AM when his symptoms started. He states the pain starts in his bellybutton region and radiates up towards the top of his abdomen and spreads out across the upper abdomen, the pain is sharp and severe, and he rates the pain/10. He did not try anything for the pain. He notes a history of pancreatitis and states that this feels similar to when he had that about 8 months ago. He does note that he had a pancreatic pseudocyst and required a stent at the time which has since been removed. He denies alcohol use or abuse and states that the pancreatitis was of unknown cause. He denies any shortness of breath, palpitations, dizziness or syncope, nausea, vomiting, or sweats. He denies any history of heart disease and is not a smoker. REVIEW OF SYSTEMS: A complete 10 point review of systems was reviewed with the patient with pertinent positives and negatives as per history of present illness. All else were negative. PAST MEDICAL HISTORY: History of pancreatitis and pancreatic pseudocyst SOCIAL HISTORY: Lives at home, he denies tobacco use ALLERGIES: No known allergies PHYSICAL EXAM: CONSTITUTIONAL: Pleasant and cooperative. Nontoxic-appearing and in no acute distress, but appears uncomfortable from pain. Mildly dehydrated, but otherwise well appearing and well nourished. HEENT: Normocephalic, atraumatic. NECK: Supple, full active range of motion without discomfort. RESPIRATORY: Clear to auscultation bilaterally with no wheezing, crackles, rhonchi or stridor. Equal expansion bilaterally. CARDIOVASCULAR: Regular rate and rhythm with no murmurs, rubs or gallops. Normal peripheral perfusion. No edema. GASTROINTESTINAL: Diffuse tenderness in the upper abdomen, most tender in the epigastric and left upper quadrant extending down to about the periumbilical region. Small umbilical hernia that is reproducible. No tenderness in the lower abdomen. No rebound tenderness or guarding. Abdomen is soft and nondistended. No palpable masses or HSM. Bowel sounds present in all quadrants. No CVA tenderness bilaterally. MUSCULOSKELETAL: Full range of motion of all joints without discomfort. INTEGUMENTARY: No rash or other significant dermatologic conditions noted. NEUROLOGIC: Alert and oriented X 4 with normal affect. Normal strength and sensation in all 4 extremities. Normal speech. Normal gait observed. ED COURSE AND MEDICAL DECISION MAKING: CC: Patient presenting with complaint of epigastric and mid abdominal pain DIFFERENTIAL DIAGNOSIS: Includes, but not limited to pancreatitis, biliary pathology, peptic ulcer disease, infections, small bowel obstruction, aortic pathology, inflammatory bowel disease, hernia, volvulus, constipation, as well as other pathologies. INTERPRETATION OF LABS: Mild leukocytosis, no anemia, mild thrombocytopenia, no significant electrolyte abnormalities, normal renal function, normal liver enzymes. Lipase is elevated. Troponin undetectable. UA negative. COVID-19 negative. EKG: Shows normal sinus rhythm with a rate of 62 bpm, left axis deviation, otherwise normal intervals, no ST elevation or depression, no ectopy, ventr icular rate has decreased by 37 bpm but no other significant changes when compared to previous EKG from 06/25/2020 by my interpretation. MEDICATION RECONCILIATION: I attest that I have personally reviewed the patient's current medication list. INITIAL VITAL SIGNS REVIEW: I reviewed the patient's initial vital signs and interpret them as follows: T: Afebrile; BP: Hypertensive; HR: Within normal limits; RR: Within normal limits; Pulse Ox: Within normal limits on room air. MDM SUMMARY: Patient was evaluated at bedside, history and physical exam performed. Patient is alert and oriented, in no acute distress, resting calmly in stretcher. He does appear uncomfortable and is mildly dehydrated clinically. He is afebrile. Abdomen is tender to palpation across the upper abdomen, most tender epigastric and left upper quadrant, but no acute abdomen. Cardiac monitoring: An order was placed for continuous cardiac monitoring. The monitor shows a rate of 60 bpm with normal sinus rhythm. EKG was reviewed and did not show any acute ischemic changes. Initial orders were placed under critical pathways for labs and urinalysis, these results are pending. Additional orders were placed IV fluid bolus for hydration, IV Tylenol for pain (patient declined narcotics), troponin, and CT abdomen/pelvis evaluate for abdominal pain. Patient discussed with Dr. Ghotra, who agrees with my assessment, plan, and disposition. Labs and imaging reviewed labs were notable for mild leukocytosis and an elevated lipase concerning for pancreatitis. Troponin was negative. No UTI. CT imaging demonstrates several findings consistent with acute pancreatitis, without any sign of abscess, as well as note of dilated aortic root which appears to be stable compared to previous imaging. A second liter of IV fluids was ordered for hydration given the acute pancreatitis. Patient reassessed multiple times throughout ED stay, he has remained hemodynamically stable and afebrile and notes that his pain is improved after the IV Tylenol. The patient was updated on all results and plan for admission, he was agreeable to this plan. COVID-19 test was ordered. I spoke on the phone with Dr. Pa, [facility] hospitalist, who agrees to evaluate the patient for admission. The patient was stable at time of admission. The chart was completed utilizing [employer] Speech voice recognition software. Grammatical errors, random word insertions, pronoun errors, and incomplete sentences are an occasional consequence of this system due to software limitations, ambient noise, and hardware issues. Any formal questions or concerns about the content, text, or information contained within the body of this dictation should be directly addressed to the nurse practitioner for clarification. Past Med/Surg History Medical History No pertinent family history No pertinent past medical history Surgical History No pertinent past surgical history Social History Smoking Status: Never smoker Second Hand Exposure: No; Hx Alcohol Use: No Hx Substance Use: No Preferred Language: Belarusian Communication Ability: Effective Mail Examiner Required: No Beliefs That Will Affect Care: None Current Living Situation: Spouse Feels Safe at Home: Yes Assistive Devices: None Allergies Allergies Allergy/AdvReac Type Severity Reaction Status Date / Time No Known Allergies Allergy Verified 01/30/21 13:27 Home Meds Home Medications Medication Instructions Recorded Confirmed No Known Home Medications 01/30/21 01/30/21 Results & Data (ED) Vital Signs Vital Signs - 24 hr 01/30/21 12:38 01/30/21 13:45 01/30/21 13:50 Temperature 36.7 C Temperature Source Temporal Artery Scan Pulse Rate 71 74 63 Respiratory Rate 20 21 17 Respiratory Effort / Characteristics Non-Labored Spontaneous Respiratory Depth Normal Respiratory Pattern Regular Blood Pressure 143/91 H Blood Pressure Mean 108 Blood Pressure Position Sitting Pulse Oximetry 97 Oxygen Delivery Method Room Air Sepsis Recent Fever Within 48 Hours No Sepsis New/Unexplained Change in Mental Status No Sepsis Action Taken by Nursing No Action Required 01/30/21 14:00 01/30/21 14:10 01/30/21 14:20 Temperature Temperature Source Pulse Rate 68 68 68 Respiratory Rate 20 22 17 Respiratory Effort / Characteristics Respiratory Depth Respiratory Pattern Blood Pressure 138/82 Blood Pressure Mean 100 Blood Pressure Position Pulse Oximetry Oxygen Delivery Method Sepsis Recent Fever Within 48 Hours Sepsis New/Unexplained Change in Mental Status Sepsis Action Taken by Nursing 01/30/21 14:30 Temperature Temperature Source Pulse Rate 68 Respiratory Rate 19 Respiratory Effort / Characteristics Respiratory Depth Respiratory Pattern Blood Pressure 125/81 Blood Pressure Mean 95 Blood Pressure Position Pulse Oximetry Oxygen Delivery Method Sepsis Recent Fever Within 48 Hours Sepsis New/Unexplained Change in Mental Status Sepsis Action Taken by Nursing Laboratory Data Result diagrams: 01/30/21 13:20 01/30/21 17:07 Lab Results 01/30/21 01/30/21 01/30/21 Range/Units 13:20 13:20 14:02 WBC 12.03 H (4.8-10.8) K/uL RBC 5.23 (4.7-6.1) M/uL Hgb 16.0 (14.0-18.0) g/dL Hct 46.6 (42-52) % MCV 89.1 (80-100) fL MCH 30.6 (25-34) pg MCHC 34.3 (32-36) g/dL RDW Std Deviation 43.0 (36.4-46.3) fL RDW Coeff of Brittany 13.1 (11.5-14.5) % Plt Count 115 L (130-400) K/uL MPV 11.5 H (7.4-10.4) fL Immature Gran % (Auto) 0.3 % Neut % (Auto) 86.7 % Lymph % (Auto) 7.1 % Izard % (Auto) 5.4 % Eos % (Auto) 0.4 % Baso % (Auto) 0.1 % Neut # (Auto) 10.43 H (1.4-6.5) K/uL Lymph # (Auto) 0.85 L (1.2-3.4) K/uL Izard # (Auto) 0.65 H (0.11-0.59) K/uL Eos # (Auto) 0.05 (0-0.5) K/uL Baso # (Auto) 0.01 (0-0.2) K/uL Immature Gran # (Auto) 0.04 H (0.00-0.02) K/uL Sodium 136 (136-145) mmol/L Potassium Cancelled (3.5-5.1) mmol/L Chloride 108 H (98-107) mmol/L Carbon Dioxide 24 (21-32) mmol/L Anion Gap 4.0 (3-11) BUN 18 (7-18) mg/dl Creatinine 0.93 (0.6-1.4) mg/dl Est Cr Clr Drug Dosing 100.1 ml/min Est GFR ( Amer) 109.0 ml/min Est GFR (Non-Af Amer) 94.1 ml/min BUN/Creatinine Ratio 19.8 (10-20) Glucose 96 (70-99) mg/dl Calcium 9.1 (8.5-10.1) mg/dl Total Bilirubin 0.7 (0.2-1) mg/dl AST Cancelled (15-37) U/L ALT 44 (12-78) U/L Alkaline Phosphatase 64 (45-117) U/L Troponin I < 0.015 (0-0.045) ng/ml Total Protein 7.8 (6.4-8.2) gm/dl Albumin 3.9 (3.4-5.0) gm/dl Globulin 3.9 (2.5-4.0) gm/dl Albumin/Globulin Ratio 1.0 (0.9-2) Lipase 1732 H (73-393) U/L COVID-19 Eval Order SARS-CoV-2 (PCR) (Negative) 01/30/21 01/30/21 Range/Units 16:15 16:15 WBC (4.8-10.8) K/uL RBC (4.7-6.1) M/uL Hgb (14.0-18.0) g/dL Hct (42-52) % MCV (80-100) fL MCH (25-34) pg MCHC (32-36) g/dL RDW Std Deviation (36.4-46.3) fL RDW Coeff of Brittany (11.5-14.5) % Plt Count (130-400) K/uL MPV (7.4-10.4) fL Immature Gran % (Auto) % Neut % (Auto) % Lymph % (Auto) % Izard % (Auto) % Eos % (Auto) % Baso % (Auto) % Neut # (Auto) (1.4-6.5) K/uL Lymph # (Auto) (1.2-3.4) K/uL Izard # (Auto) (0.11-0.59) K/uL Eos # (Auto) (0-0.5) K/uL Baso # (Auto) (0-0.2) K/uL Immature Gran # (Auto) (0.00-0.02) K/uL Sodium (136-145) mmol/L Potassium (3.5-5.1) mmol/L Chloride (98-107) mmol/L Carbon Dioxide (21-32) mmol/L Anion Gap (3-11) BUN (7-18) mg/dl Creatinine (0.6-1.4) mg/dl Est Cr Clr Drug Dosing ml/min Est GFR ( Amer) ml/min Est GFR (Non-Af Amer) ml/min BUN/Creatinine Ratio (10-20) Glucose (70-99) mg/dl Calcium (8.5-10.1) mg/dl Total Bilirubin (0.2-1) mg/dl AST (15-37) U/L ALT (12-78) U/L Alkaline Phosphatase (45-117) U/L Troponin I (0-0.045) ng/ml Total Protein (6.4-8.2) gm/dl Albumin (3.4-5.0) gm/dl Globulin (2.5-4.0) gm/dl Albumin/Globulin Ratio (0.9-2) Lipase (73-393) U/L COVID-19 Eval Order Covid19 at [facility] SARS-CoV-2 (PCR) NEGATIVE (Negative) Administered Medications Discontinued Medications Sodium Chloride (Nss) 500 mls @ 999 mls/hr IV .Q31M STA Stop: 01/30/21 13:16 Last Admin: 01/30/21 14:41 Dose: Not Given Documented by: [id number] Acetaminophen (Ofirmev) 1,000 mg in 100 mls @ 400 mls/hr IV NOW STA Stop: 01/30/21 13:53 Last Infusion: 01/30/21 14:23 Dose: 0 mls/hr Documented by: [id number] Admin: 01/30/21 13:50 Dose: 400 mls/hr Documented by: [id number] Sodium Chloride (Nss 1000ml) 1,000 mls @ 999 mls/hr IV .Q1H1M ONE Stop: 01/30/21 14:39 Last Infusion: 01/30/21 14:51 Dose: 0 mls/hr Documented by: [id number] Admin: 01/30/21 13:50 Dose: 999 mls/hr Documented by: [id number] Sodium Chloride (Nss 1000ml) 1,000 mls @ 999 mls/hr IV .Q1H1M ONE Stop: 01/30/21 15:41 Last Infusion: 01/30/21 16:46 Dose: 0 mls/hr Documented by: [id number] Admin: 01/30/21 15:45 Dose: 999 mls/hr Documented by: [id number] Ioversol (Optiray 320 100ml) 95 ml IV ONCE ONE Stop: 01/30/21 14:47 Last Admin: 01/30/21 14:41 Dose: 95 ml Documented by: [id number] Ondansetron HCl (Ondansetron Inj 2 Mg/Ml 2 Ml Vial) 4 mg IV NOW STA Stop: 01/30/21 12:47 Last Admin: 01/30/21 14:41 Dose: Not Given Documented by: [id number] Imaging Data Radiologist's Impression: Abdomen/Pelvis CT 01/30/21 13:[address] WITH IV CONTRAST CT DOSE: 809.27 mGycm HISTORY: mid and epigastric pain, sudden onset TECHNIQUE: Multiaxial CT images of the abdomen and pelvis were performed following the use of intravenous contrast. A dose lowering technique was utilized adhering to the principles of ALARA. COMPARISON STUDY: Abdomen and pelvis CT 07/26/2020. FINDINGS: Stable 4 mm nodule within the left lower lobe on image 62. Stable 3 mm nodule within the lingula on image 28. No pneumoperitoneum. No pneumatosis. No fractures within the visualized osseous structures. Persistent dilatation of the aortic root which measures approximately 5 cm at the level of the sinuses of Valsalva. Small fat-containing umbilical hernia, unchanged. 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 Stable 1.1 cm cyst within the left hepatic lobe. The gallbladder, spleen, adrenal glands, and kidneys are unremarkable. No hydronephrosis. Normal bladder. There is a left circumaortic renal vein. The portal vein is patent. The portosplenic confluence is also patent. Mild fat st randing at the pancreatic head persists. There is slight progression of the focal area of fat stranding and ill-defined fluid anterior to the pancreatic neck which is best seen on image 162. This measures approximately 3 cm. This is inferior to the gastric antrum. No loculated fluid collections or gas to suggest an abscess or fistula at this time. Mild heterogeneous enhancement within the pancreatic head. Therefore, these findings are consistent with progression of the acute pancreatitis. The main pancreatic duct is at the upper limits of normal measuring 3 mm. Progressive thickening of the inferior wall of the gastric antrum and duodenum. This is likely reactive to the suspected acute pancreatitis. No retroperitoneal lymphadenopathy. There is a left circumaortic renal vein. No pelvic free fluid. No evidence for bowel obstruction. The colon is normal and course and caliber. Normal appendix. Mild mesenteric lymphadenopathy persists. This is likely reactive to the suspected acute pancrea titis. IMPRESSION: 1. Heterogeneous enhancement within the head and body of the pancreas with progressive peripancreatic fluid/inflammatory change anteriorly. Findings likely represent progression of the acute pancreatitis. No loculated fluid collections to suggest an abscess at this time. 2. Progressive thickening at the inferior wall of the gastric antrum adjacent to the inflammatory change/fluid. This is likely reactive. No extraluminal gas to suggest a fistula. 3. Mild mesenteric lymphadenopathy persists. This is likely secondary to the acute pancreatitis. 4. Redemonstration of the aortic root dilatation measuring up to 5 cm. Follow-up cardiology consultation with echocardiogram recommended for further evaluation. ACT 112: Negative or not required by law. Electronically signed by: Dilshad Miles M.D. 01/30/2021 3:20 PM Discharge Plan Visit Data Chief Complaint: Abdominal Pain Stated Complaint: STOMACH PAIN ED Provider: Giuseppe Ghotra ED Midlevel Provider: Jessi Horan Discharge Problem: Acute pancreatitis, Dilated aortic root Patient Disposition: Admitted As Inpatient Condition: Good Discharge Instructions Interventions: ED Discharge Assessment Last Done: 01/30/21 20:44 Discharge Problem: Acute pancreatitis Qualifiers: Pancreatitis type: unspecified pancreatitis type Acute pancreatitis complication: unspecified Qualified Code(s): K85.90 - Acute pancreatitis without necrosis or infection, unspecified
[2021-01-30 14:20] LABS: Alanine Aminotransferase 44 U/L (12-78); Albumin Level 3.9 gm/dl (3.4-5.0); Alkaline Phosphatase 64 U/L (45-117); BUN Creatinine Ratio 19.8 (10-20); Bilirubin,Total 0.7 mg/dl (0.2-1); Blood Urea Nitrogen 18 mg/dl (7-18); Calcium 9.1 mg/dl (8.5-10.1); Carbon Dioxide 24 mmol/L (21-32); Chloride 108 mmol/L (98-107); Creatinine Clr Calc Pharmacy 100.1 ml/min; Est GFR (Non-African American) 94.1 ml/min; Globulin 3.9 gm/dl (2.5-4.0); Glucose 96 mg/dl (70-99); Sodium 136 mmol/L (136-145); Total Protein 7.8 gm/dl (6.4-8.2); Troponin I < 0.015 ng/ml (0-0.045)
[2021-01-30 14:32] LABS: Lipase 1732 U/L (73-393)
[2021-01-30] MEDS ORDERED: OPTIRAY 320 100ml IV ONE (14:46)
[2021-01-30 15:13] LABS: Appearance Urine Clear (Clear); Bilirubin Urine Negative (Negative); Blood Urine Negative (Negative); Color Urine Yellow; Glucose Urine UA Negative (Negative); Ketones Urine Negative (Negative); Leukocyte Esterase Urine Negative (Negative); Nitrite Urine Negative (Negative); Protein Urine Negative (Negative); Specific Gravity Urine 1.023 (1.000-1.030); Urobilinogen Urine Negative (Negative)
--- NOTE | 2021-01-30 15:21 | CT Scan Report ---
ABDOMEN AND PELVIS CT WITH IV CONTRAST CT DOSE: 809.27 mGycm HISTORY: mid and epigastric pain, sudden onset TECHNIQUE: Multiaxial CT images of the abdomen and pelvis were performed following the use of intrave nous contrast. A dose lowering technique was utilized adhering to the principles of ALARA. COMPARISON STUDY: Abdomen and pelvis CT 07/26/2020. FINDINGS: Stable 4 mm nodule within the left lower lobe on image 62. Stable 3 mm nodule within the li ngula on image 28. No pneumoperitoneum. No pneumatosis. No fractures within the visualized osseous st ructures. Persistent dilatation of the aortic root which measures approximately 5 cm at the level of the sinuses of Valsalva. Small fat-containing umbilical hernia, unchanged. Tarlov cysts again noted a t the sacral canal. Stable 1.1 cm cyst within the left hepatic lobe. The gallbladder, spleen, adrenal glands, and kidneys are unremarkable. No hydronephrosis. Normal bladder. There is a left circumaorti c renal vein. The portal vein is patent. The portosplenic confluence is also patent. Mild fat strandi ng at the pancreatic head persists. There is slight progression of the focal area of fat stranding an d ill-defined fluid anterior to the pancreatic neck which is best seen on image 162. This measures ap proximately 3 cm. This is inferior to the gastric antrum. No loculated fluid collections or gas to [place] ggest an abscess or fistula at this time. Mild heterogeneous enhancement within the pancreatic head. Therefore, these findings are consistent with progression of the acute pancreatitis. The main pancrea tic duct is at the upper limits of normal measuring 3 mm. Progressive thickening of the inferior wall of the gastric antrum and duodenum. This is likely reactive to the suspected acute pancreatitis. No retroperitoneal lymphadenopathy. There is a left circumaortic renal vein. No pelvic free fluid. No ev idence for bowel obstruction. The colon is normal and course and caliber. Normal appendix. Mild mesen teric lymphadenopathy persists. This is likely reactive to the suspected acute pancreatitis. IMPRESSION: 1. Heterogeneous enhancement within the head and body of the pancreas with progressive peripancreatic fluid/inflammatory change anteriorly. Findings likely represent progression of the acute pancreatiti s. No loculated fluid collections to suggest an abscess at this time. 2. Progressive thickening at the inferior wall of the gastric antrum adjacent to the inflammatory babs nge/fluid. This is likely reactive. No extraluminal gas to suggest a fistula. 3. Mild mesenteric lymphadenopathy persists. This is likely secondary to the acute pancreatitis. 4. Redemonstration of the aortic root dilatation measuring up to 5 cm. Follow-up cardiology consultat ion with echocardiogram recommended for further evaluation. ACT 112: Negative or not required by law. Electronically signed by: Dilshad Miles M.D. 01/30/2021 3:20 PM
--- NOTE | 2021-01-30 17:03 | History & Physical Report ---
Date of Service January 30, 2021 Assessment & Plan (1) Acute pancreatitis: Plan: Patient will be kept n.p.o. he will have parenteral pain medications ordered be placed on lactated Ringer's 150 have serial lipases and LFTs drawn and have gastroenterology consultation since the pt does not use alcohol, has normal triglycerides will send immunoglobulins as IgG4 is associated with some forms of Autoimmune hepatitis, this is a send away test (2) Aortic root dilatation: Plan: Patient is aortic root dilatation is once again re demonstrated. Unclear whether he had follow-up after his last hospital stay regarding this event. Will be assured to arrange hospital follow-up with our nurse navigator assisting in cardiology. Since the patient is involved in the [facility] system will refer to Dr. Herrera (3) DVT prophylaxis: Plan[place] [facility] [place] at this time History of Present Illness Primary Care Provider: Dharmesh Ryan Patient with a history of significant pancreatitis in June 2020 which include pseudocyst and referral to [facility] for stent placement in his biliary tree not exactly sure the exact placement. The stent was subsequently removed. Patient was it is normal state of health this morning awoke at 430 a breakfast at 5 reported to work at 6 about 8:00 in the morning developed abdominal pain presented to the emergency department lipase elevation of [address] scan corroborating acute pancreatitis with inflammation of the pancreatic head again. There is no pseudocyst formation noted at this time. Patient wished to refrain from opiates in the emergency department was given intravenous Tylenol and has reasonable pain control during his last hospital stay he did have jaundice with elevation of his LFTs his current liver function tests are normal. Patient typically follows with [facility] gastroenterology Allergies Allergy/AdvReac Type Severity Reaction Status Date / Time No Known Allergies Allergy Verified 01/30/21 13:27 Home Medications Medication Instructions Recorded Confirmed Type No Known Home Medications 01/30/21 01/30/21 History Past Med/Surg History Medical History No pertinent family history No pertinent past medical history Surgical History No pertinent past surgical history Social History Smoking Status: Never smoker Second Hand Exposure: No; Hx Alcohol Use: No Hx Substance Use: No Preferred Language: Welsh Communication Ability: Effective Concreting Supervisor Required: No Beliefs That Will Affect Care: None Current Living Situation: Spouse Feels Safe at Home: Yes Assistive Devices: None Review of Systems Review of Systems: Mild distress and fatigue no headache, no visual changes no speech or swallowing issues no chest pain, pressure or palpitations no shortness of breath, cough or wheezes Central epigastric abdominal pain with mild nausea without vomiting no change in bowel habits no dysuria, hematuria or frequency no focal joint pain or swelling no back pain, CVA tenderness or radicular pain no bruising, bleeding or rashes no focal signs of weakness or numbness or altered sensation no complaints of anxiety or depression.. Physical Exam Physical Exam: The patient appeared well nourished and normally developed. Vital signs as documented. Head exam is normocephalic atraumatic Neck is without JVD, thyromegaly, or carotid bruits. Lungs are clear to auscultation, no focal loss of breath sounds Cardiac exam, Rhythm is regular.. No murmurs, rubs or gallops. Abdominal exam reveals normal bowel sounds, soft epigastric tenderness with guarding no rebound Extremities are nonedematous and both pedal pulses are present Neurologic exam is alert and oriented, no focal loss of strength or sensation Skin is without bruises or rashes Psychologically is without concerns for anxiety or depression Results & Data Results & Data ([facility]) Vital Signs (Past 12 Hours) Vital Signs Temp Pulse Resp BP Pulse Ox 01/30/21 14:30 68 19 125/81 01/30/21 14:20 68 17 01/30/21 14:10 68 22 01/30/21 14:00 68 20 138/82 01/30/21 13:50 63 17 01/30/21 13:45 74 21 01/30/21 12:38 98.1 F 71 20 143/[address] scan abdomen pelvis with IV contrast 01/30/2021 shows heterogeneous enhancement of the head and body of the pancreas with progressive peripancreatic fluid inflammatory change anteriorly no loculated fluid collection was seen thickening of the inferior wall of the gastric antrum adjacent to the inflammatory change likely reactive no extraluminal gas to suggest a fistula mesenteric lymphadenopathy redemonstration of aortic root dilatation measuring up to 5 cm radiology follow-up was recommended this was also seen during his previous stay Code Status & VTE Plan VTE Prophylaxis Plan VTE Prophylaxis will be ordered: Yes PG Care Time/CCT Total # of Minutes Spent Total Time Spent with Patient: Total time spent is greater than 50% in coordination of care (as documented) at patient's floor/unit and/or counseling patient: Coding Level of Care Code INT OBSERVATION CARE 50M LVL 2 Diagnoses DVT prophylaxis Z29.9 Acute pancreatitis K85.90 Acute pancreatitis complication: unspecified Pancreatitis type: unspecified pancreatitis type Aortic root dilatation I77.810 (1) Acute pancreatitis Acute pancreatitis complication: unspecified Pancreatitis type: unspecified pancreatitis type Qualified Code(s): K85.90 - Acute pancreatitis without necrosis or infection, unspecified
[2021-01-30] MEDS ORDERED: ONDANSETRON INJ 2 MG/ML 2 ML VIAL IV PRN (21:06)
[2021-01-30] MEDS ORDERED: HYDROmorphone INJ 0.5 MG/0.5 ML SYR IV PRN (21:06)
[2021-01-30] MEDS ORDERED: HYDROmorphone INJ 1 MG/ML SYRINGE IV PRN (21:06)
[2021-01-30] MEDS ORDERED: ACETAMINOPHEN 1000 MG/100 ML IV IV PRN (21:06)
[2021-01-30] MEDS: LACTATED RINGER'S 1,000 ML IV SCH (21:22)
[2021-01-30] MEDS: ACETAMINOPHEN 1,000 MG/100 ML VIAL IV PRN (21:50)
[2021-01-31] MEDS: LACTATED RINGER'S 1,000 ML IV SCH ×3 (04:04→18:29)
[2021-01-31 08:17] LABS: Albumin Level 3.4 gm/dl (3.4-5.0); BUN Creatinine Ratio 13.3 (10-20); Bilirubin Direct 0.2 mg/dl (0-0.2); Bilirubin,Total 1.2 mg/dl (0.2-1); Calcium 8.7 mg/dl (8.5-10.1); Creatinine Clr Calc Pharmacy 125.1 ml/min; Est GFR (African American) 122.2 ml/min; Est GFR (Non-African American) 105.5 ml/min; Potassium 3.7 mmol/L (3.5-5.1)
--- NOTE | 2021-01-31 09:10 | Electrocardiogram Report ---
Test Reason : Blood Pressure : / mmHG Vent. Rate : 062 BPM Atrial Rate : 062 BPM P-R Int : 174 ms QRS Dur : 090 ms QT Int : 406 ms P-R-T Axes : 033 -32 034 degrees QTc Int : 412 ms Normal sinus rhythm Left axis deviation Abnormal ECG When compared with ECG of 25-JUN-2020 19:22, Vent. rate has decreased BY 37 BPM Confirmed by Eliot Merrill ([id number]) on 01/31/2021 9:10:12 AM Referred By: Confirmed By:Eliot Merrill
--- NOTE | 2021-01-31 09:16 | Gastrointestinal Consultation ---
Date of Consultation January 31, 2021 Assessment & Plan (1) Acute pancreatitis: Acute pancreatitis: Patient was admitted for findings of acute pancreatitis in a patient that has a history of a large necrotic pancreatic cyst requiring drainage and stent placement at [facility] at the beginning of this year. Supportive measures are recommended at this time. Continue n.p.o. status. Continue as needed parental pain medication and IV fluids. Agree with labs including immunoglobulins to assess for autoimmune hepatitis. Additional recommendations to follow after review by attending GI physician. Please refer to supervising physician addendum for further recommendations. Supervising Physician Co-Signing Physician Notes I have seen and examined the patient. I agree with note above by HANS Hernandez except as noted below. HPI Pt states abd pain improved today. PE Abdomen pos bs, soft, no guarding nor rebound A/P pancreatitis--improved. Recommend outpt GB removal in case sludge/crystal in GB are causing recurrent pancreatitis. History of Present Illness Attending Physician: Ilia Gannon History of Present Illness The patient is a pleasant 51-year-old male who has a past medical history of acute pancreatitis followed by a large necrotic pancreatic cyst requiring drainage and a stent placement at [facility] earlier this year. He had 3 subsequent procedures to drain the cyst and remove necrotic tissue and the stent was taken out 07/18/2020. 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 He presented to the emergency department on 01/30/2021 due to complaints of epigastric and mid abdominal pain that began day of arrival at [address] of the abdomen and pelvis was obtained and demonstrated findings consistent with acute pancreatitis. No loculated fluid collections to suggest abscess at this time. Patient was subsequently admitted for further management and the GI service consulted due to acute pancreatitis. On exam/interview today, the patient reports that he is feeling significantly better than he did with arrival to the hospital. He has continued epigastric and upper to mid abdominal pain. He reports that he does get nausea with severe episodes of pain. Denies any fever. He is currently n.p.o. with ice chips only. Last bowel movement was yesterday prior to his arrival at the hospital. Denies any melena or hematochezia. He reports that when last evaluated in [place], it was recommended that he have his gallbladder removed but he was unable to see a general surgeon. Allergies Allergy/AdvReac Type Severity Reaction Status Date / Time No Known Allergies Allergy Verified 01/30/21 13:27 Home Medications Medication Instructions Recorded Confirmed Type No Known Home Medications 01/30/21 01/30/21 History Patient History Medical History No pertinent family history No pertinent past medical history Surgical History No pertinent past surgical history Social History Smoking Status: Never smoker Second Hand Exposure: No; Hx Alcohol Use: No Hx Substance Use: No Preferred Language: [place] Communication Ability: Effective Hypo Splasher Required: No Beliefs That Will Affect Care: None Current Living Situation: Spouse Feels Safe at Home: Yes Assistive Devices: None Review of Systems Review of Systems: All systems reviewed & are unremarkable except as noted in Subjective Physical Exam Constitutional: WD/WN, vitals as above Respiratory: normal respiratory effort, lungs clear to auscultation Cardiovascular: RRR, no murmur, no edema Gastrointestinal (Abdomen): Inspection/Auscultation: abdomen normal to inspection and normal bowel sounds; abdomen not distended Percussion/Palpation: + abdomen tender (mid to upper abdomen, epigastric) and abdomen soft; no guarding and abdomen not rigid Skin: no rashes, warm and dry Psychiatric: A+Ox3, euthymic affect Results & Data ([facility]) Vital Signs (Past 12 Hours) Vital Signs Temp Pulse Resp BP Pulse Ox 01/31/21 07:20 37 C 78 16 120/73 93 Laboratory Results Laboratory Results - last 24 hr 01/30/21 01/30/21 01/30/21 13:20 13:20 14:02 WBC 12.03 H RBC 5.23 Hgb 16.0 Hct 46.6 MCV 89.1 MCH 30.6 MCHC 34.3 RDW Std Deviation 43.0 RDW Coeff of Brittany 13.1 Plt Count 115 L MPV 11.5 H Immature Gran % (Auto) 0.3 Neut % (Auto) 86.7 Lymph % (Auto) 7.1 Robertson % (Auto) 5.4 Eos % (Auto) 0.4 Baso % (Auto) 0.1 Neut # (Auto) 10.43 H Lymph # (Auto) 0.85 L Robertson # (Auto) 0.65 H Eos # (Auto) 0.05 Baso # (Auto) 0.01 Immature Gran # (Auto) 0.04 H Sodium 136 Potassium Cancelled Chloride 108 H Carbon Dioxide 24 Anion Gap 4.0 BUN 18 Creatinine 0.93 Est Cr Clr Drug Dosing 100.1 Est GFR ( Amer) 109.0 Est GFR (Non-Af Amer) 94.1 BUN/Creatinine Ratio 19.8 Glucose 96 Calcium 9.1 Total Bilirubin 0.7 Direct Bilirubin AST Cancelled ALT 44 Alkaline Phosphatase 64 Troponin I < 0.015 Total Protein 7.8 Albumin 3.9 Globulin 3.9 Albumin/Globulin Ratio 1.0 Lipase 1732 H Urine Color Urine Appearance Urine pH Ur Specific [place] Urine Protein Urine Glucose (UA) Urine Ketones Urine Blood Urine Nitrite Urine Bilirubin Urine Urobilinogen Ur Leukocyte Esterase IgG IgG1 IgG2 IgG3 IgG4 COVID-19 Eval Order SARS-CoV-2 (PCR) 01/30/21 01/30/21 01/30/21 14:02 16:15 16:15 WBC RBC Hgb Hct MCV MCH MCHC RDW Std Deviation RDW Coeff of Brittany Plt Count MPV Immature Gran % (Auto) Neut % (Auto) Lymph % (Auto) Robertson % (Auto) Eos % (Auto) Baso % (Auto) Neut # (Auto) Lymph # (Auto) Robertson # (Auto) Eos # (Auto) Baso # (Auto) Immature Gran # (Auto) Sodium Potassium Chloride Carbon Dioxide Anion Gap BUN Creatinine Est Cr Clr Drug Dosing Est GFR ( Amer) Est GFR (Non-Af Amer) BUN/Creatinine Ratio Glucose Calcium Total Bilirubin Direct Bilirubin AST ALT Alkaline Phosphatase Troponin I Total Protein Albumin Globulin Albumin/Globulin Ratio Lipase Urine Color Urine Appearance Urine pH Ur Specific [place] Urine Protein Urine Glucose (UA) Urine Ketones Urine Blood Urine Nitrite Urine Bilirubin Urine Urobilinogen Ur Leukocyte Esterase IgG Pending IgG1 Pending IgG2 Pending IgG3 Pending IgG4 Pending COVID-19 Eval Order Covid19 at [facility] SARS-CoV-2 (PCR) NEGATIVE 01/30/21 01/30/21 01/31/21 17:07 Unknown 07:04 WBC RBC Hgb Hct MCV MCH MCHC RDW Std Deviation RDW Coeff of Brittany Plt Count MPV Immature Gran % (Auto) Neut % (Auto) Lymph % (Auto) Robertson % (Auto) Eos % (Auto) Baso % (Auto) Neut # (Auto) Lymph # (Auto) Robertson # (Auto) Eos # (Auto) Baso # (Auto) Immature Gran # (Auto) Sodium 141 Potassium 4.0 3.7 Chloride 109 H Carbon Dioxide 23 Anion Gap 9.0 BUN 10 D Creatinine 0.75 Est Cr Clr Drug Dosing 125.1 Est GFR ( Amer) 122.2 Est GFR (Non-Af Amer) 105.5 BUN/Creatinine Ratio 13.3 Glucose 108 H Calcium 8.7 Total Bilirubin 1.2 H D Direct Bilirubin 0.2 AST 36 29 ALT 31 Alkaline Phosphatase 59 Troponin I Total Protein 7.0 Albumin 3.4 Globulin Albumin/Globulin Ratio Lipase 1498 H Urine Color Yellow Urine Appearance Clear Urine pH 5.0 Ur Specific [place] 1.023 Urine Protein Negative Urine Glucose (UA) Negative Urine Ketones Negative Urine Blood Negative Urine Nitrite Negative Urine Bilirubin Negative Urine Urobilinogen Negative Ur Leukocyte Esterase Negative IgG IgG1 IgG2 IgG3 IgG4 COVID-19 Eval Order SARS-CoV-2 (PCR) Diagnostic Findings Abdomen/Pelvis CT 01/30/21 13:[address] WITH IV CONTRAST CT DOSE: 809.27 mGycm HISTORY: mid and epigastric pain, sudden onset TECHNIQUE: Multiaxial CT images of the abdomen and pelvis were performed following the use of intravenous contrast. A dose lowering technique was utilized adhering to the principles of ALARA. COMPARISON STUDY: Abdomen and pelvis CT 07/26/2020. FINDINGS: Stable 4 mm nodule within the left lower lobe on image 62. Stable 3 mm nodule within the lingula on image 28. No pneumoperitoneum. No pneumatosis. No fractures within the visualized osseous structures. Persistent dilatation of the aortic root which measures approximately 5 cm at the level of the sinuses of Valsalva. Small fat-containing umbilical hernia, unchanged. 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 Stable 1.1 cm cyst within the left hepatic lobe. The gallbladder, spleen, adrenal glands, and kidneys are unremarkable. No hydronephrosis. Normal bladder. There is a left circumaortic renal vein. The portal vein is patent. The portosplenic confluence is also patent. Mild fat stranding at the pancreatic head persists. There is slight progression of the focal area of fat stranding and ill-defined fluid anterior to the pancreatic neck which is best seen on image 162. This measures approximately 3 cm. This is inferior to the gastric antrum. No loculated fluid collections or gas to suggest an abscess or fistula at this time. Mild heterogeneous enhancement within the pancreatic head. Therefore, these findings are consistent with progression of the acute pancreatitis. The main pancreatic duct is at the upper limits of normal measuring 3 mm. Progressive thickening of the inferior wall of the gastric antrum and duodenum. This is likely reactive to the suspected acute pancreatitis. No retroperitoneal lymphadenopathy. There is a left circumaortic renal vein. No pelvic free fluid. No evidence for bowel obstruction. The colon is normal and course and caliber. Normal appendix. Mild mesenteric lymphadenopathy persists. This is likely reactive to the suspected acute pancreatitis. IMPRESSION: 1. Heterogeneous enhancement within the head and body of the pancreas with progressive peripancreatic fluid/inflammatory change anteriorly. Findings likely represent progression of the acute pancreatitis. No loculated fluid collections to suggest an abscess at this time. 2. Progressive thickening at the inferior wall of the gastric antrum adjacent to the inflammatory change/fluid. This is likely reactive. No extraluminal gas to suggest a fistula. 3. Mild mesenteric lymphadenopathy persists. This is likely secondary to the acute pancreatitis. 4. Redemonstration of the aortic root dilatation measuring up to 5 cm. Follow-up cardiology consultation with echocardiogram recommended for further evaluation. ACT 112: Negative or not required by law. Electronically signed by: Dilshad Miles M.D. 01/30/2021 3:20 PM (1) Acute pancreatitis Acute pancreatitis complication: unspecified Pancreatitis type: unspecified pancreatitis type Qualified Code(s): K85.90 - Acute pancreatitis without necrosis or infection, unspecified
[2021-01-31] MEDS: ACETAMINOPHEN 1,000 MG/100 ML VIAL IV PRN ×2 (13:10→21:01)
--- NOTE | 2021-01-31 17:53 | Hospitalist Progress Note ---
Date of Service January 31, 2021 Assessment & Plan (1) Acute pancreatitis: Plan: - Continue NPO status for now, still fairly tender - ice chips and small sips of clears ok - Given his history of necrotic pancreatic cyst and elevated TB, obtain MRCP - Continue LR @ 150 ml/hr - Pain control - Zofran and PPI - GI consult ordered, appreciate their recommendations - ?GB sludge causing recurrent AP - agree with o/p elective cholecystectomy - Immunoglobulins sent to r/o Autoimmune hepatitis - Trend lipase (2) Aortic root dilatation: Plan: - Aortic root dilatation is once again re demonstrated on imaging - Unclear whether he had follow-up after his last hospital stay regarding this issue - Will be assured to arrange hospital follow-up with our nurse navigator assisting in cardiology. Since the patient is involved in the [facility] system will refer to Dr. Herrera (3) DVT prophylaxis: Plan: SCDs for DVT prevention at this time Plan: Out of bed as tolerated Trend labs (including lipase and LFTs) Admission and Anticipated Discharge Date Admission Date: January 30, 2021 Supervising Physician Co-Signing Physician Notes Attending Attestation - Chart reviewed in detail, care plan d/w SHAD Garcia. I agree w/ the perez components of her documentation. Acute pancreatitis - etiology? Still has gall bladder, but radiographically is normal on CT (no stones, no sludge). Cont LR, supportive care. Await MRCP. Ilia Gannon MD Subjective Mr. Fung was seen on rounds this morning. Pt was hospitalized yesterday for acute pancreatitis manifested by symptoms including epigastric pain that began yesterday morning. Pt has a known h/o AP with necrotic pancreatic cyst requiring drainage and [place] [facility] [place]. He is currently resting in hospital bed, reports substantial improvement in pain since he first came to the hospital. At time of assessment, pt reported pain at a scale of 2/10. Denied associated nausea, vomiting, diarrhea. Denies cp, dyspnea, fever, chills, cough, headache, or gu symptoms. Tolerating ice chips. No issues reported by nursing staff. Review of Systems Review of Systems: CONSTITUTIONAL: Denies weight loss/gain, fever and chills, fatigue, malaise, generalized weakness. HEENT: Denies changes in vision and hearing. RESPIRATORY: Denies SOB, cough, wheezing. CV: Denies palpitations, CP, lower extremity edema, orthopnea, PND. GI: +abdominal pain. Denies nausea, vomiting and diarrhea. : Denies dysuria and urinary frequency, urgency, hesitancy. MUSCULOSKELETAL: Denies myalgia and joint pain. SKIN: Denies rash and pruritus. NEUROLOGICAL: Denies headache, syncope, focal weakness, numbness, tingling. PSYCHIATRIC: Denies recent changes in mood. Denies anxiety and depression. Physical Exam Physical Exam: GENERAL: 51 yo WD/WN WM. Pleasant, cooperative. NAD. LUNGS: Clear to auscultation bilaterally. No accessory muscle use. No W/R/R. CARDIOVASCULAR: Regular rate and rhythm. No M/G/R. No JVD. ABDOMEN: Soft, tender to light palpation in the epigastrium. ND. Bowel sounds normoactive x 4 quad. EXTREMITIES: No edema. Non-tender. Peripheral pulses +2/4. NEUROLOGIC: A&O x3. No focal neurological deficits. CN II-XII grossly intact. SKIN: Warm, dry, intact. No rashes or lesions. Results & Data Results & Data ([facility]) Vital Signs (Past 12 Hours) Vital Signs Temp Pulse Resp BP Pulse Ox 01/31/21 15:24 37.1 C 77 16 121/79 92 01/31/21 07:20 37 C 78 16 120/73 93 Laboratory Results Laboratory Results - last 24 hr 01/30/21 01/30/21 01/31/21 14:02 16:15 07:04 Sodium 141 Potassium 3.7 Chloride 109 H Carbon Dioxide 23 Anion Gap 9.0 BUN 10 D Creatinine 0.75 Est Cr Clr Drug Dosing 125.1 Est GFR ( Amer) 122.2 Est GFR (Non-Af Amer) 105.5 BUN/Creatinine Ratio 13.3 Glucose 108 H Calcium 8.7 Total Bilirubin 1.2 H D Direct Bilirubin 0.2 AST 29 ALT 31 Alkaline Phosphatase 59 Total Protein 7.0 Albumin 3.4 Lipase 1498 H IgG Pending IgG1 Pending IgG2 Pending IgG3 Pending IgG4 Pending SARS-CoV-2 (PCR) NEGATIVE Diagnostic Findings MRCP performed this afternoon, results pending PG Care Time/CCT Total # of Minutes Spent Total Time Spent with Patient: Total time spent is greater than 50% in coordination of care (as documented) at patient's floor/unit and/or counseling patient: Coding Level of Care Code 55006 Subseq Obs Care Lvl 2 Diagnoses Acute pancreatitis K85.90 Acute pancreatitis complication: unspecified Pancreatitis type: unspecified pancreatitis type Aortic root dilatation I77.810 DVT prophylaxis Z29.9 (1) Acute pancreatitis Acute pancreatitis complication: unspecified Pancreatitis type: unspecified pancreatitis type Qualified Code(s): K85.90 - Acute pancreatitis without necrosis or infection, unspecified
--- NOTE | 2021-01-31 18:34 | Magnetic Resonance Report ---
MRCP CLINICAL HISTORY: Upper abdominal pain. Recurrent pancreatitis. Elevated bilirubin. COMPARISON STUDY: Abdominal CT dated 01/30/2021. MRCP dated 06/25/2020. TECHNIQUE: Abdominal MRCP is performed utilizing various T2-weighted sequences in the axial and coron al planes. IV contrast was not administered for this examination. Examination is modestly degraded by motion artifact. FINDINGS: The gallbladder is normal as visualized. No gallstones are identified. There is no intra or extrahepa tic biliary ductal dilatation. The common bile duct measures up to 3 mm diameter. No intraluminal douglas ling defects are seen to suggest choledocholithiasis. The proximal pancreatic duct is normal in calib er. There is mild dilatation of the remainder of the pancreatic duct which measures up to 5 mm. There is peripancreatic infiltration and fluid consistent with acute pancreatitis. Mild wall thickeni ng of the adjacent duodenum and stomach is likely reactive. No organized peripancreatic fluid collect ion is identified. A 13 mm cyst is incidentally noted in the left lobe of liver. The unenhanced liver is otherwise grossly unremarkable, as is the spleen, adrenal glands, and kidneys. The abdominal aort a is normal in caliber. There is no bowel obstruction. No pleural effusion is identified. The heart i s enlarged. Aneurysmal dilatation of the aortic root is unchanged measuring up to 5 cm. IMPRESSION: 1. Findings are consistent with acute pancreatitis. 2. Normal MRCP evaluation of the gallbladder and biliary tree. 3. There is mild dilatation throughout the pancreatic duct, likely related to acute pancreatitis. 4. Cardiomegaly with aneurysmal dilatation of the aortic root. This is similar to prior studies. Dictated: 01/31/2021 5:06 PM Transcribed: 01/31/2021 5:48 PM Sharita [id number] [email or web address] Electronically signed by: Daquan Da Silva M.D. 01/31/2021 6:32 PM
[2021-02-01] MEDS: LACTATED RINGER'S 1,000 ML IV SCH ×4 (00:43→21:09)
[2021-02-01 06:43] LABS: Basophils # (auto) 0.01 K/uL (0-0.2); Basophils % (auto) 0.1 %; Eosinophils # (auto) 0.06 K/uL (0-0.5); Eosinophils % (auto) 0.8 %; Hematocrit (blood only) 42.7 % (42-52); Hemoglobin 14.7 g/dL (14.0-18.0); Immature Granulocytes # (auto) 0.02 K/uL (0.00-0.02); Immature Granulocytes % (auto) 0.3 %; Lymphocytes % (auto) 12.3 %; Mean Corpuscular Hemoglobin 30.7 pg (25-34); Mean Corpuscular Hgb Conc 34.4 g/dL (32-36); Mean Corpuscular Volume 89.1 fL (80-100); Monocytes # (auto) 0.54 K/uL (0.11-0.59); Monocytes % (auto) 7.4 %; Neutrophils # (auto) 5.81 K/uL (1.4-6.5); Neutrophils % (auto) 79.1 %; Platelet Count 166 K/uL (130-400); RDW Coefficient of Variation 12.8 % (11.5-14.5); RDW Standard Deviation 41.5 fL (36.4-46.3); Red Blood Count 4.79 M/uL (4.7-6.1); White Blood Count 7.34 K/uL (4.8-10.8)
--- NOTE | 2021-02-01 08:03 | Gastroenterology Progress Note ---
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 Lipase is elevated today although patient is noting improvement. Supportive measures recommended. Okay to advance to clear liquids. Continue as needed parenteral pain medication IV fluids. MRCP demonstrated findings with acute pancreatitis but no evidence of abscess or cyst. It is recommended patient have outpatient evaluation by surgery for gallbladder removal in case sludge/crystals in the gallbladder causing recurrent pancreatitis. Please refer to supervising physician addendum for further recommendations. Admission and Anticipated Discharge Date Admission Date: January 30, 2021 Supervising Physician Co-Signing Physician Notes I have seen and examined the patient. I agree with note above by HANS Hernandez except as noted below. HPI Pt denies abd pain and is tolerating clear liquids. PE Abdomen pos bs, soft, no guarding nor rebound A/P apncreatitis--lipase worse but clinically improved so continue clears. Sometimes lipase and clinical findings do not correlate. Reasonable to continue to follow liipase, however. Dr Sukumar Cruz is covering [facility] at 1800 and over the weekend. Subjective The patient is awake alert and oriented this morning. He is sitting up in position of comfort on the bed. He denies any specific complaints. Reports abdominal pain only with palpation. Reports pain is a 2 out of 10 at rest. Reports 4 out of 10 with palpation. Denies any nausea or vomiting. Reports he is passing gas. Reports last bowel movement prior to admission. No blood in the stools. He remains n.p.o. Review of Systems Review of Systems: All systems reviewed & are unremarkable except as noted in Subjective Physical Exam Gastrointestinal (Abdomen): Inspection/Auscultation: abdomen normal to inspection and normal bowel sounds; abdomen not distended Percussion/Palp ation: + abdomen tender (Epigastric to right upper quadrant) and abdomen soft; no guarding and abdomen not rigid Results & Data ([facility]) Vital Signs (Past 12 Hours) Vital Signs Temp Pulse Resp BP Pulse Ox 01/31/21 22:41 36.8 C 62 18 125/57 L 94 Laboratory Results Laboratory Results - last 24 hr 02/01/21 02/01/21 06:15 06:15 WBC 7.34 RBC 4.79 Hgb 14.7 Hct 42.7 MCV 89.1 MCH 30.7 MCHC 34.4 RDW Std Deviation 41.5 RDW Coeff of Brittany 12.8 Plt Count 166 MPV 10.0 Immature Gran % (Auto) 0.3 Neut % (Auto) 79.1 Lymph % (Auto) 12.3 [place] % (Auto) 7.4 Eos % (Auto) 0.8 Baso % (Auto) 0.1 Neut # (Auto) 5.81 Lymph # (Auto) 0.90 L [place] # (Auto) 0.54 Eos # (Auto) 0.06 Baso # (Auto) 0.01 Immature Gran # (Auto) 0.02 Sodium 141 Potassium 3.8 Chloride 108 H Carbon Dioxide 21 Anion Gap 12.0 H BUN 8 Creatinine 0.83 Est Cr Clr Drug Dosing 113.0 Est GFR ( Amer) 117.3 Est GFR (Non-Af Amer) 101.2 BUN/Creatinine Ratio 10.1 Glucose 96 Calcium 9.0 Total Bilirubin 1.1 H Direct Bilirubin 0.2 AST 28 ALT 28 Alkaline Phosphatase 64 Total Protein 7.2 Albumin 3.4 Lipase 4132 H Diagnostic Findings Cholangiopancreatography MRI 01/31/21 08:47 MRCP CLINICAL HISTORY: Upper abdominal pain. Recurrent pancreatitis. Elevated bilirubin. COMPARISON STUDY: Abdominal CT dated 01/30/2021. MRCP dated 06/25/2020. TECHNIQUE: Abdominal MRCP is performed utilizing various T2-weighted sequences in the axial and coronal planes. IV contrast was not administered for this examination. Examination is modestly degraded by motion artifact. FINDINGS: The gallbladder is normal as visualized. No gallstones are identified. There is no intra or extrahepatic biliary ductal dilatation. The common bile duct measures up to 3 mm diameter. No intraluminal filling defects are seen to sugges t choledocholithiasis. The proximal pancreatic duct is normal in caliber. There is mild dilatation of the remainder of the pancreatic duct which measures up to 5 mm. There is peripancreatic infiltration and fluid consistent with acute pancreatitis. Mild wall thickening of the adjacent duodenum and stomach is likely reactive. No organized peripancreatic fluid collection is identified. A 13 mm cyst is incidentally noted in the left lobe of liver. The unenhanced liver is otherwise grossly unremarkable, as is the spleen, adrenal glands, and kidneys. The abdominal aorta is normal in caliber. There is no bowel obstruction. No pleural effusion is identified. The heart is enlarged. Aneurysmal dilatation of the aortic root is unchanged measuring up to 5 cm. IMPRESSION: 1. Findings are consistent with acute pancreatitis. 2. Normal MRCP evaluation of the gallbladder and biliary tree. 3. There is mild dilatation throughout the pancreatic duct, likely related to acute pancreatitis. 4. Cardiomegaly with aneurysmal dilatation of the aortic root. This is similar to prior studies. Dictated: 01/31/2021 5:06 PM Transcribed: 01/31/2021 5:48 PM Sharita [id number] [facility] Electronically signed by: Daquan Da Silva M.D. 01/31/2021 6:32 PM (1) Acute pancreatitis Acute pancreatitis complication: unspecified Pancreatitis type: unspecified pancreatitis type Qualified Code(s): K85.90 - Acute pancreatitis without necrosis or infection, unspecified
[2021-02-01 08:17] LABS: Albumin Level 3.4 gm/dl (3.4-5.0); BUN Creatinine Ratio 10.1 (10-20); Est GFR (African American) 117.3 ml/min; Est GFR (Non-African American) 101.2 ml/min; Potassium 3.8 mmol/L (3.5-5.1)
[2021-02-01 08:22] LABS: Bilirubin Direct 0.2 mg/dl (0-0.2); Bilirubin,Total 1.1 mg/dl (0.2-1); Total Protein 7.2 gm/dl (6.4-8.2)
--- NOTE | 2021-02-01 12:57 | Surgery Consultation ---
Date of Consultation February 01, 2021 Assessment & Plan (1) Umbilical hernia: Patient has a very stable umbilical hernia I am not worried about incarceration or strangulation It can be electively repaired at some point There is some question of future cholecystectomy-with his changes in the area of the pancreas and duodenum I would suggest this be performed at [place] and I have discussed this with the patient History of Present Illness Attending Physician: Ilia Gannon History of Present Illness 51-year-old male with an umbilical hernia-this is longstanding Not really bothering the patient much On his CAT scan it is approximately 1 to 1/2 cm in diameter with a defect and a 2 cm sac It has adipose tissue within it with no bowel He is admitted to the hospital with pancreatitis and a history of a necrotic cyst with subsequent drainage at [facility] and also 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 Allergies Allergy/AdvReac Type Severity Reaction Status Date / Time No Known Allergies Allergy Verified 01/30/21 13:27 Home Medications Medication Instructions Recorded Confirmed Type No Known Home Medications 01/30/21 01/30/21 History Patient History Medical History No pertinent family history No pertinent past medical history Surgical History No pertinent past surgical history Social History Smoking Status: Never smoker Second Hand Exposure: No; Do You Dip or Chew Tobacco: No; Hx Alcohol Use: No Hx Substance Use: No Preferred Language: Khmer Communication Ability: Effective 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 Beliefs That Will Affect Care: None Current Living Situation: Spouse Other Information That Helps Us Care for You: No Feels Safe at Home: Yes Safety Concerns: Feels Safe At This Time Assistive Devices: None Review of Systems Review of Systems: All systems reviewed & are unremarkable except as noted in HPI & below Physical Exam Physical Exam: Patient is awake and alert in no distress Constitutional: well developed; no acute distress Eyes: + anicteric sclerae Respiratory: normal respiratory effort; no respiratory distress Cardiovascular: Rate/Rhythm: regular rate Gastrointestinal (Abdomen): Inspection/Auscultation: abdomen not distended Percussion/Palpation: abdomen soft Patient has an umbilical hernia which is relatively soft - I am not concerned about incarceration There may be very minimal erythema but it does not need to be urgently repaired Musculoskeletal: Head/Neck/Chest: head atraumatic Skin: no rashes, warm and dry Neurologic: awake Psychiatric: Orientation: alert Results & Data ([facility]) Vital Signs (Past 12 Hours) Vital Signs Temp Pulse Resp BP Pulse Ox 02/01/21 09:20 36.8 C 78 14 134/80 95 Diagnostic Findings I did review the patient's CAT scan PG Care Time/CCT Total # of Minutes Spent Total Time Spent with Patient: Total time spent is greater than 50% in coordination of care (as documented) at patient's floor/unit and/or counseling patient: Coding Level of Care Code 47185 Inpt Consult Level 4 Diagnoses Umbilical hernia K42.9
--- NOTE | 2021-02-01 15:58 | Hospitalist Progress Note ---
Date of Service February 01, 2021 Assessment & Plan (1) Acute pancreatitis: Plan: - Diet advanced to clear liquids of which he is currently tolerating, will continue for now - Given his history of necrotic pancreatic cyst and elevated TB, MRCP obtained, results WNL (noted above) - Continue LR @ 150 ml/hr - Pain control - Zofran and PPI - GI consult ordered, appreciate their recommendations - ?GB sludge causing recurrent AP - agree with o/p elective cholecystectomy, but general surgery feels this should be done at [place] as opposed to locally - Immunoglobulins sent to r/o Autoimmune hepatitis - Lipase uptrended today to 4132 (from 1498) -- unclear as to why; however, pt is clinically improving so this doesn't necessarily correlate - Follow w/ repeat lipase in AM (2) Umbilical hernia: Plan: - Appreciate general surgery recommendations - Umbilical hernia is containing fat, no evidence of incarceration or strangulation - Can perform elective repair as an outpatient (3) Aortic root dilatation: Plan: - Aortic root dilatation is once again re demonstrated on imaging - Unclear whether he had follow-up after his last hospital stay regarding this issue - Will be assured to arrange hospital follow-up with our nurse navigator assisting in cardiology. Since the patient is involved in the [facility] system will refer to Dr. Herrera (4) DVT prophylaxis: Plan: SCDs for DVT prevention at this time Plan: Out of bed as tolerated Trend labs (including lipase and LFTs) Continue clears today Anticipate likely home tomorrow Admission and Anticipated Discharge Date Admission Date: February 01, 2021 Supervising Physician Co-Signing Physician Notes Attending Attestation - Chart reviewed in detail, care plan d/w SHAD Garcia. I agree w/ the perez components of her documentation. Acute pancreatitis - etiology? Still has gall bladder, but radiographically is normal on CT (no stones, no sludge) and MRCP. Cont LR, supportive care. Clears today. Lipase is worse, but clinically improved today. GI consult & recs appreciated. Gen surg consulted for umbilical hernia - elective repair in the future if desired by patient. Nothing urgent needed, however. Ilia Gannon MD Subjective Mr. Fung was seen on rounds this morning. Pt remains hospitalized for acute pancreatitis. Pt has a known h/o AP with necrotic pancreatic cyst requiring drainage and stent placement at [facility] in 06/2020. He continues to note improvement in his abd pain. Minimal discomfort at rest, but worse when putting pressure in his epigastric area. Currently denies associated nausea, vomiting, diarrhea. Denies cp, dyspnea, fever, chills, cough, headache, or gu symptoms. Diet advanced this morning to clear liquids, of which he is tolerating. No issues reported by nursing staff. Review of Systems Review of Systems: CONSTITUTIONAL: Denies weight loss/gain, fever and chills, fatigue, malaise, generalized weakness. HEENT: Denies changes in vision and hearing. RESPIRATORY: Denies SOB, cough, wheezing. CV: Denies palpitations, CP, lower extremity edema, orthopnea, PND. GI: +abdominal pain, mild when compared to presenting symptoms. Denies nausea, vomiting and diarrhea. : Denies dysuria and urinary frequency, urgency, hesitancy. MUSCULOSKELETAL: Denies myalgia and joint pain. SKIN: Denies rash and pruritus. NEUROLOGICAL: Denies headache, syncope, focal weakness, numbness, tingling. PSYCHIATRIC: Denies recent changes in mood. Denies anxiety and depression. Physical Exam Physical Exam: GENERAL: 51 yo WD/WN WM. Pleasant, cooperative. NAD. LUNGS: Clear to auscultation bilaterally. No accessory muscle use. No W/R/R. CARDIOVASCULAR: Regular rate and rhythm. No M/G/R. No JVD. ABDOMEN: Soft, tender to moderate palp in epigastrium. ND. Umbilical hernia present, tender. BS normoactive x 4 quad. EXTREMITIES: No edema. Non-tender. Peripheral pulses +2/4. SKIN: Warm, dry, intact. No rashes or lesions. Results & Data Results & Data ([facility]) Vital Signs (Past 12 Hours) Vital Signs Temp Pulse Pulse Resp BP Pulse Ox 02/01/21 15:22 36.8 C 80 14 127/85 94 02/01/21 09:20 36.8 C 78 14 134/80 95 Laboratory Results 02/01/21 06:15 02/01/21 06:15 Lipase: 4132 Diagnostic Findings Cholangiopancreatography MRI 01/31/21 08:47 MRCP CLINICAL HISTORY: Upper abdominal pain. Recurrent pancreatitis. Elevated bilirubin. COMPARISON STUDY: Abdominal CT dated 01/30/2021. MRCP dated 06/25/2020. TECHNIQUE: Abdominal MRCP is performed utilizing various T2-weighted sequences in the axial and coronal planes. IV contrast was not administered for this examination. Examination is modestly degraded by motion artifact. FINDINGS: The gallbladder is normal as visualized. No gallstones are identified. There is no intra or extrahepatic biliary ductal dilatation. The common bile duct measures up to 3 mm diameter. No intraluminal filling defects are seen to suggest choledocholithiasis. The proximal pancreatic duct is normal in caliber. There is mild dilatation of the remainder of the pancreatic duct which measures up to 5 mm. There is peripancreatic infiltration and fluid consistent with acute pancreatitis. Mild wall thickening of the adjacent duodenum and stomach is likely reactive. No organized peripancreatic fluid collection is identified. A 13 mm cyst is incidentally noted in the left lobe of liver. The unenhanced liver is otherwise grossly unremarkable, as is the spleen, adrenal glands, and kidneys. The abdominal aorta is normal in caliber. There is no bowel obstruction. No pleural effusion is identified. The heart is enlarged. Aneurysmal dilatation of the aortic root is unchanged measuring up to 5 cm. IMPRESSION: 1. Findings are consistent with acute pancreatitis. 2. Normal MRCP evaluation of the gallbladder and biliary tree. 3. There is mild dilatation throughout the pancreatic duct, likely related to acute pancreatitis. 4. Cardiomegaly with aneurysmal dilatation of the aortic root. This is similar to prior studies. Dictated: 01/31/2021 5:06 PM Transcribed: 01/31/2021 5:48 PM Sharita [id number] [facility] Electronically signed by: Daquan Da Silva M.D. 01/31/2021 6:32 PM PG Care Time/CCT Total # of Minutes Spent Total Time Spent with Patient: Total time spent is greater than 50% in coordination of care (as documented) at patient's floor/unit and/or counseling patient: Coding Level of Care Code 90521 Subseq Hosp Care Lvl 2 Diagnoses Acute pancreatitis K85.90 Acute pancreatitis complication: unspecified Pancreatitis type: unspecified pancreatitis type Aortic root dilatation I77.810 DVT prophylaxis Z29.9 Umbilical hernia K42.9 (1) Acute pancreatitis Acute pancreatitis complication: unspecified Pancreatitis type: unspecified pancreatitis type Qualified Code(s): K85.90 - Acute pancreatitis without necrosis or infection, unspecified
[2021-02-01] MEDS: ACETAMINOPHEN 1,000 MG/100 ML VIAL IV PRN (17:48)
[2021-02-02] MEDS: LACTATED RINGER'S 1,000 ML IV SCH (03:49)
[2021-02-02 06:36] LABS: Basophils # (auto) 0.01 K/uL (0-0.2); Basophils % (auto) 0.2 %; Eosinophils # (auto) 0.09 K/uL (0-0.5); Eosinophils % (auto) 1.8 %; Hematocrit (blood only) 38.8 % (42-52); Hemoglobin 13.4 g/dL (14.0-18.0); Lymphocytes # (auto) 0.85 K/uL (1.2-3.4); Lymphocytes % (auto) 16.7 %; Mean Corpuscular Hemoglobin 30.6 pg (25-34); Mean Corpuscular Hgb Conc 34.5 g/dL (32-36); Mean Corpuscular Volume 88.6 fL (80-100); Monocytes # (auto) 0.52 K/uL (0.11-0.59); Monocytes % (auto) 10.2 %; Neutrophils # (auto) 3.62 K/uL (1.4-6.5); Neutrophils % (auto) 71.1 %; Platelet Count 150 K/uL (130-400); RDW Coefficient of Variation 12.8 % (11.5-14.5); RDW Standard Deviation 41.6 fL (36.4-46.3); Red Blood Count 4.38 M/uL (4.7-6.1); White Blood Count 5.09 K/uL (4.8-10.8)
[2021-02-02 07:06] LABS: Albumin Level 2.9 gm/dl (3.4-5.0); BUN Creatinine Ratio 7.7 (10-20); Bilirubin Direct 0.2 mg/dl (0-0.2); Calcium 9.1 mg/dl (8.5-10.1); Creatinine Clr Calc Pharmacy 117.3 ml/min; Est GFR (Non-African American) 102.7 ml/min; Potassium 3.8 mmol/L (3.5-5.1)
[2021-02-02 07:09] LABS: Albumin Globulin Ratio 0.8 (0.9-2); Bilirubin,Total 0.8 mg/dl (0.2-1); Globulin 3.7 gm/dl (2.5-4.0); Total Protein 6.6 gm/dl (6.4-8.2)
--- NOTE | 2021-02-02 12:17 | Discharge Summary ---
Date of Service February 02, 2021 Admission HPI Per Admitting Provider Patient with a history of significant pancreatitis in June 2020 which include pseudocyst and referral to [facility] for stent placement in his biliary tree not exactly sure the exact placement. The stent was subsequently removed. Patient was it is normal state of health this morning awoke at 430 a breakfast at 5 reported to work at 6 about 8:00 in the morning developed abdominal pain presented to the emergency department lipase elevation of [address] scan corroborating acute pancreatitis with inflammation of the pancreatic head again. There is no pseudocyst formation noted at this time. Patient wished to refrain from opiates in the emergency department was given intravenous Tylenol and has reasonable pain control during his last hospital stay he did have jaundice with elevation of his LFTs his current liver function tests are normal. Patient typically follows with [facility] gastroenterology Admission Exam Per Admitting Provider The patient appeared well nourished and normally developed. Vital signs as documented. Head exam is normocephalic atraumatic Neck is without JVD, thyromegaly, or carotid bruits. Lungs are clear to auscultation, no focal loss of breath sounds Cardiac exam, Rhythm is regular.. No murmurs, rubs or gallops. Abdominal exam reveals normal bowel sounds, soft epigastric tenderness with guarding no rebound Extremities are nonedematous and both pedal pulses are present Neurologic exam is alert and oriented, no focal loss of strength or sensation Skin is without bruises or rashes Psychologically is without concerns for anxiety or depression Principal Diagnosis 1. Acute pancreatitis 2. Umbilical hernia 3. Aortic root dilatation Discharge Exam Vital Signs Temp Pulse Pulse Resp BP Pulse Ox 02/02/21 12:46 36.8 C 78 69 16 126/80 96 02/02/21 07:55 36.8 C 69 16 126/80 96 02/01/21 22:49 36.6 C 64 16 122/81 95 02/01/21 15:22 36.8 C 80 14 127/85 94 Intake and Output 02/01/21 02/02/21 02/02/21 22:59 06:59 14:59 Intake Total 1940 / 4927.5 1000 / 4927.5 785 / 785 Balance 1940 / 4927.5 1000 / 4927.5 785 / 785 Intake: IV 1100 / 4087.5 1000 / 4087.5 785 / 785 Acetaminophen 1,000 mg In 100 100 / 100 ml @ 400 mls/hr IV Q8H PRN Rx#: [id number] Lactated Ringer's 1,000 ml @ 1000 / 3987.5 1000 / 3987.5 785 / 785 150 mls/hr IV .[id number] ARIANA Rx#: [id number] Oral 840 / 840 Other: # Unmeasured Voids 1 Weight 89.3 kg Patient Weight 02/03/21 06:59 Weight 89.3 kg GENERAL: 51 yo WD/WN WM. Pleasant, cooperative. NAD. LUNGS: Clear to auscultation bilaterally. No accessory muscle use. No W/R/R. CARDIOVASCULAR: Regular rate and rhythm. No M/G/R. No JVD. ABDOMEN: Umbilical hernia present, tender to direct palpation of umbilicus but otherwise nontender, soft. BS normoactive x 4 quad. EXTREMITIES: No edema. Non-tender. Peripheral pulses +2/4. SKIN: Warm, dry, intact. No rashes or lesions. Discharge Data Allergies Allergy/AdvReac Type Severity Reaction Status Date / Time No Known Allergies Allergy Verified 01/30/21 13:27 Consultations 1. Gastroenterology consulted -- please see consult note by HANS Hernandez, for further details. Appreciate recommendations. 2. General surgery consulted -- please see Dr. Meneses's consult note further details regarding umbilical hernia. Appreciate recommendations. Procedures Performed None Ordered Studies Laboratory Results - last 24 hr 02/02/21 02/02/21 05:58 05:58 WBC 5.09 RBC 4.38 L Hgb 13.4 L Hct 38.8 L MCV 88.6 MCH 30.6 MCHC 34.5 RDW Std Deviation 41.6 RDW Coeff of Brittany 12.8 Plt Count 150 MPV 10.0 Immature Gran % (Auto) 0.0 Neut % (Auto) 71.1 Lymph % (Auto) 16.7 [place] % (Auto) 10.2 Eos % (Auto) 1.8 Baso % (Auto) 0.2 Neut # (Auto) 3.62 Lymph # (Auto) 0.85 L [place] # (Auto) 0.52 Eos # (Auto) 0.09 Baso # (Auto) 0.01 Immature Gran # (Auto) 0.00 Sodium 141 Potassium 3.8 Chloride 110 H Carbon Dioxide 27 Anion Gap 4.0 BUN 6 L Creatinine 0.80 Est Cr Clr Drug Dosing 117.3 Est GFR ( Amer) 119.0 Est GFR (Non-Af Amer) 102.7 BUN/Creatinine Ratio 7.7 L Glucose 111 H Calcium 9.1 Total Bilirubin 0.8 Direct Bilirubin 0.2 AST 21 ALT 23 Alkaline Phosphatase 58 Total Protein 6.6 Albumin 2.9 L Globulin 3.7 Albumin/Globulin Ratio 0.8 L Lipase 1323 H Abdomen/Pelvis CT 01/30/21 13:[address] WITH IV CONTRAST CT DOSE: 809.27 mGycm HISTORY: mid and epigastric pain, sudden onset TECHNIQUE: Multiaxial CT images of the abdomen and pelvis were performed following the use of intravenous contrast. A dose lowering technique was utilized adhering to the principles of ALARA. COMPARISON STUDY: Abdomen and pelvis CT 07/26/2020. FINDINGS: Stable 4 mm nodule within the left lower lobe on image 62. Stable 3 mm nodule within the lingula on image 28. No pneumoperitoneum. No pneumatosis. No fractures within the visualized osseous structures. Persistent dilatation of the aortic root which measures approximately 5 cm at the level of the sinuses of Valsalva. Small fat-containing umbilical hernia, unchanged. 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 Stable 1.1 cm cyst within the left hepatic lobe. The gallbladder, spleen, adrenal glands, and kidneys are unremarkable. No hydronephrosis. Normal bladder. There is a left circumaortic renal vein. The portal vein is patent. The portosplenic confluence is also patent. Mild fat stranding at the pancreatic head persists. There is slight progression of the focal area of fat stranding and ill-defined fluid anterior to the pancreatic neck which is best seen on image 162. This measures approximately 3 cm. This is inferior to the gastric antrum. No loculated fluid collections or gas to suggest an abscess or fistula at this time. Mild heterogeneous enhancement within the pancreatic head. Therefore, these findings are consistent with progression of the acute pancreatitis. The main pancreatic duct is at the upper limits of normal measuring 3 mm. Progressive thickening of the inferior wall of the gastric antrum and duodenum. This is likely reactive to the suspected acute pancreatitis. No retroperitoneal lymphadenopathy. There is a left circumaortic renal vein. No pelvic free fluid. No evidence for bowel obstruction. The colon is normal and course and caliber. Normal appendix. Mild mesenteric lymphadenopathy persists. This is likely reactive to the suspected acute pancreatitis. IMPRESSION: 1. Heterogeneous enhancement within the head and body of the pancreas with progressive peripancreatic fluid/inflammatory change anteriorly. Findings likely represent progression of the acute pancreatitis. No loculated fluid collections to suggest an abscess at this time. 2. Progressive thickening at the inferior wall of the gastric antrum adjacent to the inflammatory change/fluid. This is likely reactive. No extraluminal gas to suggest a fistula. 3. Mild mesenteric lymphadenopathy persists. This is likely secondary to the acute pancreatitis. 4. Redemonstration of the aortic root dilatation measuring up to 5 cm. Follow-up cardiology consultation with echocardiogram recommended for further evaluation. ACT 112: Negative or not required by law. Electronically signed by: Dilshad Miles M.D. 01/30/2021 3:20 PM Cholangiopancreatography MRI 01/31/21 08:47 MRCP CLINICAL HISTORY: Upper abdominal pain. Recurrent pancreatitis. Elevated bilirubin. COMPARISON STUDY: Abdominal CT dated 01/30/2021. MRCP dated 06/25/2020. TECHNIQUE: Abdominal MRCP is performed utilizing various T2-weighted sequences in the axial and coronal planes. IV contrast was not administered for this examination. Examination is modestly degraded by motion artifact. FINDINGS: The gallbladder is normal as visualized. No gallstones are identified. There is no intra or extrahepatic biliary ductal dilatation. The common bile duct measures up to 3 mm diameter. No intraluminal filling defects are seen to suggest choledocholithiasis. The proximal pancreatic duct is normal in caliber. There is mild dilatation of the remainder of the pancreatic duct which measures up to 5 mm. There is peripancreatic infiltration and fluid consistent with acute pancreatitis. Mild wall thickening of the adjacent duodenum and stomach is likely reactive. No organized peripancreatic fluid collection is identified. A 13 mm cyst is incidentally noted in the left lobe of liver. The unenhanced liver is otherwise grossly unremarkable, as is the spleen, adrenal glands, and kidneys. The abdominal aorta is normal in caliber. There is no bowel obstruction. No pleural effusion is identified. The heart is enlarged. Aneurysmal dilatation of the aortic root is unchanged measuring up to 5 cm. IMPRESSION: 1. Findings are consistent with acute pancreatitis. 2. Normal MRCP evaluation of the gallbladder and biliary tree. 3. There is mild dilatation throughout the pancreatic duct, likely related to acute pancreatitis. 4. Cardiomegaly with aneurysmal dilatation of the aortic root. This is similar to prior studies. Dictated: 01/31/2021 5:06 PM Transcribed: 01/31/2021 5:48 PM Sharita [id number] [email or web address] Electronically signed by: Daquan Da Silva M.D. 01/31/2021 6:32 PM Hospital Course (1) Acute pancreatitis: - Diet advanced to clear liquids on 02/01, he tolerated well - Given his history of necrotic pancreatic cyst and elevated TB, MRCP obtained, results WNL (noted above) - He was hydrated with LR at 150 cc/hr -- capped AM of 02/02 - Pain control ordered with Dilaudid - Zofran and PPI - GI consult ordered, appreciate their recommendations - ?GB sludge causing recurrent AP - agree with o/p elective cholecystectomy, but general surgery feels this should be done at [facility] as opposed to locally - Immunoglobulins sent to r/o Autoimmune hepatitis - Lipase uptrended on 02/01 to 4132 (from 1498) -- unclear as to why; however, pt is clinically improving so this doesn't necessarily correlate. - This AM (02/02) lipase down to 1323. Pt pain free and has no n/v. Diet advanced to regular. - He is tolerating dietary advancement, will plan to d/c home with outpatient follow up. (2) Umbilical hernia: - Appreciate general surgery recommendations - Umbilical hernia is containing fat, no evidence of incarceration or strangulation - Can perform elective repair as an outpatient - Will arrange f/u appt with Dr. Meneses (3) Aortic root dilatation: - Aortic root dilatation is once again re demonstrated on imaging - Unclear whether he had follow-up after his last hospital stay regarding this issue - Will be assured to arrange hospital follow-up with our nurse navigator assisting in cardiology. Since the patient is involved in the [facility] will refer to Dr. Herrera Patient is doing well, his pancreatitis has clinically resolved despite elevated lipase level. He is tolerating dietary advancement. He is medically stable for discharge home today. Will refer to Dr. Meneses to schedule elective umbilical hernia repair. Also advised pt to contact [facility] to set up appt with general surgery for cholecystectomy. He does have contacts from when he required surgery last spring. Work excuse to be provided, he can resume his job w/o restrictions on Sunday 02/04. Total Time Total Time Spent Total Time Spent (In Minutes): >30 minutes Discharge Plan Discharge Items Patient Disposition: Home - Self-Care Reason For Visit: PANCREATITIS Discharge Diagnosis: Pancreatitis Umbilical hernia Condition on Discharge: Good Activity: Resume your previous activity Non-emergency contact: Primary Care Provider and Surgeon Call non-emergency contact if: your symptoms worsen Follow-up/Referrals: Yobany Meneses MD, FACS [Physician] - Dharmesh Ryan [Primary Care Provider] - Diet: Regular Addtl Attending Provider Instructions: 1. Follow up with family doctor within 1 week of discharge. 2. Follow up with general surgery, Dr. Meneses, within one month to discuss elective repair of umbilical hernia. 3. Contact [facility] to set up appointment with surgery to discuss removal of gallbladder. 4. Follow up as scheduled with Dr. Herrera for enlarged vessel in your heart. 4. May return to work without restriction. 5. Return to hospital for worsening abdominal pain, nausea, vomiting, fever. Pending Studies at Discharge: No Stand-Alone Forms: [employer], Work/School Release, Smoking Cessation Medications and DC Order Prescriptions: No Action No Known Home Medications RF: 0 Discharge Orders: Discharge Order (Routine); Ordered 02/02/21 Ordered By: Kasie Davis/Other Patient Handouts: Understanding Pancreatitis Admission Data Admit Date/Time: 02/01/21 11:36 Attending Provider: Ilia Gannon Admit Provider: Fernando Pa Primary Care Provider: Dharmesh Ryan Other Providers: Fernando Pa ; Demetri iGron ; Yobany Meneses ; Luis Armando Hsieh ; Behzad Power ; Hong Coon Jr ; Roel Watson ; Jay Conde ; Linda Sanches ; Olayinka Patrick ; Gary Capps Other Interventions: Discharge Summary Assessment (RN) Last Done: 02/02/21 12:46 Supervising Physician Co-Signing Physician Notes Attending Attestation and Discharge Note: Pt seen & examined, chart reviewed, discharge care plan d/w SHAD Garcia. I agree w/ the perez components of her discharge documentation. 51yo male - prior h/o necrotizing pancreatitis & pseudocyst formation early 2020 - presented w/ acute pancreatitis. Treated in customary fashion with IVF, bowel rest, pain meds. GI consultation for additional recs. Etiology of pancreatitis uncertain - no obvious gallstones; no etoh; MRCP w/o divisum; nl calcium; nl trigs. No recent viral process. No offending medications. ?referral for elective cholecystectomy? IgG subclasses pending to r/o autoimmune pancreatitis. Patient had tender umbilical hernia during the stay - no evidence of incarceration or strangulation. Surgery also advised elective repair in the future. Lipase trending down at discharge. Abd pain improved. gen - NAD heart - RRR, s1 s2 lungs - CTA b/l abd - soft, minimal tenderness epigastric region, BS+, no HSM; umbilical hernia - small, reducible, nontender Ascending aortic aneurysm - needs f/u for this - CT surgery would be best given the current size. Low fat diet x 10 days at discharge. Ilia Gannon MD Coding Level of Care Code D/C DAY MANAGEMENT >30 MINS Diagnoses Acute pancreatitis K85.90 Acute pancreatitis complication: unspecified Pancreatitis type: unspecified pancreatitis type Umbilical hernia K42.9 Aortic root dilatation I77.810
[2021-02-03 07:51] LABS: Immunoglobulin G4 11.4 mg/dL (4.0-86.0)
== END 2021-02-02 13:57 | disposition home or self-care (01) | DRG 440 ==
LOC: ED 12:02 → 3N 12:02 → SUATTDRO 16:53 → 3N 20:44